=== PATIENT | female | born 1980 | race Caucasian/White ===

== ENCOUNTER 2017-03-29 22:03 | Inpatient (IN) | payer MEDICAID ==
[2017-03-29 22:03] VITALS: BMI 31.3
--- NOTE | 2017-03-29 22:44 | ED PDOC ---
HPI:Nausea, Vomiting, Diarrhea Chief Complaint (Provider): vomiting, diarrhea History Per: Patient History/Exam Limitations: no limitations Onset/Duration Of Symptoms: Hrs Current Symptoms Are (Timing): Better Have you had recent travel within the past 21 days to any of the following countries: [place], [place], [place] or [place]?: No Context: Food (Potato/cheese soup) Quality Of Discomfort: "Pain" Associated Symptoms: Fever, Nausea, Vomiting, Diarrhea, Other (epigastric pain) Last Bowel Movement: Today Additional Complaint(s): 37 y/o F with PMhx of LES, CVA, Splenectomy, presents c/o vomiting, nausea, diarrhea associated with one episode of fever Yesterday. Patient associates the onset of GI symptoms with a potato soup with cheese she ate last night. Has had about 10 episodes of NBNB vomits since last night and about 6 diarrheas. As per patient BM initially were watery but lately became dark. LMB around 2pm. Last vomit around 6pm. She took imodium and zofran at home. Finished Z-pack 2 days ago for resp infection. Patient feels weak and has generalized body aches, c/o epigastric pain. Abnormal Vaginal Bleeding: No Last Menstral Period: Current has period <Joshua Justin - Last Filed: 03/30/17 04:57> <Gabriel Hansen - Last Filed: 03/30/17 20:33> Time Seen by Provider: 03/29/17 22:26 Chief Complaint (Nursing): Flu-like Symptoms NIHSS Stroke Scale - How Severe is the Stroke Level of Consciousness: 2=Obtunded LOC to Questions: 2=Neither correct LOC to commands: 2=Neither correct Best Gaze: 0=Normal Visual: 0=No visual loss Facial: 0=Normal Motor Arm - Left: 4=No movement Motor Arm - Right: 0=No drift Motor Leg - Left: 0=No drift Motor Leg - Right: 0=No drift Limb Ataxia: 0=Absent Sensory: 0=Normal (This NIH assesment was done at 1:30AM at time of observed change in mental status) Best Language: 2=Severe aphasia Dysarthia: 2=Severe, near unintelligible or worse Extinction & Inattention (Neglect): 0=Normal, no object Score: 14 <Gabriel Hansen - Last Filed: 03/30/17 20:33> Past Medical History Vital Signs: Last Vital Signs Temp 98.7 F 03/29/17 22:10 Pulse 127 H 03/29/17 22:10 Resp 18 03/29/17 22:10 BP 92/45 L 03/29/17 22:10 Pulse Ox 99 03/29/17 22:10 - Medical History PMH: Anxiety, Depression, Fractures (METARSAL LEFT FOOT/STRESS FX. /RT WRIST), HTN, Migraine, Chronic Kidney Disease (LUPUS NEPHRITIS) - Surgical History Surgical History: Cholecystectomy - Family History Family History: States: No Known Family Hx <Joshua Justin - Last Filed: 03/30/17 04:57> Vital Signs: Last Vital Signs Temp 97.9 F 03/30/17 01:29 Pulse 119 H 03/30/17 01:29 Resp 18 03/30/17 01:29 BP 82/49 L 03/30/17 01:29 Pulse Ox 99 03/30/17 03:38 <Gabriel Hansen - Last Filed: 03/30/17 20:33> - Home Medications Home Medications: Ambulatory Orders Medication Instructions Recorded Methylphenidate HCl [Concerta] 18 mg PO DAILY 11/10/13 Mycophenolate Mofetil [Cellcept] 500 mg PO BID 11/10/13 Prednisone 5 mg PO DAILY 11/10/13 Sertraline [Zoloft] 100 mg PO DAILY 11/10/13 Simvastatin 20 mg PO HS 05/30/14 Valsartan/Hydrochlorothiazide 1 tab PO DAILY 05/30/14 [Valsartan-Hctz 160-12.5 mg Tab] - Allergies Allergies/Adverse Reactions: Allergies Allergy/AdvReac Type Severity Reaction Status Date / Time latex Allergy RASH Verified 03/29/17 22:10 Penicillins Allergy RASH Verified 03/29/17 22:10 Quinolones Allergy ANAPHYLAXIS Verified 03/29/17 22:10 Review of Systems ROS Statement: Except As Marked, All Systems Reviewed And Found Negative Constitutional: Positive for: Fever (once, yesterday) Gastrointestinal: Positive for: Nausea, Vomiting, Abdominal Pain, Diarrhea Neurological: Positive for: Weakness <Joshua Justin - Last Filed: 03/30/17 04:57> Physical Exam - Reviewed Vital Signs Reviewed: Yes - Physical Exam Appears: Positive for: Non-toxic, Uncomfortable Skin: Positive for: Normal Color, Dry Eye Exam: Positive for: Normal appearance, PERRL Cardiovascular/Chest: Positive for: Regular Rate, Rhythm. Negative for: Gallop Respiratory: Positive for: Normal Breath Sounds. Negative for: Crackles, Rales , Wheezing Gastrointestinal/Abdominal: Positive for: Tenderness (diffuse, worse epigastrium ). Negative for: Distended, Guarding, Rebound Extremity: Positive for: Pedal Edema (trace), Capillary Refill. Negative for: Tenderness, Calf Tenderness Neurologic/Psych: Positive for: Alert, Oriented, Motor/Sensory Deficits (L/arm, L/leg weakness/deformity) <Joshua Justin - Last Filed: 03/30/17 04:57> - Laboratory Results Result Diagrams: 03/29/17 23:59 03/30/17 00:55 - ECG O2 Sat by Pulse Oximetry: 99 - Progress ED Course And Treament: Patient responded well to treatment initially. Labs reviewed showing leukocytosis, low carbon dioxide and GAYE. Suddenly patient developed AMS, accucheck was 70s and she received D50 x1 with some improvement. another 1L of NS IV given to patient as well as Flagyl x1 IV CT head was then added to initial order of CT abd and pelvis. Patient with persistent AMS, Ativan once given to patient Patient to be admitted to ICU, discussed with medical team <Joshua Justin - Last Filed: 03/30/17 04:57> - Laboratory Results Result Diagrams: 03/30/17 15:00 03/30/17 15:00 - Critical Care Total Time (In Min): 60 <Gabriel Hansen - Last Filed: 03/30/17 20:33> Medical Decision Making Medical Decision Making: Gastroenteritis with dehydration IV fluids Zofran, pepcid IV, Benadryl CBC, CMP, Stool Cx, FOBT, Lipase, Phosp, Mg <Joshua Justin - Last Filed: 03/30/17 04:57> Medical Decision Making: Patient seen by this provider personally; multiple reevaluations made by provider and admission arrangements made with hospitalist and FP team. Patient' s mother is known to this provider and is next of kin. She is a physician and is intimately involved with the patient's chronic illnesses and health care decisions. Provider called and spoke at length with her and made her aware of the patient's critical status. She is unfortunately wheel chair bound and is unable to come at this time. She will communicate with her who will come to facility at 8AM. Provider also ecplained his concern for possible underlying hematalogic malignancy given patients deranged WBC and differential. 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 Provider has ordered consultation with Dr Devin Forbes and will attempt to communicate with her in am. <Gabriel Hansen - Last Filed: 03/30/17 20:33> Disposition - Patient ED Disposition Is Patient to be Admitted: Yes - Disposition Disposition Time: 04:55 - Pt Status Changed To: Hospital Disposition Of: Inpatient - Admit Certification Admit to Inpatient:: After my assessment, the patient will require hospitalization for at least two midnights. This is because of the severity of symptoms shown, intensity of services needed, and/or the medical risk in this patient being treated as an outpatient. <Joshua Justin - Last Filed: 03/30/17 04:57> <Gabriel Hansen - Last Filed: 03/30/17 20:33> - Clinical Impression Clinical Impression: GAYE (acute kidney injury), Dehydration, Leukocytosis, Altered mental status - Disposition Condition: FAIR
[2017-03-29] MEDS ORDERED: Sodium Chloride 0.9% 1,000 ML IV STA (22:50)
[2017-03-29] MEDS ORDERED: DiphenhydrAMINE 50 mg/ml Inj IVP STA (23:16)
[2017-03-30 01:04] LABS: BASO # 0.1 K/uL (0.0-0.2); BASO % 0.2 % (0.0-2.0); HEMATOCRIT 33.2 % (34.0-47.0); LYMPH # 0.3 K/uL (1.0-4.3); LYMPH % 0.7 % (20.0-40.0); MEAN CELL VOLUME 85.8 fl (81.0-99.0); MEAN CORPUSCULAR HEMOGLOBIN 26.7 pg (27.0-31.0); MEAN CORPUSCULAR HGB CONC 31.2 g/dL (33.0-37.0); MEAN PLATELET VOLUME 9.7 fl (7.2-11.7); MONO # 1.2 K/uL (0.0-0.8); NEUT # 38.8 K/uL (1.8-7.0); NEUT % 96.1 % (50.0-75.0); PLATELET COUNT 239 K/uL (130-400); RED CELL DISTRIBUTION WIDTH 16.5 % (11.5-14.5)
[2017-03-30 01:12] LABS: WHITE BLOOD COUNT 40.4 K/uL (4.8-10.8)
[2017-03-30 01:13] LABS: ALB/GLOB RATIO 0.8 (1.0-2.1); BILIRUBIN,TOTAL 0.1 mg/dl (0.2-1.3); CALCIUM 6.2 mg/dL (8.4-10.2); PHOSPHOROUS 6.2 mg/dl (2.5-4.5); POTASSIUM 5.1 MMOL/L (3.6-5.0); TOTAL PROTEIN 5.4 G/DL (6.3-8.2)
[2017-03-30 01:14] LABS: MAGNESIUM 0.9 MG/DL (1.6-2.3)
[2017-03-30] MEDS ORDERED: Iohexol 240 (50 ml) PO ONE (01:29)
[2017-03-30] MEDS ORDERED: Sodium Chloride 0.9% 1,000 ML IV STA (01:31)
[2017-03-30] MEDS ORDERED: Iohexol 240 (50 ml) PO STA (01:32)
[2017-03-30 01:49] LABS: METAMYELOCYTE 8 % (0-0); MYELOCYTE 4 % (0-0); NEUTROPHIL 78 % (42-75); TOTAL CELLS COUNTED 100
[2017-03-30 01:50] LABS: ACANTHOCYTES SLIGHT
[2017-03-30] MEDS ORDERED: metroNIDAZOLE 500mg/100ml NS 100 ML IVPB STA (02:12)
[2017-03-30] MEDS ORDERED: Dextrose 50% SYRINGE Inj (50 ml) IVP ONE ×2 (02:13→02:20)
[2017-03-30] MEDS ORDERED: DOPamine 400mg/250ml D5W 400 MG/250 ML BAG IV ONE (02:55)
--- NOTE | 2017-03-30 03:17 | CT ---
EXAM: CT Abdomen and Pelvis Without Intravenous Contrast CLINICAL HISTORY: 37 years old, female; Pain; Abdominal pain; Generalized; Additional info: Abd pain/diarrhea/leukocytosis TECHNIQUE: Axial computed tomography images of the abdomen and pelvis without intravenous contrast. All CT scans at this facility use one or more dose reduction techniques, viz.: automated exposure control; ma/kV adjustment per patient size (including targeted exams where dose is matched to indication; i.e. head); or iterative reconstruction technique. Coronal and sagittal reformatted images were created and reviewed. COMPARISON: No relevant prior studies available. FINDINGS: Limitations: Motion artifact - mild. Lack of intravenous contrast. Lower thorax: Mild atelectasis/scarring. Small hiatal hernia. ABDOMEN: Liver: Unremarkable. Gallbladder and bile ducts: Cholecystectomy. No ductal dilation. Pancreas: Unremarkable. No ductal dilation. Spleen: Not visualized. Adrenals: Mild stranding about LEFT adrenal gland, nonspecific. Kidneys and ureters: Minimal stranding about kidneys, nonspecific. Lobulated kidneys. No renal calculi. No hydronephrosis. Stomach and bowel: Segmental areas of mild mural thickening vs underdistention of LEFT colon. No associated inflammatory stranding. No obstruction. Appendix: Normal caliber. No inflammation. PELVIS: Bladder: Unremarkable. No stones. Reproductive: Small ovarian cysts/follicles. ABDOMEN and PELVIS: Intraperitoneal space: No significant fluid collection. No free air. Bones/joints: Few healing rib fractures. Healing RIGHT pubic rami fractures. Mild scoliosis. Soft tissues: Unremarkable. Vasculature: Minimal atherosclerotic disease. No aneurysm. Lymph nodes: Several subcentimeter short axis lymph nodes within retroperitoneum. IMPRESSION: 1. Mild colitis vs underdistention. Favor underdistention. Clinical correlation is needed. 2. Mild stranding about LEFT adrenal gland, nonspecific. Clinical correlation is needed. 3. Incidental/non-acute findings are described above.
[2017-03-30] MEDS ORDERED: metroNIDAZOLE 500mg/100ml NS 100 ML IVPB ONE (03:23)
--- NOTE | 2017-03-30 03:29 | CT ---
EXAM: CT Head Without Intravenous Contrast CLINICAL HISTORY: 37 years old, female; Signs and symptoms; Altered mental status/memory loss; Additional info: AMS TECHNIQUE: Axial computed tomography images of the head/brain without intravenous contrast. All CT scans at this facility use one or more dose reduction techniques, viz.: automated exposure control; ma/kV adjustment per patient size (including targeted exams where dose is matched to indication; i.e. head); or iterative reconstruction technique. Coronal and sagittal reformatted images were created and reviewed. COMPARISON: No relevant prior studies available. FINDINGS: Brain: Mild atrophy, RIGHT greater than LEFT. Mild encephalomalacia within RIGHT parietal region. Probable mild encephalomalacia within RIGHT temporal region. No intracranial hemorrhage. Irregular calcifications about LEFT basal ganglia. Few scattered tiny parenchymal calcifications. Few scattered foci of decreased attenuation within periventricular/subcortical white matter. Probable chronic lacunar infarcts about RIGHT basal ganglia/internal capsule. No definite edema. Ventricles: No hydrocephalus. Bones/joints: No acute fracture. Periosteal thickening of sinuses. Soft tissues: Unremarkable. Sinuses: Postsurgical changes. Complete opacification of frontal sinuses. [id number] mucosal thickening of ethmoid sinuses, RIGHT greater than LEFT. Complete opacification of RIGHT maxillary sinus. Mildly coastal thickening/minimal fluid of LEFT maxillary sinus. Complete opacification of RIGHT sphenoid sinus. Near complete opacification of LEFT sphenoid sinus. Mastoid air cells: Partial opacification of RIGHT mastoid. Orbits: Unremarkable as visualized. IMPRESSION: 1. Nonspecific white matter changes. Acute infarction may be CT occult within first 24 hours. If a focal deficit persists, consider followup CT or MRI for further evaluation. 2. Sinus disease. 3. Mastoid disease. 4. Incidental/non-acute findings are described above.
[2017-03-30] MEDS ORDERED: methylPREDNISolone 125 MG in Sodium Chloride 0.9% 50 ML IVPB ONE (04:11)
[2017-03-30] MEDS ORDERED: Magnesium Sulfate 2 GM in Sodium Chloride 0.9% 100 ML IVPB ONE (04:25)
[2017-03-30] MEDS: Sodium Chloride 0.9% 1,000 ML IV SCH ×2 (04:27→17:06)
--- NOTE | 2017-03-30 04:47 | CP.PCM.HP ---
History of Present Illness - History of Present Illness History of Present Illness: - History was obtained from patients chart and the ER attending, since patient was having change in mental status, and was given a sedative when the comic writer went down to see the patient. 34 YO F w/ PMH of SLE, SLE nephritis, CVA, HTN presented to the ER with nausea, vomiting associated with a fever of 101 yesterday. Today patient states she is feeling weakness, w/ generalized body aches and epigastric pain. - Patient associates her symptoms of nausea and vomiting with potato soup and cheese she had yesterday. Patient has had 10 episodes of non bloody/ non bilious vomit and 6 episodes of diarrhea. Patients last bm was around 2pm and had her last episode of vomiting at 6pm. She had recently been treated for a resp infection for which she finished taking the Z pack 2 days ago. 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 Father: HTN Maternal Grandfather: Lymphoma Maternal Grandmother: SLE Allergies: Quinolones-anaphylaxis, penicillin-rash, cephalosporins-rash ER Course: CBC: Showed leucocytosis : WBC: 40.4, CMP: Abn values: Low CO2: 10, and GAYE, Magnesium: .9 Accucheck: 70's. Patient was given D50 x 1 with some improvement - Flagyl x 1 IV - IVF - CT head: No acute findings noted - CT abdomen:Mild Colitis vs underdistention. Mild stranding about left adrenal gland. Present on Admission - Present on Admission Any Indicators Present on Admission: No History of DVT/PE: No History of Uncontrolled Diabetes: No Urinary Catheter: No Decubitus Ulcer Present: No Review of Systems - Review of Systems All systems: reviewed and no additional remarkable complaints except Past Patient History - Past Medical History & Family History Past Medical History?: Yes - Past Social History Smoking Status: Former Smoker - CARDIAC Hx Hypertension: Yes - PULMONARY Hx Respiratory Disorders: No - NEUROLOGICAL Hx Migraine: Yes - HEENT Hx HEENT Problems: No - RENAL Hx Chronic Kidney Disease: Yes (LUPUS NEPHRITIS) - ENDOCRINE/METABOLIC Hx Endocrine Disorders: (Lupus) - HEMATOLOGICAL/ONCOLOGICAL Hx Blood Transfusions: Yes Hx Blood Transfusion Reaction: No - INTEGUMENTARY Hx Dermatological Problems: Yes (LUPUS SUN RASH) - MUSCULOSKELETAL/RHEUMATOLOGICAL Hx Fractures: Yes (METARSAL LEFT FOOT/STRESS FX. /RT WRIST) - GASTROINTESTINAL Hx Gastrointestinal Disorders: No - GENITOURINARY/GYNECOLOGICAL Hx Genitourinary Disorders: Yes (LUPUS NEPHRITIS) - PSYCHIATRIC Hx Psychophysiologic Disorder: Yes - SURGICAL HISTORY Hx Cholecystectomy: Yes - ANESTHESIA Hx Anesthesia: Yes Hx Anesthesia Reactions: No Meds Allergies/Adverse Reactions: Allergies Allergy/AdvReac Type Severity Reaction Status Date / Time latex Allergy RASH Verified 03/29/17 22:10 Penicillins Allergy RASH Verified 03/29/17 22:10 Quinolones Allergy ANAPHYLAXIS Verified 03/29/17 22:10 Physical Exam - Constitutional Appears: Confused - Eye Exam Eye Exam: Normal appearance, PERRL Pupil Exam: NORMAL ACCOMODATION - Respiratory Exam Respiratory Exam: Clear to Auscultation Bilateral, NORMAL BREATHING PATTERN. absent: Rhonchi, Wheezes - Cardiovascular Exam Cardiovascular Exam: REGULAR RHYTHM, +S1, +S2 - GI/Abdominal Exam GI & Abdominal Exam: Normal Bowel Sounds, Soft, Tenderness Additional comments: epigastric tenderness - Extremities Exam Additional comments: Left arm and left leg weakness and deformity - Neurological Exam Additional comments: Unable to preform because of patients mental status - Skin Skin Exam: Normal Color, Warm Results - Vital Signs Recent Vital Signs: Last Vital Signs Temp 99.4 F 03/30/17 04:33 Pulse 126 H 03/30/17 04:33 Resp 18 03/30/17 04:33 BP 102/71 03/30/17 04:33 Pulse Ox 99 03/30/17 04:33 - Labs Result Diagrams: 03/29/17 23:59 03/30/17 00:55 Labs: Laboratory Results - last 24 hr 03/29/17 03/30/17 03/30/17 23:59 00:55 01:00 WBC 40.4 H* RBC 3.87 Hgb 10.3 L Hct 33.2 L MCV 85.8 MCH 26.7 L MCHC 31.2 L RDW 16.5 H Plt Count 239 MPV 9.7 Neut % (Auto) 96.1 H Lymph % (Auto) 0.7 L Pacific % (Auto) 3.0 Eos % (Auto) 0.0 Baso % (Auto) 0.2 Neut # 38.8 H Lymph # 0.3 L [place] # 1.2 H Eos # 0.0 Baso # 0.1 Neutrophils % (Manual) 78 H Band Neutrophils % 8 H Lymphocytes % (Manual) 1 L Monocytes % (Manual) 1 Metamyelocytes % 8 H Myelocytes % 4 H Platelet Estimate Normal Hypochromasia (manual) Slight Anisocytosis (manual) Slight Target Cells Slight Ovalocytes Slight Acanthocytes (Spur) Slight Sodium 136 Potassium 5.1 H Chloride 115 H Carbon Dioxide 10 L* D Anion Gap 16 BUN 52 H Creatinine 4.2 H Est GFR ( Amer) 14 Est GFR (Non-Af Amer) 12 POC Glucose (mg/dL) Random Glucose 95 Lactic Acid 1.3 Calcium 6.2 L Phosphorus 6.2 H Magnesium 0.9 L* Total Bilirubin 0.1 L AST 79 H ALT 48 Alkaline Phosphatase 53 Total Creatine Kinase Total Protein 5.4 L Albumin 2.4 L Globulin 3.0 Albumin/Globulin Ratio 0.8 L Lipase 141 Influenza Typ A,B (EIA) 03/30/17 03/30/17 03/30/17 02:13 02:31 03:41 WBC RBC Hgb Hct MCV MCH MCHC RDW Plt Count MPV Neut % (Auto) Lymph % (Auto) Pacific % (Auto) Eos % (Auto) Baso % (Auto) Neut # Lymph # Pacific # Eos # Baso # Neutrophils % (Manual) Band Neutrophils % Lymphocytes % (Manual) Monocytes % (Manual) Metamyelocytes % Myelocytes % Platelet Estimate Hypochromasia (manual) Anisocytosis (manual) Target Cells Ovalocytes Acanthocytes (Spur) Sodium Potassium Chloride Carbon Dioxide Anion Gap BUN Creatinine Est GFR ( Amer) Est GFR (Non-Af Amer) POC Glucose (mg/dL) 72 281 H Random Glucose Lactic Acid Calcium Phosphorus Magnesium Total Bilirubin AST ALT Alkaline Phosphatase Total Creatine Kinase Total Protein Albumin Globulin Albumin/Globulin Ratio Lipase Influenza Typ A,B (EIA) Negative for flu a/b 03/30/17 03:44 WBC RBC Hgb Hct MCV MCH MCHC RDW Plt Count MPV Neut % (Auto) Lymph % (Auto) Pacific % (Auto) Eos % (Auto) Baso % (Auto) Neut # Lymph # Pacific # Eos # Baso # Neutrophils % (Manual) Band Neutrophils % Lymphocytes % (Manual) Monocytes % (Manual) Metamyelocytes % Myelocytes % Platelet Estimate Hypochromasia (manual) Anisocytosis (manual) Target Cells Ovalocytes Acanthocytes (Spur) Sodium Potassium Chloride Carbon Dioxide Anion Gap BUN Creatinine Est GFR ( Amer) Est GFR (Non-Af Amer) POC Glucose (mg/dL) Random Glucose Lactic Acid Calcium Phosphorus Magnesium Total Bilirubin AST ALT Alkaline Phosphatase Total Creatine Kinase 64 Total Protein Albumin Globulin Albumin/Globulin Ratio Lipase Influenza Typ A,B (EIA) Assessment & Plan - Assessment and Plan (Free Text) Assessment: 1) Abdominal pain most likely secondary to Collitis - NPO except meds - IVF @ 125 - Flagyl 500mg Q8 - CT scan: CT abdomen:Mild Colitis vs underdistention - Morphine 2mg IVP PRN for pain - C Diff ordered, since patient has been having diarrhea secondary to taking antibiotics recently 2) Leukmoid reaction - Leucocytosis w/ increased neutrophil precursors - Metomyelocytes:8%, Myelocytes: 4% - Pt has history of ITP - Need to order LAP : Will call lab unable to find in EMR - F/U w/ LDH - Consulted Hem Onc: Dr. Forbes 3) Pre renal failure secondary to dehydration - BUN: 52, Creatinine: 4.2. BUN Creatine ratio >20:1 - 2L bolus in ER. Continue with IVF. - Nephrology consulted. 4) SLE nephritis - IV methylprednislone - c/w Mycophenolic acid - Nephro consulted 5) Diarrhea - F/U with C diff and stool cultures 6) Hypertension - Currently hold Diovan , since patient is hypotensive 7) Hyperlipidemia - Simvastatin 20 mg 8) Hypomagnesemia - Mg+: .9 - 2 grams of Magnesium has been ordered - F/U with repeat values 9) Prophylaxis - DVT : 5000 Heparin SC and SCD - GI: Protonix
[2017-03-30] MEDS: metroNIDAZOLE 500mg/100ml NS 100 ML IVPB SCH ×2 (10:00→17:08)
[2017-03-30] MEDS ORDERED: methylPREDNISolone 40 MG in Sodium Chloride 0.9% 50 ML IVPB SCH (10:00)
--- NOTE | 2017-03-30 11:29 | CP.PCM.PN ---
Subjective - Date & Time of Evaluation Date of Evaluation: 03/30/17 Time of Evaluation: 09:00 - Subjective Subjective: Patient seen an evaluated at the bedside this morning. Non verbal, responsive to pain. Eyes open, no signs of acute distress. Objective - Vital Signs/Intake and Output Vital Signs (last 24 hours): Temp Pulse Resp BP Pulse Ox 97.5 F L 135 H 28 H 99/68 L 99 03/30/17 08:00 03/30/17 08:00 03/30/17 08:29 03/30/17 08:00 03/30/17 08:00 - Medications Medications: Current Medications Heparin Sodium (Porcine) (Heparin) 5,000 units SC Q12 HECTOR PRN Reason: Protocol Sodium Chloride (Sodium Chloride 0.9%) 1,000 mls @ 125 mls/hr IV .Q8H [facility] Stop: 03/31/17 04:09 Last Admin: 03/30/17 04:27 Dose: 125 mls/hr Metronidazole (Flagyl 500mg/100ml Ns) 100 mls @ 100 mls/hr IVPB Q8 HECTOR PRN Reason: Protocol Methylprednisolone 40 mg/ (Sodium Chloride) 50 mls @ 100 mls/hr IVPB Q6 [facility] Last Admin: 03/30/17 06:50 Dose: 100 mls/hr Morphine Sulfate (Morphine) 2 mg IVP Q6 PRN PRN Reason: Pain, moderate (4-7) Mycophenolate Mofetil (Cellcept Cap) 500 mg PO BID [facility] Ondansetron HCl (Zofran Inj) 4 mg IVP Q6 PRN PRN Reason: Nausea/Vomiting Pantoprazole Sodium (Protonix Inj) 40 mg IVP DAILY [facility] - Labs Labs: 03/29/17 23:59 03/30/17 00:55 Assessment and Plan - Assessment and Plan (Free Text) Assessment: Assessment: 37 y/o female woth PMHx of Lupus, Lupus Nephritis (Stage V), Hx of CVA and Meningitis admitted for Sepsis, GAYE, and AMS. #Sepsis -Afebrile, Tachycardic, Tachypnic, Leukocytosis (WBC 40 on admission) -Likely secondary to Colitits as pt had GI symptoms noted on Abdominal CT -Lactic Acid 1.3 -Flagyl 500mg q8 -Received 2 blous in the ER. -IV fluid hydration, NS at 125cc/hr. Central Line placement planned as access was lost -Stool Cx, BCx, UA ordered -Cdiff ordered since pt had recent hx of taking ABX -NPO except meds -ID Consulted #AMS -Verbally unresponsive this morning. Mentation was in noted to be in tact on arrival to ED -Pt recieved Morphine, Ativan, and Benadryl for agitation which may have induced opiod psychosis -Other likely etiologies include Sepsis/Metabolic Encephalopathy vs Analgesic psychosis -F/U VBG, LDH, Utox, Alcohol serum, Ammonium -Neuro Consulted #Leukmoid reaction - Leucocytosis w/ increased neutrophil precursors - Metomyelocytes:8%, Myelocytes: 4% - Pt has history of ITP - Need to order LAP : Will call lab unable to find in EMR - F/U w/ LDH - Consulted Hem Onc: Dr. Forbes. Consult appreciated- likely a leukomoid reaction. #Acute Kidney Injury secondary to dehydration - BUN: 52, Creatinine: 4.2. BUN Creatine ratio >20:1 - 2L bolus in ER. C/w IV fluids -Hypomagnesia, Mg repleted, 2g Mg given. -Nephrology consulted. -F/U BMP, CPK # SLE nephritis - IV methylprednislone 125mg x1 in ER, now on 40mg q6 IVPB - c/w Mycophenolic acid 500mg PO BID - Nephro consulted (Dr. Florian) -F/U Complement C3, C4, and Creatine #Diarrhea - F/U with C diff and stool cultures # Hypertension - BP 90's/60's -Likely secondary to sepsis -Currently hold Diovan #Hyperlipidemia - Simvastatin 20 mg # Prophylaxis - DVT : 5000 Heparin SC and SCD - GI: Protonix
--- NOTE | 2017-03-30 11:32 | CP.PCM.PN ---
Subjective - Date & Time of Evaluation Date of Evaluation: 03/30/17 Time of Evaluation: 11:30 - Subjective Subjective: Pt seen, peripheral smear examined, She seems to have a leukomoid reaction, no promyeloblastts or blasts, No evidence of leukemia Further note to follow. Objective - Vital Signs/Intake and Output Vital Signs (last 24 hours): Temp Pulse Resp BP Pulse Ox 97.5 F L 135 H 28 H 99/68 L 99 03/30/17 08:00 03/30/17 08:00 03/30/17 08:29 03/30/17 08:00 03/30/17 08:00 - Medications Medications: Current Medications Heparin Sodium (Porcine) (Heparin) 5,000 units SC Q12 HECTOR PRN Reason: Protocol Sodium Chloride (Sodium Chloride 0.9%) 1,000 mls @ 125 mls/hr IV .Q8H [facility] Stop: 03/31/17 04:09 Last Admin: 03/30/17 04:27 Dose: 125 mls/hr Metronidazole (Flagyl 500mg/100ml Ns) 100 mls @ 100 mls/hr IVPB Q8 HECTOR PRN Reason: Protocol Methylprednisolone 40 mg/ (Sodium Chloride) 50 mls @ 100 mls/hr IVPB Q6 [facility] Last Admin: 03/30/17 06:50 Dose: 100 mls/hr Morphine Sulfate (Morphine) 2 mg IVP Q6 PRN PRN Reason: Pain, moderate (4-7) Mycophenolate Mofetil (Cellcept Cap) 500 mg PO BID [facility] Ondansetron HCl (Zofran Inj) 4 mg IVP Q6 PRN PRN Reason: Nausea/Vomiting Pantoprazole Sodium (Protonix Inj) 40 mg IVP DAILY [facility] - Labs Labs: 03/29/17 23:59 03/30/17 00:55
--- NOTE | 2017-03-30 11:41 | RAD ---
HISTORY: admit COMPARISON: Comparison chest dated 11/11/2013. . FINDINGS: LUNGS: Poor inspiration with low lung volumes, crowded bronchovascular markings and mild bibasilar atelectasis. PLEURA: No significant pleural effusion identified, no pneumothorax apparent. CARDIOVASCULAR: Heart size is upper limits of normal/ borderline enlarged likely in part due to poor inspiration and AP positioning. OSSEOUS STRUCTURES: Multiple old healed right posterolateral rib fractures again noted. VISUALIZED UPPER ABDOMEN: Normal. OTHER FINDINGS: None. IMPRESSION: Poor inspiration with low lung volumes, crowded bronchovascular markings and mild bibasilar atelectasis.
[2017-03-30] MEDS ORDERED: Sodium Chloride 3% for Inhalation 4 ML VIAL.NEB IH PRN (12:26)
[2017-03-30] MEDS ORDERED: Vancomycin 1 GM in Dextrose 5% In Water 250 ML IVPB ONE (13:00)
--- NOTE | 2017-03-30 13:44 | CP.PCM.CON ---
History of Present Illness - History of Present Illness History of Present Illness: Infectious Disease Consultation Note- asked to see this patient at the request of and family practice team for sepsis . HPI- History obtained entirely from and family practice team as pt. is lethargic and nonverbal in ICU. Pt. is a 34 year old female with pmh of SLE , SLE nephritis, CVA , HTN , s/p spelnectomy many years ago and apparently h/o encephalitis and CVA many years ago with residual heiplagia who presented to ED this am with c/o nausea and vomiting and diarrhea for past day. Apparenly pt. had recent sinus infection and started taking zithormax which she completed 2 days ago. also apparently pt. had potatoe soup yesterday prior to her symptoms. per Jono Castañeda who follows patient routinely in clinic pt. had denied any h/o recent travel and no h/o recent sick contacts. per patient was lucid when she first presented to ED but developed AMS and be came lethargic and she was found to have wbc of 40,000, normal lactate, creatinine of 4 (baseline is 2 ), and had brain CT which did not show any acute findings and abd ct which ? mild colitis. negative cxr as per report as well. pt. received fkagyl IV x 1 dose in ED. currently surgical team are trying to place central line in patient as apparently multiple attempts have been made by Lead Assistant Manager and pt. is difficult line access as per history . also pt. just got intubated by anesthesia for airway protection . pt. is tachycardic but not hypotensive. PMH: 1987 Was diagnosed with SLE, ITP -2000 Stroke, bacterial meningitis -HTN Surgical Hx: 1987- Spleenectomy -2012- Cholecystectomy FamHx: Mother: Stroke? Father: HTN Maternal Grandfather: Lymphoma Maternal Grandmother: SLE Allergies: Quinolones-anaphylaxis, penicillin-rash, cephalosporins-rash Review of Systems - Review of Systems Review of Systems: unable to obtain as pt. is lethargic and AMS and just got intubated as well. asper who spoke with patient';s mother pt. only had c/o nausea, vomiting and diarrhea Past Patient History - Past Medical History & Family History Past Medical History?: Yes - Past Social History Smoking Status: Never Smoked Home Situation {Lives}: With Family - CARDIAC Hx Hypertension: Yes - PULMONARY Hx Respiratory Disorders: No - NEUROLOGICAL Hx Meningitis: Yes Hx Migraine: Yes - HEENT Hx HEENT Problems: No - RENAL Hx Chronic Kidney Disease: Yes (LUPUS NEPHRITIS) - ENDOCRINE/METABOLIC Hx Endocrine Disorders: (Lupus) Hx Systemic Lupus Erythematosus: Yes - HEMATOLOGICAL/ONCOLOGICAL Hx Blood Transfusions: Yes Hx Blood Transfusion Reaction: No Other/Comment: pt has hx of lupus - INTEGUMENTARY Hx Dermatological Problems: Yes (LUPUS SUN RASH) - MUSCULOSKELETAL/RHEUMATOLOGICAL Hx Falls: No Hx Fractures: Yes (METARSAL LEFT FOOT/STRESS FX. /RT WRIST) - GASTROINTESTINAL Hx Gastrointestinal Disorders: No - GENITOURINARY/GYNECOLOGICAL Hx Genitourinary Disorders: Yes (LUPUS NEPHRITIS) - PSYCHIATRIC Hx Psychophysiologic Disorder: Yes Hx Depression: Yes Hx Substance Use: No - SURGICAL HISTORY Hx Cholecystectomy: Yes - ANESTHESIA Hx Anesthesia: Yes Hx Anesthesia Reactions: No Meds Allergies/Adverse Reactions: Allergies Allergy/AdvReac Type Severity Reaction Status Date / Time latex Allergy RASH Verified 03/29/17 22:10 Penicillins Allergy RASH Verified 03/29/17 22:10 Quinolones Allergy ANAPHYLAXIS Verified 03/29/17 22:10 - Medications Medications: Current Medications Heparin Sodium (Porcine) (Heparin) 5,000 units SC Q12 HECTOR PRN Reason: Protocol Sodium Chloride (Sodium Chloride 0.9%) 1,000 mls @ 125 mls/hr IV .Q8H COUNT INCLUDES THE [facility] Stop: 03/31/17 04:09 Last Admin: 03/30/17 04:27 Dose: 125 mls/hr Metronidazole (Flagyl 500mg/100ml Ns) 100 mls @ 100 mls/hr IVPB Q8 HECTOR PRN Reason: Protocol Vancomycin HCl 1 gm/ Dextrose 250 mls @ 250 mls/hr IVPB ONCE ONE PRN Reason: Protocol Stop: 03/30/17 13:59 Methylprednisolone (Solu-Medrol) 40 mg IVP Q6 COUNT INCLUDES THE [facility] Morphine Sulfate (Morphine) 2 mg IVP Q6 PRN PRN Reason: Pain, moderate (4-7) Mycophenolate Mofetil (Cellcept Cap) 500 mg PO BID COUNT INCLUDES THE [facility] Ondansetron HCl (Zofran Inj) 4 mg IVP Q6 PRN PRN Reason: Nausea/Vomiting Pantoprazole Sodium (Protonix Inj) 40 mg IVP DAILY COUNT INCLUDES THE [facility] Physical Exam - Constitutional Additional comments: lethargic and AMS - Head Exam Head Exam: ATRAUMATIC - Eye Exam Eye Exam: PERRL - ENT Exam Additional comments: ET tube in place - Neck Exam Additional comments: supple - Respiratory Exam Respiratory Exam: Clear to Auscultation Bilateral, NORMAL BREATHING PATTERN - Cardiovascular Exam Cardiovascular Exam: Tachycardia, +S1, +S2 - GI/Abdominal Exam GI & Abdominal Exam: Normal Bowel Sounds, Soft Additional comments: NT, ND - Extremities Exam Extremities exam: Positive for: normal inspection Additional comments: no edema b/l LE - Neurological Exam Neurological exam: Altered - Skin Additional comments: erythematous scaly fungal tinea like rash under both breast b/l no other rash seen Results - Vital Signs Recent Vital Signs: Last Vital Signs Temp 99.2 F 03/30/17 12:00 Pulse 125 H 03/30/17 12:00 Resp 25 H 03/30/17 12:00 BP 135/92 H 03/30/17 12:00 Pulse Ox 97 03/30/17 12:00 - Labs Result Diagrams: 03/29/17 23:59 03/30/17 00:55 Labs: Laboratory Results - last 24 hr 03/29/17 03/30/17 03/30/17 23:59 00:55 01:00 WBC 40.4 H* RBC 3.87 Hgb 10.3 L Hct 33.2 L MCV 85.8 MCH 26.7 L MCHC 31.2 L RDW 16.5 H Plt Count 239 MPV 9.7 Neut % (Auto) 96.1 H Lymph % (Auto) 0.7 L Jewell % (Auto) 3.0 Eos % (Auto) 0.0 Baso % (Auto) 0.2 Neut # 38.8 H Lymph # 0.3 L Jewell # 1.2 H Eos # 0.0 Baso # 0.1 Neutrophils % (Manual) 78 H Band Neutrophils % 8 H Lymphocytes % (Manual) 1 L Monocytes % (Manual) 1 Metamyelocytes % 8 H Myelocytes % 4 H Platelet Estimate Normal Hypochromasia (manual) Slight Anisocytosis (manual) Slight Target Cells Slight Ovalocytes Slight Acanthocytes (Spur) Slight Sodium 136 Potassium 5.1 H Chloride 115 H Carbon Dioxide 10 L* D Anion Gap 16 BUN 52 H Creatinine 4.2 H Est GFR ( Amer) 14 Est GFR (Non-Af Amer) 12 POC Glucose (mg/dL) Random Glucose 95 Lactic Acid 1.3 Calcium 6.2 L Phosphorus 6.2 H Magnesium 0.9 L* Total Bilirubin 0.1 L AST 79 H ALT 48 Alkaline Phosphatase 53 Total Creatine Kinase Total Protein 5.4 L Albumin 2.4 L Globulin 3.0 Albumin/Globulin Ratio 0.8 L Lipase 141 Influenza Typ A,B (EIA) 03/30/17 03/30/17 03/30/17 02:13 02:31 03:41 WBC RBC Hgb Hct MCV MCH MCHC RDW Plt Count MPV Neut % (Auto) Lymph % (Auto) Jewell % (Auto) Eos % (Auto) Baso % (Auto) Neut # Lymph # Jewell # Eos # Baso # Neutrophils % (Manual) Band Neutrophils % Lymphocytes % (Manual) Monocytes % (Manual) Metamyelocytes % Myelocytes % Platelet Estimate Hypochromasia (manual) Anisocytosis (manual) Target Cells Ovalocytes Acanthocytes (Spur) Sodium Potassium Chloride Carbon Dioxide Anion Gap BUN Creatinine Est GFR ( Amer) Est GFR (Non-Af Amer) POC Glucose (mg/dL) 72 281 H Random Glucose Lactic Acid Calcium Phosphorus Magnesium Total Bilirubin AST ALT Alkaline Phosphatase Total Creatine Kinase Total Protein Albumin Globulin Albumin/Globulin Ratio Lipase Influenza Typ A,B (EIA) Negative for flu a/b 03/30/17 03:44 WBC RBC Hgb Hct MCV MCH MCHC RDW Plt Count MPV Neut % (Auto) Lymph % (Auto) Jewell % (Auto) Eos % (Auto) Baso % (Auto) Neut # Lymph # Jewell # Eos # Baso # Neutrophils % (Manual) Band Neutrophils % Lymphocytes % (Manual) Monocytes % (Manual) Metamyelocytes % Myelocytes % Platelet Estimate Hypochromasia (manual) Anisocytosis (manual) Target Cells Ovalocytes Acanthocytes (Spur) Sodium Potassium Chloride Carbon Dioxide Anion Gap BUN Creatinine Est GFR ( Amer) Est GFR (Non-Af Amer) POC Glucose (mg/dL) Random Glucose Lactic Acid Calcium Phosphorus Magnesium Total Bilirubin AST ALT Alkaline Phosphatase Total Creatine Kinase 64 Total Protein Albumin Globulin Albumin/Globulin Ratio Lipase Influenza Typ A,B (EIA) Laboratory Results - last 72 hr 03/29/17 03/30/17 03/30/17 23:59 00:55 01:00 WBC 40.4 H* RBC 3.87 Hgb 10.3 L Hct 33.2 L MCV 85.8 MCH 26.7 L MCHC 31.2 L RDW 16.5 H Plt Count 239 MPV 9.7 Neut % (Auto) 96.1 H Lymph % (Auto) 0.7 L Jewell % (Auto) 3.0 Eos % (Auto) 0.0 Baso % (Auto) 0.2 Neut # 38.8 H Lymph # 0.3 L Jewell # 1.2 H Eos # 0.0 Baso # 0.1 Neutrophils % (Manual) 78 H Band Neutrophils % 8 H Lymphocytes % (Manual) 1 L Monocytes % (Manual) 1 Metamyelocytes % 8 H Myelocytes % 4 H Platelet Estimate Normal Hypochromasia (manual) Slight Anisocytosis (manual) Slight Target Cells Slight Ovalocytes Slight Acanthocytes (Spur) Slight Sodium 136 Potassium 5.1 H Chloride 115 H Carbon Dioxide 10 L* D Anion Gap 16 BUN 52 H Creatinine 4.2 H Est GFR ( Amer) 14 Est GFR (Non-Af Amer) 12 POC Glucose (mg/dL) Random Glucose 95 Lactic Acid 1.3 Calcium 6.2 L Phosphorus 6.2 H Magnesium 0.9 L* Total Bilirubin 0.1 L AST 79 H ALT 48 Alkaline Phosphatase 53 Total Creatine Kinase Total Protein 5.4 L Albumin 2.4 L Globulin 3.0 Albumin/Globulin Ratio 0.8 L Lipase 141 Influenza Typ A,B (EIA) 03/30/17 03/30/17 03/30/17 02:13 02:31 03:41 WBC RBC Hgb Hct MCV MCH MCHC RDW Plt Count MPV Neut % (Auto) Lymph % (Auto) Jewell % (Auto) Eos % (Auto) Baso % (Auto) Neut # Lymph # Jewell # Eos # Baso # Neutrophils % (Manual) Band Neutrophils % Lymphocytes % (Manual) Monocytes % (Manual) Metamyelocytes % Myelocytes % Platelet Estimate Hypochromasia (manual) Anisocytosis (manual) Target Cells Ovalocytes Acanthocytes (Spur) Sodium Potassium Chloride Carbon Dioxide Anion Gap BUN Creatinine Est GFR ( Amer) Est GFR (Non-Af Amer) POC Glucose (mg/dL) 72 281 H Random Glucose Lactic Acid Calcium Phosphorus Magnesium Total Bilirubin AST ALT Alkaline Phosphatase Total Creatine Kinase Total Protein Albumin Globulin Albumin/Globulin Ratio Lipase Influenza Typ A,B (EIA) Negative for flu a/b 03/30/17 03:44 WBC RBC Hgb Hct MCV MCH MCHC RDW Plt Count MPV Neut % (Auto) Lymph % (Auto) Jewell % (Auto) Eos % (Auto) Baso % (Auto) Neut # Lymph # Jewell # Eos # Baso # Neutrophils % (Manual) Band Neutrophils % Lymphocytes % (Manual) Monocytes % (Manual) Metamyelocytes % Myelocytes % Platelet Estimate Hypochromasia (manual) Anisocytosis (manual) Target Cells Ovalocytes Acanthocytes (Spur) Sodium Potassium Chloride Carbon Dioxide Anion Gap BUN Creatinine Est GFR ( Amer) Est GFR (Non-Af Amer) POC Glucose (mg/dL) Random Glucose Lactic Acid Calcium Phosphorus Magnesium Total Bilirubin AST ALT Alkaline Phosphatase Total Creatine Kinase 64 Total Protein Albumin Globulin Albumin/Globulin Ratio Lipase Influenza Typ A,B (EIA) Microbiology 05/30/14 Unknown Stool Stool Culture - Final 05/30/14 Unknown Stool Ova and Parasite Concentrate Exam - Final 05/30/14 20:51 Blood Blood Culture - Final 05/30/14 20:51 Blood Gram Stain - Final NO GROWTH AFTER 5 DAYS TEST NOT PERFORMED 05/30/14 20:51 Blood Blood Culture - Final 05/30/14 20:51 Blood Gram Stain - Final NO GROWTH AFTER 5 DAYS TEST NOT PERFORMED Accession No. : [id number] Patient Name / ID : MEZHOUDI NEZHA / [id number] Exam Date : 03/30/2017 01:40:52 ( Approved ) Study Comment : Sex / Age : F / 37Y Creator : Kenyon Cox MD Dictator : Roving Hauler : Engraver Seals : Kenyon Cox MD Approver2 : Report Date : 03/30/2017 11:39:23 My Comment : HISTORY: admit COMPARISON: Comparison chest dated 11/11/2013. . FINDINGS: LUNGS: Poor inspiration with low lung volumes, crowded bronchovascular markings and mild bibasilar atelectasis. PLEURA: No significant pleural effusion identified, no pneumothorax apparent. CARDIOVASCULAR: Heart size is upper limits of normal/ borderline enlarged likely in part due to poor inspiration and AP positioning. OSSEOUS STRUCTURES: Multiple old healed right posterolateral rib fractures again noted. VISUALIZED UPPER ABDOMEN: Normal. OTHER FINDINGS: None. IMPRESSION: Poor inspiration with low lung volumes, crowded bronchovascular markings and mild bibasilar atelectasis. Accession No. : [id number] Patient Name / ID : KAT GILMAN / [id number] Exam Date : 03/30/2017 02:47:18 ( Approved ) Study Comment : Sex / Age : F / 37Y Creator : Cash Velasco MD Dictator : Roving Hauler : Engraver Seals : Cash Velasco MD Approver2 : Report Date : 03/30/2017 03:28:00 My Comment : [facility] Division of Radiology [address] [place] [address] Tel. no. Patient Name: KALINA STEPHENS Pt. Address: [address] [place] [address] Rec #: [id number] [place] [address]: Tyrone BROWNE,Gabriel Wren Pt CELL Order Location: VAL : 1980 Female Age: 37 Order #: [id number] Reason for exam: AMS CT Scan HEAD W/O CONTRAST Exam Date: 03/30/17 This imaging exam was performed at [facility] EXAM: CT Head Without Intravenous Contrast CLINICAL HISTORY: 37 years old, female; Signs and symptoms; Altered mental status/memory loss; Additional info: AMS TECHNIQUE: Axial computed tomography images of the head/brain without intravenous contrast. All CT scans at this facility use one or more dose reduction techniques, viz.: automated exposure control; ma/kV adjustment per patient size (including targeted exams where dose is matched to indication; i.e. head); or iterative reconstruction technique. Coronal and sagittal reformatted images were created and reviewed. COMPARISON: No relevant prior studies available. FINDINGS: Brain: Mild atrophy, RIGHT greater than LEFT. Mild encephalomalacia within RIGHT parietal region. Probable mild encephalomalacia within RIGHT temporal region. No intracranial hemorrhage. Irregular calcifications about LEFT basal ganglia. Few scattered tiny parenchymal calcifications. Few scattered foci of decreased attenuation within periventricular/subcortical white matter. Probable chronic lacunar infarcts about RIGHT basal ganglia/internal capsule. No definite edema. Ventricles: No hydrocephalus. Bones/joints: No acute fracture. Periosteal thickening of sinuses. Soft tissues: Unremarkable. Sinuses: Postsurgical changes. Complete opacification of frontal sinuses. [id number] mucosal thickening of ethmoid sinuses, RIGHT greater than LEFT. Complete opacification of RIGHT maxillary sinus. Mildly coastal thickening/minimal fluid of LEFT maxillary sinus. Complete opacification of RIGHT sphenoid sinus. Near complete opacification of LEFT sphenoid sinus. Mastoid air cells: Partial opacification of RIGHT mastoid. Orbits: Unremarkable as visualized. IMPRESSION: 1. Nonspecific white matter changes. Acute infarction may be CT occult within first 24 hours. If a focal deficit persists, consider followup CT or MRI for further evaluation. 2. Sinus disease. 3. Mastoid disease. 4. Incidental/non-acute findings are described above. Dictated By: Cash Velasco MD Dictated Date/Time: 03/30/17327 Signed By: Cash Velasco MD Date Signed: [id number] Transcribed By: AZEEM Transcribe Date/Time : 03/30/17327 ACYP02/VRD Accession No. : [id number] Patient Name / ID : MEZHOUDI NEZHA / [id number] Exam Date : 03/30/2017 02:49:51 ( Approved ) Study Comment : Sex / Age : F / 37Y Creator : Cash Velasco MD Dictator : Roving Hauler : Engraver Seals : Cash Velasco MD Approver2 : Report Date : 03/30/2017 03:17:00 My Comment : [facility] Division of Radiology [address] [address] Tel. no. Patient Name: KALINA STEPHENS Pt. Address: [address] [place] [address]. Rec #: [id number] [place] [address]: Tyrone BROWNE,Gabriel Wren Pt CELL Order Location: VAL : 1980 Female Age: 37 Order #: [id number] Reason for exam: abd pain/diarrhea/leukocytosis CT Scan ABD PELVIS W/O PO OR IV CONT Exam Date: 03/30/17 This imaging exam was performed at [facility] ADDENDUM Addendum created by Cash Velasco MD on 03/30/2017 3:38:31 AM EST Reproductive: Small ovarian cysts/follicles. Tampon. Bladder: Borderline anterior superior bladder wall thickening, up to 5 mm. IMPRESSION: 1. Mild colitis vs underdistention. Favor underdistention. Clinical correlation is needed. 2. Mild stranding about LEFT adrenal gland, nonspecific. Clinical correlation is needed. 3. Borderline bladder wall thickening. Correlate with urinalysis. 4. Incidental/non-acute findings are described above. Initial report created on 03/30/2017 3:17:30 AM EST EXAM: CT Abdomen and Pelvis Without Intravenous Contrast CLINICAL HISTORY: 37 years old, female; Pain; Abdominal pain; Generalized; Additional info: Abd pain/diarrhea/leukocytosis TECHNIQUE: Axial computed tomography images of the abdomen and pelvis without intravenous contrast. All CT scans at this facility use one or more dose reduction techniques, viz.: automated exposure control; ma/kV adjustment per patient size (including targeted exams where dose is matched to indication; i.e. head); or iterative reconstruction technique. Coronal and sagittal reformatted images were created and reviewed. COMPARISON: No relevant prior studies available. FINDINGS: Limitations: Motion artifact - mild. Lack of intravenous contrast. Lower thorax: Mild atelectasis/scarring. Small hiatal hernia. ABDOMEN: Liver: Unremarkable. Gallbladder and bile ducts: Cholecystectomy. No ductal dilation. Pancreas: Unremarkable. No ductal dilation. Spleen: Not visualized. Adrenals: Mild stranding about LEFT adrenal gland, nonspecific. Kidneys and ureters: Minimal stranding about kidneys, nonspecific. Lobulated kidneys. No renal calculi. No hydronephrosis. Stomach and bowel: Segmental areas of mild mural thickening vs underdistention of LEFT colon. No associated inflammatory stranding. No obstruction. Appendix: Normal caliber. No inflammation. PELVIS: Bladder: Unremarkable. No stones. Reproductive: Small ovarian cysts/follicles. ABDOMEN and PELVIS: Intraperitoneal space: No significant fluid collection. No free air. Bones/joints: Few healing rib fractures. Healing RIGHT pubic rami fractures. Mild scoliosis. Soft tissues: Unremarkable. Vasculature: Minimal atherosclerotic disease. No aneurysm. Lymph nodes: Several subcentimeter short axis lymph nodes within retroperitoneum. IMPRESSION: 1. Mild colitis vs underdistention. Favor underdistention. Clinical correlation is needed. 2. Mild stranding about LEFT adrenal gland, nonspecific. Clinical correlation is needed. 3. Incidental/non-acute findings are described above. Addendum Dictated By: Cash Velasco MD Addendum Dictated Date Time:03/30/1707/12/337 Addendum Signed by:Cash Velasco MD Addendum signed Date Time: 03/30/17337 Addendum Transcribed By: AZEEM Addendum Transcribed Date Time: 03/30/1707/12/337 ACYP02/VRD EXAM: CT Abdomen and Pelvis Without Intravenous Contrast CLINICAL HISTORY: 37 years old, female; Pain; Abdominal pain; Generalized; Additional info: Abd pain/diarrhea/leukocytosis TECHNIQUE: Axial computed tomography images of the abdomen and pelvis without intravenous contrast. All CT scans at this facility use one or more dose reduction techniques, viz.: automated exposure control; ma/kV adjustment per patient size (including targeted exams where dose is matched to indication; i.e. head); or iterative reconstruction technique. Coronal and sagittal reformatted images were created and reviewed. COMPARISON: No relevant prior studies available. FINDINGS: Limitations: Motion artifact - mild. Lack of intravenous contrast. Lower thorax: Mild atelectasis/scarring. Small hiatal hernia. ABDOMEN: Liver: Unremarkable. Gallbladder and bile ducts: Cholecystectomy. No ductal dilation. Pancreas: Unremarkable. No ductal dilation. Spleen: Not visualized. Adrenals: Mild stranding about LEFT adrenal gland, nonspecific. Kidneys and ureters: Minimal stranding about kidneys, nonspecific. Lobulated kidneys. No renal calculi. No hydronephrosis. Stomach and bowel: Segmental areas of mild mural thickening vs underdistention of LEFT colon. No associated inflammatory stranding. No obstruction. Appendix: Normal caliber. No inflammation. PELVIS: Bladder: Unremarkable. No stones. Reproductive: Small ovarian cysts/follicles. ABDOMEN and PELVIS: Intraperitoneal space: No significant fluid collection. No free air. Bones/joints: Few healing rib fractures. Healing RIGHT pubic rami fractures. Mild scoliosis. Soft tissues: Unremarkable. Vasculature: Minimal atherosclerotic disease. No aneurysm. Lymph nodes: Several subcentimeter short axis lymph nodes within retroperitoneum. IMPRESSION: 1. Mild colitis vs underdistention. Favor underdistention. Clinical correlation is needed. 2. Mild stranding about LEFT adrenal gland, nonspecific. Clinical correlation is needed. 3. Incidental/non-acute findings are described above. Dictated By: Cash Velasco MD Dictated Date/Time: 03/30/17316 Signed By: Cash Velasco MD Date Signed: [id number] Transcribed By: AZEEM Transcribe Date/Time : 03/30/17316 ACYP02/SANDRA Assessment & Plan (1) Acute kidney injury Status: Acute Priority: High (2) Leukocytosis Status: Acute (3) Lupus nephritis Status: Acute (4) Vomiting and diarrhea Status: Acute (5) SIRS (systemic inflammatory response syndrome) Status: Acute - Assessment and Plan (Free Text) Assessment: A/P- 37 year old female with multiple medical conditions icnlduding HTN SLE, SLE nephritis, and h/o splenectomy and past sinus infectiosn admitted with c/o N/V and diarrhea. found to be in acute renal failure most likely secondary to dehydration from diarrhe and vomiting. also found to have leukocytosis with left shift. source of leukocytosis unclear at this time. However in light of recent h/o oral abx for sinusiits and diarrhe and high wbc count C.Diff colitis needs to be ruled out. In addition in light of AMS and high wbc meningitis/encephalitis needs to be ruled out if no contraindication to LP. cxr no mention of any infiltrates. advise to also check UA and urine cx. 1.leukocytosis 2.AMS 3.Acute renal insufficiency 4.SLE and SLE nephritis 5.dehydration 6.diarrhea 7.nausea/vomiting PLan- check blood cx x 2 check UA and urine cx. check stool culture and stool C.Diff and stool O and P. check procalcitonin level. in light of finsings of b/l sinusitis and mastoid opacification certainly would need to cover for gram neg and gram pos for this ( renal dose). also would need to cover for encapsulated organisms since pt. is s/p splenectomy. as per pt's mother pcna dn cephalosporins rash only reaction , unknown if any allergy to carbapenems but cross reactivity low ith carbapenems and sicne pt. is already intubated and needs broad spectrum gram neg coverage advise to start meropenem (renal dose). advise to also start pt. on flagyl via NGT since she is intubated to cover empirically for c.diff. advise if LP can be done to sent CSF for garm stain and culture and HSV PCR and AFB and fungal culture and TRAVIS virus PCR and for lyme as well. advise to start pt. on linezolid for gram pos coverage since linezolid is not renally cleared and hence better choice in light of renal insufficiency pending further results. advise Neuro evaluation . advise IV hydration by ICU and primary team. Renal evaluation. All labs, imaging reviewed. Thank you for allowing me to take part in the care of this patient. ICU time 120 minutes.
[2017-03-30] MEDS ORDERED: Propofol 10 mg/ml 1,000 MG/100 ML VIAL IV SCH (14:11)
[2017-03-30] MEDS ORDERED: Propofol 10 mg/ml 1,000 MG/100 ML VIAL ONE (14:11)
--- NOTE | 2017-03-30 15:15 | PCM.ANES ---
Anesthesia Emergent Intubation - Diagnosis Working Diagnosis:: respieatory distress - Consult Reason for Consult:: intubation - Pre-Intubation Vital Signs Blood Pressure: 104/67 Heart Rate: 158 Respiratory Rate: 20 O2 Sat: 94 FIO2: 35 Oxygen Delivery Method: Nasal Cannula Level Of Consciousness: Combative Intubation Meds Given: Propofol - Airway Management Oropharyngeal Area Suctioned: Yes PreOxygenation: 5 - Method of Intubation ETT Size: 7 mm Lipline@: 20 Easy: Yes Atramatic: Yes - Intubation Devices Francisco J Blade Size Used: 4 - Placement Confirmation Breath Sounds Present & Equal Bilaterally: Yes (b/l) Recommendations: Chest X Ray - Post-Intubation Vital Signs Blood Pressure: 105/71 Heart Rate: 150 Respiratory Rate: 14 O2 Sat: 94 FIO2: 100
[2017-03-30 15:22] LABS: BASO # 0.2 K/uL (0.0-0.2); BASO % 0.5 % (0.0-2.0); EOS # 0.3 K/uL (0.0-0.7); EOS % 0.6 % (0.0-4.0); HEMATOCRIT 34.8 % (34.0-47.0); LYMPH # 0.5 K/uL (1.0-4.3); LYMPH % 0.9 % (20.0-40.0); MEAN CELL VOLUME 87.4 fl (81.0-99.0); MEAN CORPUSCULAR HGB CONC 30.9 g/dL (33.0-37.0); MEAN PLATELET VOLUME 10.3 fl (7.2-11.7); MONO % 16.3 % (0.0-10.0); NEUT # 40.1 K/uL (1.8-7.0); NEUT % 81.7 % (50.0-75.0); NRBC % 0.1 % (0.0-0.0); RED CELL DISTRIBUTION WIDTH 17.5 % (11.5-14.5)
[2017-03-30 15:37] LABS: WHITE BLOOD COUNT 49.1 K/uL (4.8-10.8)
[2017-03-30 15:44] LABS: BLOOD UREA NITROGEN 57 mg/dl (7-17); CHLORIDE 113 mmol/L (98-107); GFR AFRICAN-AMERICAN 13; GLUCOSE,RANDOM 163 mg/dL (65-105); POTASSIUM 5.7 MMOL/L (3.6-5.0); SODIUM 139 mmol/l (132-148)
[2017-03-30 15:45] LABS: CALCIUM 6.2 mg/dL (8.4-10.2); CARBON DIOXIDE 10 mmol/L (22-30); PHOSPHOROUS 8.7 mg/dl (2.5-4.5)
[2017-03-30 15:46] LABS: ALB/GLOB RATIO 0.8 (1.0-2.1); ALCOHOL SERUM < 10 mg/dl (0-10); ALKALINE PHOSPHATASE 91 U/L (38-126); ALT/SGPT 60 U/L (9-52); AST/SGOT 114 U/L (14-36); BILIRUBIN,TOTAL 0.2 mg/dl (0.2-1.3); MAGNESIUM 1.9 MG/DL (1.6-2.3); TOTAL PROTEIN 6.1 G/DL (6.3-8.2)
[2017-03-30] MEDS ORDERED: MethylPREDNISolone 40 mg Vial IVP SCH (16:00)
[2017-03-30 16:14] LABS: ABG ALLEN TEST YES; ABG MECHANICAL RATE 14; ARTERIAL BLOOD GAS HCO3 8.3 mmol/L (21-28); ARTERIAL BLOOD GAS O2 CAPACITY 14.4 mL/dL (16-24); ARTERIAL BLOOD GAS O2 CONTENT 14.4 ML/dL (15-23); ARTERIAL BLOOD GAS PH 7.01 (7.35-7.45); ARTERIAL BLOOD GAS PO2 207 mm/Hg (80-100); ARTERIAL BLOOD HGB O2 SAT 95.8 % (95.0-98.0); ATERIAL BLOOD GAS PEEP 5; CARBOXYHEMOGLOBIN 1.4 % (0.5-1.5); HHB 0.2 % (0.0-5.0); METHEMOGLOBIN 2.5 % (0.0-3.0)
--- NOTE | 2017-03-30 16:23 | RAD ---
HISTORY: Post-Intubation COMPARISON: Comparison made with prior study 03/30/2017 at 1:41 a.m.. FINDINGS: LUNGS: In situ endotracheal tube, the tip of which appears to lie in the proximal right mainstem bronchus and as a result there is fairly significant atelectatic changes in the left mid to lower lung zone. Note that these findings were discussed with Dr. Durand of the Intensive Care Unit at approximately 4 18 p.m. with written down and read back verification. PLEURA: No significant pleural effusion identified, no pneumothorax apparent. CARDIOVASCULAR: Normal. OSSEOUS STRUCTURES: No significant abnormalities. VISUALIZED UPPER ABDOMEN: Re- demonstrated is a somewhat elliptical shaped radiopaque density in the left upper quadrant of the abdomen of uncertain etiology. OTHER FINDINGS: None. IMPRESSION: In situ ETT, tip of which lies in the right mainstem bronchus and as a result there has been apparent atelectasis in the left mid to lower lung field
[2017-03-30] MEDS ORDERED: Sodium Bicarbonate 7.5% (0.9 MEQ/ML) 50ML INJ IV ONE (16:31)
[2017-03-30] MEDS ORDERED: Sodium Bicarbonate 8.4% 50 MEQ in Dextrose 5% In Water 1,000 ML IV SCH (16:45)
--- NOTE | 2017-03-30 16:50 | CP.PCM.CON ---
History of Present Illness - History of Present Illness History of Present Illness: Ms. Bar is a 37-year-old woman with a past medical history of SLE, lupus nephritis (Cellcept), previous encephalitis, ischemic stroke, hypertension, who presented to the ED after a few days of nausea, vomiting, fever and lethargy. She had a sinus infection last week and was started on zithromax. According to the history, the patient first developed the episode of encephalitis after a sinusitis and was admitted to the hospital in [facility] after coming off of the airplane. The history of the CVA is unclear, but she does have residual left sided weakness and contractures. The patient was intubated about one hour ago for airway protection and due to agitation after she progressed with encephalopathy and altered mental status. She is currently intubated and sedated. Exam was limited. Review of Systems - Review of Systems Systems not reviewed;Unavailable: Altered Mental Status, Intubated Past Patient History - Past Medical History & Family History Past Medical History?: Yes - Past Social History Smoking Status: Never Smoked Home Situation {Lives}: With Family - CARDIAC Hx Hypertension: Yes - PULMONARY Hx Respiratory Disorders: No - NEUROLOGICAL Hx Meningitis: Yes Hx Migraine: Yes - HEENT Hx HEENT Problems: No - RENAL Hx Chronic Kidney Disease: Yes (LUPUS NEPHRITIS) - ENDOCRINE/METABOLIC Hx Endocrine Disorders: (Lupus) Hx Systemic Lupus Erythematosus: Yes - HEMATOLOGICAL/ONCOLOGICAL Hx Blood Transfusions: Yes Hx Blood Transfusion Reaction: No Other/Comment: pt has hx of lupus - INTEGUMENTARY Hx Dermatological Problems: Yes (LUPUS SUN RASH) - MUSCULOSKELETAL/RHEUMATOLOGICAL Hx Falls: No Hx Fractures: Yes (METARSAL LEFT FOOT/STRESS FX. /RT WRIST) - GASTROINTESTINAL Hx Gastrointestinal Disorders: No - GENITOURINARY/GYNECOLOGICAL Hx Genitourinary Disorders: Yes (LUPUS NEPHRITIS) - PSYCHIATRIC Hx Psychophysiologic Disorder: Yes Hx Depression: Yes Hx Substance Use: No - SURGICAL HISTORY Hx Cholecystectomy: Yes - ANESTHESIA Hx Anesthesia: Yes Hx Anesthesia Reactions: No Meds Allergies/Adverse Reactions: Allergies Allergy/AdvReac Type Severity Reaction Status Date / Time latex Allergy RASH Verified 03/29/17 22:10 Penicillins Allergy RASH Verified 03/29/17 22:10 Quinolones Allergy ANAPHYLAXIS Verified 03/29/17 22:10 - Medications Medications: Current Medications Heparin Sodium (Porcine) (Heparin) 5,000 units SC Q12 HECTOR PRN Reason: Protocol Sodium Chloride (Sodium Chloride 0.9%) 1,000 mls @ 125 mls/hr IV .Q8H [facility] Stop: 03/31/17 04:09 Last Admin: 03/30/17 04:27 Dose: 125 mls/hr Metronidazole (Flagyl 500mg/100ml Ns) 100 mls @ 100 mls/hr IVPB Q8 HECTOR PRN Reason: Protocol Meropenem 500 mg/ Sodium (Chloride) 50 mls @ 50 mls/hr IVPB Q8 HECTOR PRN Reason: Protocol Linezolid (Zyvox 600mg/300ml D5w) 600 mg in 300 mls @ 300 mls/hr IVPB Q12 HECTOR PRN Reason: Protocol Sodium Bicarbonate 50 meq/ (Dextrose) 1,050 mls @ 125 mls/hr IV .Q8H24M [facility] Stop: 03/31/17 17:56 Methylprednisolone (Solu-Medrol) 40 mg IVP Q6 [facility] Morphine Sulfate (Morphine) 2 mg IVP Q6 PRN PRN Reason: Pain, moderate (4-7) Mycophenolate Mofetil (Cellcept Cap) 500 mg PO BID [facility] Ondansetron HCl (Zofran Inj) 4 mg IVP Q6 PRN PRN Reason: Nausea/Vomiting Pantoprazole Sodium (Protonix Inj) 40 mg IVP DAILY [facility] Sodium Bicarbonate (Sodium Bicarbonate 8.4% (1meq/Ml) 10ml Peds) 50 meq IV ONCE ONE Stop: 03/30/17 16:32 Physical Exam - Constitutional Appears: Toxic - Head Exam Head Exam: ATRAUMATIC, NORMAL INSPECTION, NORMOCEPHALIC - Eye Exam Eye Exam: Periorbital swelling Pupil Exam: Miosis - ENT Exam Additional comments: Intubated, diaphoretic. - Neck Exam Neck exam: Positive for: Normal Inspection - Respiratory Exam Respiratory Exam: Respiratory Distress - Cardiovascular Exam Cardiovascular Exam: Tachycardia - GI/Abdominal Exam GI & Abdominal Exam: Normal Bowel Sounds, Soft. absent: Tenderness - Rectal Exam Rectal Exam: Deferred - Neurological Exam Additional comments: Intubated, sedated. Pupils are sluggishly reactive and about 2-3 mm. VOR present. Cough/Gag present. NO response to painful stimulus on propofol at 35 mcg/kg/min. Results - Vital Signs Recent Vital Signs: Last Vital Signs Temp 99.3 F 03/30/17 16:00 Pulse 148 H 03/30/17 16:00 Resp 20 03/30/17 15:15 BP 134/89 03/30/17 16:00 Pulse Ox 100 03/30/17 16:00 - Labs Result Diagrams: 03/30/17 15:00 03/30/17 15:00 Labs: Laboratory Results - last 24 hr 03/29/17 03/30/17 03/30/17 23:59 00:55 01:00 WBC 40.4 H* RBC 3.87 Hgb 10.3 L Hct 33.2 L MCV 85.8 MCH 26.7 L MCHC 31.2 L RDW 16.5 H Plt Count 239 MPV 9.7 Neut % (Auto) 96.1 H Lymph % (Auto) 0.7 L [place] % (Auto) 3.0 Eos % (Auto) 0.0 Baso % (Auto) 0.2 Neut # 38.8 H Lymph # 0.3 L [place] # 1.2 H Eos # 0.0 Baso # 0.1 Neutrophils % (Manual) 78 H Band Neutrophils % 8 H Lymphocytes % (Manual) 1 L Monocytes % (Manual) 1 Metamyelocytes % 8 H Myelocytes % 4 H Platelet Estimate Normal Hypochromasia (manual) Slight Anisocytosis (manual) Slight Target Cells Slight Ovalocytes Slight Acanthocytes (Spur) Slight ESR pCO2 pO2 HCO3 ABG pH ABG Total CO2 ABG O2 Saturation ABG O2 Content ABG Base Excess ABG Hemoglobin ABG Carboxyhemoglobin POC ABG HHb (Measured) ABG Methemoglobin ABG O2 Capacity Chauncey Test A-a O2 Difference Hgb O2 Saturation Mechanical Rate FiO2 Tidal Volume PEEP Crit Value Called To Crit Value Called By Crit Value Read Back Blood Gas Notified Time Sodium 136 Potassium 5.1 H Chloride 115 H Carbon Dioxide 10 L* D Anion Gap 16 BUN 52 H Creatinine 4.2 H Est GFR ( Amer) 14 Est GFR (Non-Af Amer) 12 POC Glucose (mg/dL) Random Glucose 95 Lactic Acid 1.3 Calcium 6.2 L Phosphorus 6.2 H Magnesium 0.9 L* Total Bilirubin 0.1 L AST 79 H ALT 48 Alkaline Phosphatase 53 Ammonia Lactate Dehydrogenase Total Creatine Kinase Total Protein 5.4 L Albumin 2.4 L Globulin 3.0 Albumin/Globulin Ratio 0.8 L Lipase 141 Urine Opiates Screen Urine Methadone Screen Acetaminophen Ur Barbiturates Screen Ur Phencyclidine Scrn Ur Amphetamines Screen U Benzodiazepines Scrn U Oth Cocaine Metabols U Cannabinoids Screen Alcohol, Quantitative Influenza Typ A,B (EIA) 03/30/17 03/30/17 03/30/17 02:13 02:31 03:41 WBC RBC Hgb Hct MCV MCH MCHC RDW Plt Count MPV Neut % (Auto) Lymph % (Auto) [place] % (Auto) Eos % (Auto) Baso % (Auto) Neut # Lymph # [place] # Eos # Baso # Neutrophils % (Manual) Band Neutrophils % Lymphocytes % (Manual) Monocytes % (Manual) Metamyelocytes % Myelocytes % Platelet Estimate Hypochromasia (manual) Anisocytosis (manual) Target Cells Ovalocytes Acanthocytes (Spur) ESR pCO2 pO2 HCO3 ABG pH ABG Total CO2 ABG O2 Saturation ABG O2 Content ABG Base Excess ABG Hemoglobin ABG Carboxyhemoglobin POC ABG HHb (Measured) ABG Methemoglobin ABG O2 Capacity Chauncey Test A-a O2 Difference Hgb O2 Saturation Mechanical Rate FiO2 Tidal Volume PEEP Crit Value Called To Crit Value Called By Crit Value Read Back Blood Gas Notified Time Sodium Potassium Chloride Carbon Dioxide Anion Gap BUN Creatinine Est GFR ( Amer) Est GFR (Non-Af Amer) POC Glucose (mg/dL) 72 281 H Random Glucose Lactic Acid Calcium Phosphorus Magnesium Total Bilirubin AST ALT Alkaline Phosphatase Ammonia Lactate Dehydrogenase Total Creatine Kinase Total Protein Albumin Globulin Albumin/Globulin Ratio Lipase Urine Opiates Screen Urine Methadone Screen Acetaminophen Ur Barbiturates Screen Ur Phencyclidine Scrn Ur Amphetamines Screen U Benzodiazepines Scrn U Oth Cocaine Metabols U Cannabinoids Screen Alcohol, Quantitative Influenza Typ A,B (EIA) Negative for flu a/b 03/30/17 03/30/17 03/30/17 03:44 15:00 15:00 WBC 49.1 H* RBC 3.98 Hgb 10.8 L Hct 34.8 MCV 87.4 MCH 27.0 MCHC 30.9 L RDW 17.5 H Plt Count 200 MPV 10.3 Neut % (Auto) 81.7 H Lymph % (Auto) 0.9 L [place] % (Auto) 16.3 H Eos % (Auto) 0.6 Baso % (Auto) 0.5 Neut # 40.1 H Lymph # 0.5 L [place] # 8.0 H Eos # 0.3 Baso # 0.2 Neutrophils % (Manual) Band Neutrophils % Lymphocytes % (Manual) Monocytes % (Manual) Metamyelocytes % Myelocytes % Platelet Estimate Hypochromasia (manual) Anisocytosis (manual) Target Cells Ovalocytes Acanthocytes (Spur) ESR 41 H pCO2 pO2 HCO3 ABG pH ABG Total CO2 ABG O2 Saturation ABG O2 Content ABG Base Excess ABG Hemoglobin ABG Carboxyhemoglobin POC ABG HHb (Measured) ABG Methemoglobin ABG O2 Capacity Chauncey Test A-a O2 Difference Hgb O2 Saturation Mechanical Rate FiO2 Tidal Volume PEEP Crit Value Called To Crit Value Called By Crit Value Read Back Blood Gas Notified Time Sodium 139 Potassium 5.7 H Chloride 113 H Carbon Dioxide 10 L* Anion Gap 22 H BUN 57 H Creatinine 4.6 H Est GFR ( Amer) 13 Est GFR (Non-Af Amer) 11 POC Glucose (mg/dL) Random Glucose 163 H Lactic Acid Calcium 6.2 L Phosphorus 8.7 H Magnesium 1.9 Total Bilirubin 0.2 AST 114 H D ALT 60 H D Alkaline Phosphatase 91 Ammonia Lactate Dehydrogenase 1567 H Total Creatine Kinase 64 156 H Total Protein 6.1 L Albumin 2.7 L Globulin 3.4 Albumin/Globulin Ratio 0.8 L Lipase Urine Opiates Screen Urine Methadone Screen Acetaminophen Ur Barbiturates Screen Ur Phencyclidine Scrn Ur Amphetamines Screen U Benzodiazepines Scrn U Oth Cocaine Metabols U Cannabinoids Screen Alcohol, Quantitative < 10 Influenza Typ A,B (EIA) 03/30/17 03/30/17 03/30/17 15:00 15:00 15:00 WBC RBC Hgb Hct MCV MCH MCHC RDW Plt Count MPV Neut % (Auto) Lymph % (Auto) [place] % (Auto) Eos % (Auto) Baso % (Auto) Neut # Lymph # [place] # Eos # Baso # Neutrophils % (Manual) Band Neutrophils % Lymphocytes % (Manual) Monocytes % (Manual) Metamyelocytes % Myelocytes % Platelet Estimate Hypochromasia (manual) Anisocytosis (manual) Target Cells Ovalocytes Acanthocytes (Spur) ESR pCO2 pO2 HCO3 ABG pH ABG Total CO2 ABG O2 Saturation ABG O2 Content ABG Base Excess ABG Hemoglobin ABG Carboxyhemoglobin POC ABG HHb (Measured) ABG Methemoglobin ABG O2 Capacity Chauncey Test A-a O2 Difference Hgb O2 Saturation Mechanical Rate FiO2 Tidal Volume PEEP Crit Value Called To Crit Value Called By Crit Value Read Back Blood Gas Notified Time Sodium Potassium Chloride Carbon Dioxide Anion Gap BUN Creatinine Est GFR ( Amer) Est GFR (Non-Af Amer) POC Glucose (mg/dL) Random Glucose Lactic Acid 3.9 H Calcium Phosphorus Magnesium Total Bilirubin AST ALT Alkaline Phosphatase Ammonia 33 Lactate Dehydrogenase Total Creatine Kinase Total Protein Albumin Globulin Albumin/Globulin Ratio Lipase Urine Opiates Screen Urine Methadone Screen Acetaminophen < 10.0 L Ur Barbiturates Screen Ur Phencyclidine Scrn Ur Amphetamines Screen U Benzodiazepines Scrn U Oth Cocaine Metabols U Cannabinoids Screen Alcohol, Quantitative Influenza Typ A,B (EIA) 03/30/17 03/30/17 15:06 16:00 WBC RBC Hgb Hct MCV MCH MCHC RDW Plt Count MPV Neut % (Auto) Lymph % (Auto) [place] % (Auto) Eos % (Auto) Baso % (Auto) Neut # Lymph # [place] # Eos # Baso # Neutrophils % (Manual) Band Neutrophils % Lymphocytes % (Manual) Monocytes % (Manual) Metamyelocytes % Myelocytes % Platelet Estimate Hypochromasia (manual) Anisocytosis (manual) Target Cells Ovalocytes Acanthocytes (Spur) ESR pCO2 34 L pO2 207 H HCO3 8.3 L* ABG pH 7.01 L* ABG Total CO2 9.6 L ABG O2 Saturation 99.8 H ABG O2 Content 14.4 L ABG Base Excess -21.3 L ABG Hemoglobin 10.3 L ABG Carboxyhemoglobin 1.4 POC ABG HHb (Measured) 0.2 ABG Methemoglobin 2.5 ABG O2 Capacity 14.4 L Chauncey Test Yes A-a O2 Difference 464.0 Hgb O2 Saturation 95.8 Mechanical Rate 14 FiO2 100.0 Tidal Volume 450 PEEP 5 Crit Value Called To Dr cynthia chaves Crit Value Called By Marty Crit Value Read Back Y Blood Gas Notified Time 1614 Sodium Potassium Chloride Carbon Dioxide Anion Gap BUN Creatinine Est GFR ( Amer) Est GFR (Non-Af Amer) POC Glucose (mg/dL) Random Glucose Lactic Acid Calcium Phosphorus Magnesium Total Bilirubin AST ALT Alkaline Phosphatase Ammonia Lactate Dehydrogenase Total Creatine Kinase Total Protein Albumin Globulin Albumin/Globulin Ratio Lipase Urine Opiates Screen Positive H Urine Methadone Screen Negative Acetaminophen Ur Barbiturates Screen Negative Ur Phencyclidine Scrn Negative Ur Amphetamines Screen Negative U Benzodiazepines Scrn Negative U Oth Cocaine Metabols Negative U Cannabinoids Screen Negative Alcohol, Quantitative Influenza Typ A,B (EIA) Assessment & Plan (1) Acute encephalopathy Assessment and Plan: The differential in this case is broad, but can be limited to encephalitis, lupus cerebritis, non-convulsive status epilepticus, or PRES. I recommend empirical treatment for encephalitis and obtain an LP for CSF analysis per ID. An MRI of the brain and MRA of the head/neck without contrast is needed. Continue steroids for now at current dose and will decide on further management after MRI is done. An EEG is also needed and will be done tomorrow. Continue management of underlying GAYE with fluids per nephrology. Thank you. Status: Acute Priority: High
--- NOTE | 2017-03-30 16:57 | CP.PCM.CON ---
<Linus Olguin - Last Filed: 03/30/17 16:58> History of Present Illness - History of Present Illness History of Present Illness: General Surgery Consult Note for Kal Castañeda This is a 37F with a PMH of SLE who presented to the ED due to weakness. She becamed altered, subsequently she had a CTH which was questionable for an infarct. She was then transferred to the ICU. In the ICU they were unable to attain venous access and consulted mauricio for a central line placement. PMH: SLE, ITP, Stroke, HTN, Meningitis PSH: Splenectomy, Cholecystectomy Review of Systems - Review of Systems Systems not reviewed;Unavailable: Acuity of Condition Past Patient History - Past Medical History & Family History Past Medical History?: Yes - Past Social History Smoking Status: Never Smoked Home Situation {Lives}: With Family - CARDIAC Hx Hypertension: Yes - PULMONARY Hx Respiratory Disorders: No - NEUROLOGICAL Hx Meningitis: Yes Hx Migraine: Yes - HEENT Hx HEENT Problems: No - RENAL Hx Chronic Kidney Disease: Yes (LUPUS NEPHRITIS) - ENDOCRINE/METABOLIC Hx Endocrine Disorders: (Lupus) Hx Systemic Lupus Erythematosus: Yes - HEMATOLOGICAL/ONCOLOGICAL Hx Blood Transfusions: Yes Hx Blood Transfusion Reaction: No Other/Comment: pt has hx of lupus - INTEGUMENTARY Hx Dermatological Problems: Yes (LUPUS SUN RASH) - MUSCULOSKELETAL/RHEUMATOLOGICAL Hx Falls: No Hx Fractures: Yes (METARSAL LEFT FOOT/STRESS FX. /RT WRIST) - GASTROINTESTINAL Hx Gastrointestinal Disorders: No - GENITOURINARY/GYNECOLOGICAL Hx Genitourinary Disorders: Yes (LUPUS NEPHRITIS) - PSYCHIATRIC Hx Psychophysiologic Disorder: Yes Hx Depression: Yes Hx Substance Use: No - SURGICAL HISTORY Hx Cholecystectomy: Yes - ANESTHESIA Hx Anesthesia: Yes Hx Anesthesia Reactions: No Meds Allergies/Adverse Reactions: Allergies Allergy/AdvReac Type Severity Reaction Status Date / Time latex Allergy RASH Verified 03/29/17 22:10 Penicillins Allergy RASH Verified 03/29/17 22:10 Quinolones Allergy ANAPHYLAXIS Verified 03/29/17 22:10 - Medications Medications: Current Medications Heparin Sodium (Porcine) (Heparin) 5,000 units SC Q12 [facility] PRN Reason: Protocol Sodium Chloride (Sodium Chloride 0.9%) 1,000 mls @ 125 mls/hr IV .Q8H [facility] Stop: 03/31/17 04:09 Last Admin: 03/30/17 04:27 Dose: 125 mls/hr Metronidazole (Flagyl 500mg/100ml Ns) 100 mls @ 100 mls/hr IVPB Q8 [facility]OR PRN Reason: Protocol Meropenem 500 mg/ Sodium (Chloride) 50 mls @ 50 mls/hr IVPB Q8 [facility]OR PRN Reason: Protocol Linezolid (Zyvox 600mg/300ml D5w) 600 mg in 300 mls @ 300 mls/hr IVPB Q12 [facility] PRN Reason: Protocol Sodium Bicarbonate 50 meq/ (Dextrose) 1,050 mls @ 125 mls/hr IV .Q8H24M [facility] Stop: 03/31/17 17:56 Methylprednisolone (Solu-Medrol) 40 mg IVP Q6 [facility] Morphine Sulfate (Morphine) 2 mg IVP Q6 PRN PRN Reason: Pain, moderate (4-7) Mycophenolate Mofetil (Cellcept Cap) 500 mg PO BID [facility] Ondansetron HCl (Zofran Inj) 4 mg IVP Q6 PRN PRN Reason: Nausea/Vomiting Pantoprazole Sodium (Protonix Inj) 40 mg IVP DAILY [facility] Physical Exam - Constitutional Appears: In Acute Distress - Head Exam Head Exam: NORMOCEPHALIC - Eye Exam Eye Exam: Normal appearance - Respiratory Exam Respiratory Exam: Stridor - Cardiovascular Exam Cardiovascular Exam: Tachycardia, REGULAR RHYTHM - GI/Abdominal Exam GI & Abdominal Exam: Soft. absent: Rebound, Rigid Results - Vital Signs Recent Vital Signs: Last Vital Signs Temp 99.3 F 03/30/17 16:00 Pulse 148 H 03/30/17 16:00 Resp 20 03/30/17 15:15 BP 134/89 03/30/17 16:00 Pulse Ox 100 03/30/17 16:00 - Labs Result Diagrams: 03/30/17 15:00 03/30/17 15:00 Labs: Laboratory Results - last 24 hr 03/29/17 03/30/17 03/30/17 23:59 00:55 01:00 WBC 40.4 H* RBC 3.87 Hgb 10.3 L Hct 33.2 L MCV 85.8 MCH 26.7 L MCHC 31.2 L RDW 16.5 H Plt Count 239 MPV 9.7 Neut % (Auto) 96.1 H Lymph % (Auto) 0.7 L [place] % (Auto) 3.0 Eos % (Auto) 0.0 Baso % (Auto) 0.2 Neut # 38.8 H Lymph # 0.3 L [place] # 1.2 H Eos # 0.0 Baso # 0.1 Neutrophils % (Manual) 78 H Band Neutrophils % 8 H Lymphocytes % (Manual) 1 L Monocytes % (Manual) 1 Metamyelocytes % 8 H Myelocytes % 4 H Platelet Estimate Normal Hypochromasia (manual) Slight Anisocytosis (manual) Slight Target Cells Slight Ovalocytes Slight Acanthocytes (Spur) Slight ESR pCO2 pO2 HCO3 ABG pH ABG Total CO2 ABG O2 Saturation ABG O2 Content ABG Base Excess ABG Hemoglobin ABG Carboxyhemoglobin POC ABG HHb (Measured) ABG Methemoglobin ABG O2 Capacity [place] Test A-a O2 Difference Hgb O2 Saturation Mechanical Rate FiO2 Tidal Volume PEEP Crit Value Called To Crit Value Called By Crit Value Read Back Blood Gas Notified Time Sodium 136 Potassium 5.1 H Chloride 115 H Carbon Dioxide 10 L* D Anion Gap 16 BUN 52 H Creatinine 4.2 H Est GFR ( Amer) 14 Est GFR (Non-Af Amer) 12 POC Glucose (mg/dL) Random Glucose 95 Lactic Acid 1.3 Calcium 6.2 L Phosphorus 6.2 H Magnesium 0.9 L* Total Bilirubin 0.1 L AST 79 H ALT 48 Alkaline Phosphatase 53 Ammonia Lactate Dehydrogenase Total Creatine Kinase Total Protein 5.4 L Albumin 2.4 L Globulin 3.0 Albumin/Globulin Ratio 0.8 L Lipase 141 Urine Opiates Screen Urine Methadone Screen Acetaminophen Ur Barbiturates Screen Ur Phencyclidine Scrn Ur Amphetamines Screen U Benzodiazepines Scrn U Oth Cocaine Metabols U Cannabinoids Screen Alcohol, Quantitative Influenza Typ A,B (EIA) 03/30/17 03/30/17 03/30/17 02:13 02:31 03:41 WBC RBC Hgb Hct MCV MCH MCHC RDW Plt Count MPV Neut % (Auto) Lymph % (Auto) [place] % (Auto) Eos % (Auto) Baso % (Auto) Neut # Lymph # [place] # Eos # Baso # Neutrophils % (Manual) Band Neutrophils % Lymphocytes % (Manual) Monocytes % (Manual) Metamyelocytes % Myelocytes % Platelet Estimate Hypochromasia (manual) Anisocytosis (manual) Target Cells Ovalocytes Acanthocytes (Spur) ESR pCO2 pO2 HCO3 ABG pH ABG Total CO2 ABG O2 Saturation ABG O2 Content ABG Base Excess ABG Hemoglobin ABG Carboxyhemoglobin POC ABG HHb (Measured) ABG Methemoglobin ABG O2 Capacity [place] Test A-a O2 Difference Hgb O2 Saturation Mechanical Rate FiO2 Tidal Volume PEEP Crit Value Called To Crit Value Called By Crit Value Read Back Blood Gas Notified Time Sodium Potassium Chloride Carbon Dioxide Anion Gap BUN Creatinine Est GFR ( Amer) Est GFR (Non-Af Amer) POC Glucose (mg/dL) 72 281 H Random Glucose Lactic Acid Calcium Phosphorus Magnesium Total Bilirubin AST ALT Alkaline Phosphatase Ammonia Lactate Dehydrogenase Total Creatine Kinase Total Protein Albumin Globulin Albumin/Globulin Ratio Lipase Urine Opiates Screen Urine Methadone Screen Acetaminophen Ur Barbiturates Screen Ur Phencyclidine Scrn Ur Amphetamines Screen U Benzodiazepines Scrn U Oth Cocaine Metabols U Cannabinoids Screen Alcohol, Quantitative Influenza Typ A,B (EIA) Negative for flu a/b 03/30/17 03/30/17 03/30/17 03:44 15:00 15:00 WBC 49.1 H* RBC 3.98 Hgb 10.8 L Hct 34.8 MCV 87.4 MCH 27.0 MCHC 30.9 L RDW 17.5 H Plt Count 200 MPV 10.3 Neut % (Auto) 81.7 H Lymph % (Auto) 0.9 L [place] % (Auto) 16.3 H Eos % (Auto) 0.6 Baso % (Auto) 0.5 Neut # 40.1 H Lymph # 0.5 L [place] # 8.0 H Eos # 0.3 Baso # 0.2 Neutrophils % (Manual) Band Neutrophils % Lymphocytes % (Manual) Monocytes % (Manual) Metamyelocytes % Myelocytes % Platelet Estimate Hypochromasia (manual) Anisocytosis (manual) Target Cells Ovalocytes Acanthocytes (Spur) ESR 41 H pCO2 pO2 HCO3 ABG pH ABG Total CO2 ABG O2 Saturation ABG O2 Content ABG Base Excess ABG Hemoglobin ABG Carboxyhemoglobin POC ABG HHb (Measured) ABG Methemoglobin ABG O2 Capacity [place] Test A-a O2 Difference Hgb O2 Saturation Mechanical Rate FiO2 Tidal Volume PEEP Crit Value Called To Crit Value Called By Crit Value Read Back Blood Gas Notified Time Sodium 139 Potassium 5.7 H Chloride 113 H Carbon Dioxide 10 L* Anion Gap 22 H BUN 57 H Creatinine 4.6 H Est GFR ( Amer) 13 Est GFR (Non-Af Amer) 11 POC Glucose (mg/dL) Random Glucose 163 H Lactic Acid Calcium 6.2 L Phosphorus 8.7 H Magnesium 1.9 Total Bilirubin 0.2 AST 114 H D ALT 60 H D Alkaline Phosphatase 91 Ammonia Lactate Dehydrogenase 1567 H Total Creatine Kinase 64 156 H Total Protein 6.1 L Albumin 2.7 L Globulin 3.4 Albumin/Globulin Ratio 0.8 L Lipase Urine Opiates Screen Urine Methadone Screen Acetaminophen Ur Barbiturates Screen Ur Phencyclidine Scrn Ur Amphetamines Screen U Benzodiazepines Scrn U Oth Cocaine Metabols U Cannabinoids Screen Alcohol, Quantitative < 10 Influenza Typ A,B (EIA) 03/30/17 03/30/17 03/30/17 15:00 15:00 15:00 WBC RBC Hgb Hct MCV MCH MCHC RDW Plt Count MPV Neut % (Auto) Lymph % (Auto) [place] % (Auto) Eos % (Auto) Baso % (Auto) Neut # Lymph # [place] # Eos # Baso # Neutrophils % (Manual) Band Neutrophils % Lymphocytes % (Manual) Monocytes % (Manual) Metamyelocytes % Myelocytes % Platelet Estimate Hypochromasia (manual) Anisocytosis (manual) Target Cells Ovalocytes Acanthocytes (Spur) ESR pCO2 pO2 HCO3 ABG pH ABG Total CO2 ABG O2 Saturation ABG O2 Content ABG Base Excess ABG Hemoglobin ABG Carboxyhemoglobin POC ABG HHb (Measured) ABG Methemoglobin ABG O2 Capacity [place] Test A-a O2 Difference Hgb O2 Saturation Mechanical Rate FiO2 Tidal Volume PEEP Crit Value Called To Crit Value Called By Crit Value Read Back Blood Gas Notified Time Sodium Potassium Chloride Carbon Dioxide Anion Gap BUN Creatinine Est GFR ( Amer) Est GFR (Non-Af Amer) POC Glucose (mg/dL) Random Glucose Lactic Acid 3.9 H Calcium Phosphorus Magnesium Total Bilirubin AST ALT Alkaline Phosphatase Ammonia 33 Lactate Dehydrogenase Total Creatine Kinase Total Protein Albumin Globulin Albumin/Globulin Ratio Lipase Urine Opiates Screen Urine Methadone Screen Acetaminophen < 10.0 L Ur Barbiturates Screen Ur Phencyclidine Scrn Ur Amphetamines Screen U Benzodiazepines Scrn U Oth Cocaine Metabols U Cannabinoids Screen Alcohol, Quantitative Influenza Typ A,B (EIA) 03/30/17 03/30/17 15:06 16:00 WBC RBC Hgb Hct MCV MCH MCHC RDW Plt Count MPV Neut % (Auto) Lymph % (Auto) [place] % (Auto) Eos % (Auto) Baso % (Auto) Neut # Lymph # [place] # Eos # Baso # Neutrophils % (Manual) Band Neutrophils % Lymphocytes % (Manual) Monocytes % (Manual) Metamyelocytes % Myelocytes % Platelet Estimate Hypochromasia (manual) Anisocytosis (manual) Target Cells Ovalocytes Acanthocytes (Spur) ESR pCO2 34 L pO2 207 H HCO3 8.3 L* ABG pH 7.01 L* ABG Total CO2 9.6 L ABG O2 Saturation 99.8 H ABG O2 Content 14.4 L ABG Base Excess -21.3 L ABG Hemoglobin 10.3 L ABG Carboxyhemoglobin 1.4 POC ABG HHb (Measured) 0.2 ABG Methemoglobin 2.5 ABG O2 Capacity 14.4 L [place] Test Yes A-a O2 Difference 464.0 Hgb O2 Saturation 95.8 Mechanical Rate 14 FiO2 100.0 Tidal Volume 450 PEEP 5 Crit Value Called To Dr cynthia chaves Crit Value Called By Marty Crit Value Read Back Y Blood Gas Notified Time 1614 Sodium Potassium Chloride Carbon Dioxide Anion Gap BUN Creatinine Est GFR ( Amer) Est GFR (Non-Af Amer) POC Glucose (mg/dL) Random Glucose Lactic Acid Calcium Phosphorus Magnesium Total Bilirubin AST ALT Alkaline Phosphatase Ammonia Lactate Dehydrogenase Total Creatine Kinase Total Protein Albumin Globulin Albumin/Globulin Ratio Lipase Urine Opiates Screen Positive H Urine Methadone Screen Negative Acetaminophen Ur Barbiturates Screen Negative Ur Phencyclidine Scrn Negative Ur Amphetamines Screen Negative U Benzodiazepines Scrn Negative U Oth Cocaine Metabols Negative U Cannabinoids Screen Negative Alcohol, Quantitative Influenza Typ A,B (EIA) Assessment & Plan - Assessment and Plan (Free Text) Assessment: 37F with AMS in need of vascular access Plan: Ultrasound guided placement of central venous triple lumen catheter. <Cr Bowden - Last Filed: 03/30/17 22:21> Meds - Medications Medications: Current Medications Aspirin (Aspirin) 325 mg NG DAILY [facility] Clopidogrel Bisulfate (Plavix) 75 mg PO DAILY [facility] Dexamethasone (Decadron Inj) 10 mg IV Q12H [facility] Last Admin: 03/30/17 22:15 Dose: 10 mg Heparin Sodium (Porcine) (Heparin) 5,000 units SC Q12 [facility] PRN Reason: Protocol Last Admin: 03/30/17 20:54 Dose: 5,000 units Sodium Chloride (Sodium Chloride 0.9%) 1,000 mls @ 125 mls/hr IV .Q8H [facility] Stop: 03/31/17 04:09 Last Admin: 03/30/17 17:06 Dose: 125 mls/hr Metronidazole (Flagyl 500mg/100ml Ns) 100 mls @ 100 mls/hr IVPB Q8 [facility] PRN Reason: Protocol Last Admin: 03/30/17 17:08 Dose: 100 mls/hr Meropenem 500 mg/ Sodium (Chloride) 50 mls @ 50 mls/hr IVPB Q8 [facility] PRN Reason: Protocol Last Admin: 03/30/17 17:05 Dose: 50 mls/hr Linezolid (Zyvox 600mg/300ml D5w) 600 mg in 300 mls @ 300 mls/hr IVPB Q12 [facility] PRN Reason: Protocol Last Admin: 03/30/17 20:55 Dose: 300 mls/hr Sodium Bicarbonate 50 meq/ (Dextrose) 1,050 mls @ 125 mls/hr IV .Q8H24M [facility] Stop: 03/31/17 17:56 Propofol (Diprivan) 1,000 mg in 100 mls @ 1.905 mls/hr IV .Q24H [facility]; 5 MCG/KG/ MIN PRN Reason: Protocol Stop: 03/31/17 17:21 Last Admin: 03/30/17 14:10 Dose: 5 mcg/kg/min, 1.905 mls/hr Morphine Sulfate (Morphine) 2 mg IVP Q6 PRN PRN Reason: Pain, moderate (4-7) Mycophenolate Mofetil (Cellcept Cap) 500 mg PO BID [facility] Ondansetron HCl (Zofran Inj) 4 mg IVP Q6 PRN PRN Reason: Nausea/Vomiting Pantoprazole Sodium (Protonix Inj) 40 mg IVP DAILY [facility] Last Admin: 03/30/17 16:00 Dose: 40 mg Results - Vital Signs Recent Vital Signs: Last Vital Signs Temp 99.3 F 03/30/17 16:00 Pulse 148 H 03/30/17 16:00 Resp 20 03/30/17 15:15 BP 134/89 03/30/17 16:00 Pulse Ox 100 03/30/17 16:00 - Labs Result Diagrams: 03/30/17 15:00 03/30/17 15:00 Labs: Laboratory Results - last 24 hr 03/29/17 03/30/17 03/30/17 23:59 00:55 01:00 WBC 40.4 H* RBC 3.87 Hgb 10.3 L Hct 33.2 L MCV 85.8 MCH 26.7 L MCHC 31.2 L RDW 16.5 H Plt Count 239 MPV 9.7 Neut % (Auto) 96.1 H Lymph % (Auto) 0.7 L [place] % (Auto) 3.0 Eos % (Auto) 0.0 Baso % (Auto) 0.2 Neut # 38.8 H Lymph # 0.3 L [place] # 1.2 H Eos # 0.0 Baso # 0.1 Neutrophils % (Manual) 78 H Band Neutrophils % 8 H Lymphocytes % (Manual) 1 L Monocytes % (Manual) 1 Metamyelocytes % 8 H Myelocytes % 4 H Platelet Estimate Normal Hypochromasia (manual) Slight Anisocytosis (manual) Slight Target Cells Slight Ovalocytes Slight Acanthocytes (Spur) Slight ESR pCO2 pO2 HCO3 ABG pH ABG Total CO2 ABG O2 Saturation ABG O2 Content ABG Base Excess ABG Hemoglobin ABG Carboxyhemoglobin POC ABG HHb (Measured) ABG Methemoglobin ABG O2 Capacity [place] Test A-a O2 Difference Hgb O2 Saturation Mechanical Rate FiO2 Tidal Volume PEEP Crit Value Called To Crit Value Called By Crit Value Read Back Blood Gas Notified Time Sodium 136 Potassium 5.1 H Chloride 115 H Carbon Dioxide 10 L* D Anion Gap 16 BUN 52 H Creatinine 4.2 H Est GFR ( Amer) 14 Est GFR (Non-Af Amer) 12 POC Glucose (mg/dL) Random Glucose 95 Lactic Acid 1.3 Calcium 6.2 L Phosphorus 6.2 H Magnesium 0.9 L* Total Bilirubin 0.1 L AST 79 H ALT 48 Alkaline Phosphatase 53 Ammonia Lactate Dehydrogenase Total Creatine Kinase Total Protein 5.4 L Albumin 2.4 L Globulin 3.0 Albumin/Globulin Ratio 0.8 L Lipase 141 25-OH Vitamin D Total Procalcitonin Urine Opiates Screen Urine Methadone Screen Acetaminophen Ur Barbiturates Screen Ur Phencyclidine Scrn Ur Amphetamines Screen U Benzodiazepines Scrn U Oth Cocaine Metabols U Cannabinoids Screen Alcohol, Quantitative Complement C3 Complement C4 Influenza Typ A,B (EIA) 03/30/17 03/30/17 03/30/17 02:13 02:31 03:41 WBC RBC Hgb Hct MCV MCH MCHC RDW Plt Count MPV Neut % (Auto) Lymph % (Auto) [place] % (Auto) Eos % (Auto) Baso % (Auto) Neut # Lymph # [place] # Eos # Baso # Neutrophils % (Manual) Band Neutrophils % Lymphocytes % (Manual) Monocytes % (Manual) Metamyelocytes % Myelocytes % Platelet Estimate Hypochromasia (manual) Anisocytosis (manual) Target Cells Ovalocytes Acanthocytes (Spur) ESR pCO2 pO2 HCO3 ABG pH ABG Total CO2 ABG O2 Saturation ABG O2 Content ABG Base Excess ABG Hemoglobin ABG Carboxyhemoglobin POC ABG HHb (Measured) ABG Methemoglobin ABG O2 Capacity [place] Test A-a O2 Difference Hgb O2 Saturation Mechanical Rate FiO2 Tidal Volume PEEP Crit Value Called To Crit Value Called By Crit Value Read Back Blood Gas Notified Time Sodium Potassium Chloride Carbon Dioxide Anion Gap BUN Creatinine Est GFR ( Amer) Est GFR (Non-Af Amer) POC Glucose (mg/dL) 72 281 H Random Glucose Lactic Acid Calcium Phosphorus Magnesium Total Bilirubin AST ALT Alkaline Phosphatase Ammonia Lactate Dehydrogenase Total Creatine Kinase Total Protein Albumin Globulin Albumin/Globulin Ratio Lipase 25-OH Vitamin D Total Procalcitonin Urine Opiates Screen Urine Methadone Screen Acetaminophen Ur Barbiturates Screen Ur Phencyclidine Scrn Ur Amphetamines Screen U Benzodiazepines Scrn U Oth Cocaine Metabols U Cannabinoids Screen Alcohol, Quantitative Complement C3 Complement C4 Influenza Typ A,B (EIA) Negative for flu a/b 03/30/17 03/30/17 03/30/17 03:44 15:00 15:00 WBC 49.1 H* RBC 3.98 Hgb 10.8 L Hct 34.8 MCV 87.4 MCH 27.0 MCHC 30.9 L RDW 17.5 H Plt Count 200 MPV 10.3 Neut % (Auto) 81.7 H Lymph % (Auto) 0.9 L [place] % (Auto) 16.3 H Eos % (Auto) 0.6 Baso % (Auto) 0.5 Neut # 40.1 H Lymph # 0.5 L [place] # 8.0 H Eos # 0.3 Baso # 0.2 Neutrophils % (Manual) Band Neutrophils % Lymphocytes % (Manual) Monocytes % (Manual) Metamyelocytes % Myelocytes % Platelet Estimate Hypochromasia (manual) Anisocytosis (manual) Target Cells Ovalocytes Acanthocytes (Spur) ESR 41 H pCO2 pO2 HCO3 ABG pH ABG Total CO2 ABG O2 Saturation ABG O2 Content ABG Base Excess ABG Hemoglobin ABG Carboxyhemoglobin POC ABG HHb (Measured) ABG Methemoglobin ABG O2 Capacity [place] Test A-a O2 Difference Hgb O2 Saturation Mechanical Rate FiO2 Tidal Volume PEEP Crit Value Called To Crit Value Called By Crit Value Read Back Blood Gas Notified Time Sodium 139 Potassium 5.7 H Chloride 113 H Carbon Dioxide 10 L* Anion Gap 22 H BUN 57 H Creatinine 4.6 H Est GFR ( Amer) 13 Est GFR (Non-Af Amer) 11 POC Glucose (mg/dL) Random Glucose 163 H Lactic Acid Calcium 6.2 L Phosphorus 8.7 H Magnesium 1.9 Total Bilirubin 0.2 AST 114 H D ALT 60 H D Alkaline Phosphatase 91 Ammonia Lactate Dehydrogenase 1567 H Total Creatine Kinase 64 156 H Total Protein 6.1 L Albumin 2.7 L Globulin 3.4 Albumin/Globulin Ratio 0.8 L Lipase 25-OH Vitamin D Total Procalcitonin Urine Opiates Screen Urine Methadone Screen Acetaminophen Ur Barbiturates Screen Ur Phencyclidine Scrn Ur Amphetamines Screen U Benzodiazepines Scrn U Oth Cocaine Metabols U Cannabinoids Screen Alcohol, Quantitative < 10 Complement C3 Complement C4 Influenza Typ A,B (EIA) 03/30/17 03/30/17 03/30/17 15:00 15:00 15:00 WBC RBC Hgb Hct MCV MCH MCHC RDW Plt Count MPV Neut % (Auto) Lymph % (Auto) [place] % (Auto) Eos % (Auto) Baso % (Auto) Neut # Lymph # [place] # Eos # Baso # Neutrophils % (Manual) Band Neutrophils % Lymphocytes % (Manual) Monocytes % (Manual) Metamyelocytes % Myelocytes % Platelet Estimate Hypochromasia (manual) Anisocytosis (manual) Target Cells Ovalocytes Acanthocytes (Spur) ESR pCO2 pO2 HCO3 ABG pH ABG Total CO2 ABG O2 Saturation ABG O2 Content ABG Base Excess ABG Hemoglobin ABG Carboxyhemoglobin POC ABG HHb (Measured) ABG Methemoglobin ABG O2 Capacity [place] Test A-a O2 Difference Hgb O2 Saturation Mechanical Rate FiO2 Tidal Volume PEEP Crit Value Called To Crit Value Called By Crit Value Read Back Blood Gas Notified Time Sodium Potassium Chloride Carbon Dioxide Anion Gap BUN Creatinine Est GFR ( Amer) Est GFR (Non-Af Amer) POC Glucose (mg/dL) Random Glucose Lactic Acid 3.9 H Calcium Phosphorus Magnesium Total Bilirubin AST ALT Alkaline Phosphatase Ammonia Lactate Dehydrogenase Total Creatine Kinase Total Protein Albumin Globulin Albumin/Globulin Ratio Lipase 25-OH Vitamin D Total 14.7 L Procalcitonin 127.48 H Urine Opiates Screen Urine Methadone Screen Acetaminophen Ur Barbiturates Screen Ur Phencyclidine Scrn Ur Amphetamines Screen U Benzodiazepines Scrn U Oth Cocaine Metabols U Cannabinoids Screen Alcohol, Quantitative Complement C3 Complement C4 Influenza Typ A,B (EIA) 03/30/17 03/30/17 03/30/17 15:00 15:00 15:00 WBC RBC Hgb Hct MCV MCH MCHC RDW Plt Count MPV Neut % (Auto) Lymph % (Auto) [place] % (Auto) Eos % (Auto) Baso % (Auto) Neut # Lymph # [place] # Eos # Baso # Neutrophils % (Manual) Band Neutrophils % Lymphocytes % (Manual) Monocytes % (Manual) Metamyelocytes % Myelocytes % Platelet Estimate Hypochromasia (manual) Anisocytosis (manual) Target Cells Ovalocytes Acanthocytes (Spur) ESR pCO2 pO2 HCO3 ABG pH ABG Total CO2 ABG O2 Saturation ABG O2 Content ABG Base Excess ABG Hemoglobin ABG Carboxyhemoglobin POC ABG HHb (Measured) ABG Methemoglobin ABG O2 Capacity [place] Test A-a O2 Difference Hgb O2 Saturation Mechanical Rate FiO2 Tidal Volume PEEP Crit Value Called To Crit Value Called By Crit Value Read Back Blood Gas Notified Time Sodium Potassium Chloride Carbon Dioxide Anion Gap BUN Creatinine Est GFR ( Amer) Est GFR (Non-Af Amer) POC Glucose (mg/dL) Random Glucose Lactic Acid Calcium Phosphorus Magnesium Total Bilirubin AST ALT Alkaline Phosphatase Ammonia 33 Lactate Dehydrogenase Total Creatine Kinase Total Protein Albumin Globulin Albumin/Globulin Ratio Lipase 25-OH Vitamin D Total Procalcitonin Urine Opiates Screen Urine Methadone Screen Acetaminophen < 10.0 L Ur Barbiturates Screen Ur Phencyclidine Scrn Ur Amphetamines Screen U Benzodiazepines Scrn U Oth Cocaine Metabols U Cannabinoids Screen Alcohol, Quantitative Complement C3 71.0 L Complement C4 33.3 Influenza Typ A,B (EIA) 03/30/17 03/30/17 15:06 16:00 WBC RBC Hgb Hct MCV MCH MCHC RDW Plt Count MPV Neut % (Auto) Lymph % (Auto) [place] % (Auto) Eos % (Auto) Baso % (Auto) Neut # Lymph # [place] # Eos # Baso # Neutrophils % (Manual) Band Neutrophils % Lymphocytes % (Manual) Monocytes % (Manual) Metamyelocytes % Myelocytes % Platelet Estimate Hypochromasia (manual) Anisocytosis (manual) Target Cells Ovalocytes Acanthocytes (Spur) ESR pCO2 34 L pO2 207 H HCO3 8.3 L* ABG pH 7.01 L* ABG Total CO2 9.6 L ABG O2 Saturation 99.8 H ABG O2 Content 14.4 L ABG Base Excess -21.3 L ABG Hemoglobin 10.3 L ABG Carboxyhemoglobin 1.4 POC ABG HHb (Measured) 0.2 ABG Methemoglobin 2.5 ABG O2 Capacity 14.4 L [place] Test Yes A-a O2 Difference 464.0 Hgb O2 Saturation 95.8 Mechanical Rate 14 FiO2 100.0 Tidal Volume 450 PEEP 5 Crit Value Called To Dr cynthia chaves Crit Value Called By Crit Value Read Back Y Blood Gas Notified Time 1614 Sodium Potassium Chloride Carbon Dioxide Anion Gap BUN Creatinine Est GFR ( Amer) Est GFR (Non-Af Amer) POC Glucose (mg/dL) Random Glucose Lactic Acid Calcium Phosphorus Magnesium Total Bilirubin AST ALT Alkaline Phosphatase Ammonia Lactate Dehydrogenase Total Creatine Kinase Total Protein Albumin Globulin Albumin/Globulin Ratio Lipase 25-OH Vitamin D Total Procalcitonin Urine Opiates Screen Positive H Urine Methadone Screen Negative Acetaminophen Ur Barbiturates Screen Negative Ur Phencyclidine Scrn Negative Ur Amphetamines Screen Negative U Benzodiazepines Scrn Negative U Oth Cocaine Metabols Negative U Cannabinoids Screen Negative Alcohol, Quantitative Complement C3 Complement C4 Influenza Typ A,B (EIA) Attending/Attestation - Attestation I have personally seen and examined this patient.: Yes I have fully participated in the care of the patient.: Yes I have reviewed all pertinent clinical information: Yes Notes (Text): Pt was seen and examined at bedside Agree with above note and assessment Pt with altered mental status, Dehydration Labs and radiology removed. Consent from family TLC placement at bedside irwin current mx Plan tadeow primary team in detail. Risk and benefit explained in detail.
[2017-03-30] MEDS: Meropenem 500 MG in Sodium Chloride 0.9% 50 ML IVPB SCH (17:05)
--- NOTE | 2017-03-30 18:21 | RAD ---
HISTORY: check placement ETT COMPARISON: Comparison made with prior study dated 03/30/2017 at 1522 hours. FINDINGS: LUNGS: ETT has been withdrawn with tip now lying approximately 1.8 cm above octavio. Interval mild improvement previously noted atelectatic changes left lung base. PLEURA: No significant pleural effusion identified, no pneumothorax apparent. CARDIOVASCULAR: Normal. OSSEOUS STRUCTURES: No significant abnormalities. VISUALIZED UPPER ABDOMEN: Normal. OTHER FINDINGS: None. IMPRESSION: ETT has been withdrawn with tip now lying approximately 1.8 cm above octavio. Interval mild improvement previously noted atelectatic changes left lung base.
--- NOTE | 2017-03-30 20:50 | MRI ---
EXAM: MR Angiography Head Without Intravenous Contrast CLINICAL HISTORY: 37 years old, female; Signs and symptoms; Other: Altered mental status TECHNIQUE: Magnetic resonance angiography images of the head without intravenous contrast. COMPARISON: None for the FINDINGS: Right internal carotid artery: No acute findings. Intracranial segment is patent with no hemodynamically significant stenosis. No aneurysmal dilatation. Right anterior cerebral artery: No occlusion or significant stenosis. No aneurysm. Right middle cerebral artery: No occlusion or significant stenosis. No aneurysm. Right posterior cerebral artery: . No occlusion or significant stenosis. No aneurysm. Right vertebral artery: Unremarkable as visualized. Left internal carotid artery: No acute findings. Intracranial segment is patent with no hemodynamically significant stenosis. No dilatation. Left anterior cerebral artery: No occlusion or significant stenosis. No aneurysm. Left middle cerebral artery: No occlusion or significant stenosis. No aneurysm. Left posterior cerebral artery: No occlusion or significant stenosis. No aneurysm. Left vertebral artery: Unremarkable as visualized. Basilar artery: No occlusion or significant stenosis. No aneurysm. IMPRESSION: Unremarkable MRA examination of the brain, as detailed above.
--- NOTE | 2017-03-30 20:52 | MRI ---
EXAM: MR Angiography Neck Without Intravenous Contrast CLINICAL HISTORY: 37 years old, female; Signs and symptoms; Other: Altered mental status TECHNIQUE: Magnetic resonance angiography images of the neck without intravenous contrast. COMPARISON: None. FINDINGS: Right common carotid artery: No significant stenosis. No dissection or occlusion. Right internal carotid artery: Extracranial segment is patent with no significant stenosis. No dissection or occlusion. Right external carotid artery: No occlusion. Right vertebral artery: No significant stenosis. No dissection or occlusion. Left common carotid artery: No significant stenosis. No dissection or occlusion. Left internal carotid artery: Extracranial segment is patent with no significant stenosis. No dissection or occlusion. Left external carotid artery: No occlusion. Left vertebral artery: No significant stenosis. No dissection or occlusion. Soft tissues: Significant inflammatory sinus disease CAROTID STENOSIS REFERENCE USING NASCET CRITERIA: % ICA stenosis = (1 - narrowest ICA diameter/diameter of distal cervical ICA) x 100. Mild - <50% stenosis. Moderate - 50-69% stenosis. Severe - 70-94% stenosis. Near occlusion - 95-99% stenosis. Occluded - 100% stenosis. IMPRESSION: No hemodynamically significant stenosis within the bilateral internal carotid arteries, as detailed above.
[2017-03-30] MEDS: Linezolid 600 mg in D5W 300 ml 600 MG/300 ML BAG IVPB SCH (20:55)
[2017-03-30] MEDS ORDERED: Dexamethasone 10 MG in Sodium Chloride 0.9% 50 ML IVPB SCH (21:15)
[2017-03-31] MEDS: Meropenem 500 MG in Sodium Chloride 0.9% 50 ML IVPB SCH ×3 (01:00→17:34)
[2017-03-31] MEDS: metroNIDAZOLE 500mg/100ml NS 100 ML IVPB SCH ×2 (01:00→09:45)
--- NOTE | 2017-03-31 04:36 | PN ---
DATE: 03/30/2017 CRITICAL CARE PROGRESS NOTE LOCATION: Patient in ICU, bed 427. time 45 mts. SUBJECTIVE: Patient is seen and evaluated at the bedside. Events since admission reviewed. Events in the ER are noted. Case discussed with overnight hospitalist. Discussed with primary attending, consultants and family members. Past medical, surgical and social history reviewed. A 37-year-old female, past medical history significant for systemic lupus erythematosus, lupus nephritis, ITP, status post splenectomy, history of previous encephalitis, ischemic stroke, hypertension, admitted through ED after she developed nausea, vomiting, fever and lethargy. Reportedly, she was treated with Zithromax for about 5 days prior to the admission for suspected sinusitis. In the ER, patient was reportedly more alert and awake, but because of the pain she received morphine and Ativan x2, subsequently noted to be much more lethargic and agitated. In ICU, patient was noted to be very agitated and without IV line. She was sedated, she required Ativan and Haldol for IV insertion. However, patient became more and more agitated requiring more sedation. Patient was intubated for airway protection by Anesthesia. Repeat postop chest x-ray showed placement of the endotracheal tube abutting the octavio. The endotracheal tube was pulled back and secured at 19 to 20 cm on lips. Currently sedated on IV Diprivan drip. Remains comfortable on the ventilator. Current vent setting, AC 14, tidal volume 450, FiO2 100%, PEEP of 5, exhaled observed rate of 14, exhaled tidal volume 430, minute ventilation 5.9 L, oxygen saturation 98%, FiO2 reduced to 60%. PHYSICAL EXAMINATION: HEAD, EYES, EARS, NOSE, AND THROAT:: Pupils reactive. Conjunctivae pink. Sclerae white. NECK: Supple. Trachea central. CHEST: Bilateral breath sounds, clear to auscultation anteriorly and laterally. HEART: Rhythm regular. S1, S2 normal. No audible murmur. ABDOMEN: Bowel sounds are present and soft. EXTREMITIES: The right femoral TLC in place with minimal hematoma. Dorsalis pedis palpable, equal in intensity. NEUROLOGIC: With altered mental status. Poor response to verbal commands. left hemiparesis, contracted right and left arms. IMPRESSION: 1. Neurologic: Acute change in mental status. Septic encephalopathy. However, source not clear. Leukemoid reaction with leukocytosis as per Hematology consult, possible encephalitis given sinusitis and/or lupus involvement with lupus cerebritis, metabolic encephalopathy given acute renal failure, seen by Neurology, recommended MRI of the brain and MRA of the head and neck pending, to be done.possible new stroke 2. Pulmonary: No clear evidence of pneumonia. Endotracheal tube in the octavio repositioned, l follow chest x-ray. 3. Cardiac: Tachycardia related to systemic inflammatory response syndrome/dehydration, given history of nausea, vomiting, abdominal pain and diarrhea. 4. Gastrointestinal: History of nausea, vomiting and diarrhea, unclear etiology. History of erythromycin week prior to the admission. Elevated abnormal liver function test with AST and ALT and elevated LDH, but ammonia level is 33. 5. Renal: Acute history of renal insufficiency, improved on CellCept and prednisone, currently on prednisone. Suspected dehydration, lupus nephritis considered, currently on increased dose of steroid. 6. Infectious disease: Leukocytosis, peripheral smear consistent with leukemoid reaction, given history of lupus and lupus cerebritis is considered. Neurology raised the issue for coverage for herpes, we will discuss with ID for consideration to add acyclovir for herpes encephalitis. 7. Hematology: Leukocytosis, leukemoid reaction, anemia from chronic disease. 8. Endocrine. No electrolyte abnormalities. Maintain blood sugar less than 180. We will discuss with Interventional Radiology for lumbar puncture after neuro imaging is completed. Appreciate ID followup and recommendation to begin on meropenem, Zyvox and Flagyl. Cornell Durand MD [facility]
[2017-03-31 05:11] LABS: ABG ALLEN TEST YES; ABG MECHANICAL RATE 14; ARTERIAL BLOOD GAS HCO3 12.4 mmol/L (21-28); ARTERIAL BLOOD GAS MODE A/C; ARTERIAL BLOOD GAS O2 CAPACITY 12.6 mL/dL (16-24); ARTERIAL BLOOD GAS O2 CONTENT 12.5 ML/dL (15-23); ARTERIAL BLOOD GAS PH 7.26 (7.35-7.45); ARTERIAL BLOOD GAS PO2 108 mm/Hg (80-100); ARTERIAL BLOOD HGB O2 SAT 95.1 % (95.0-98.0); ATERIAL BLOOD GAS PEEP 5; CARBOXYHEMOGLOBIN 1.4 % (0.5-1.5); HHB 0.8 % (0.0-5.0); METHEMOGLOBIN 2.7 % (0.0-3.0)
[2017-03-31 05:37] LABS: HEMATOCRIT 28.4 % (34.0-47.0); MEAN CELL VOLUME 85.5 fl (81.0-99.0); MEAN CORPUSCULAR HEMOGLOBIN 26.1 pg (27.0-31.0); MEAN CORPUSCULAR HGB CONC 30.5 g/dL (33.0-37.0); RED CELL DISTRIBUTION WIDTH 17.3 % (11.5-14.5)
[2017-03-31 05:57] LABS: WHITE BLOOD COUNT 49.4 K/uL (4.8-10.8)
[2017-03-31 06:01] LABS: ALB/GLOB RATIO 0.7 (1.0-2.1); BILIRUBIN,TOTAL 0.4 mg/dl (0.2-1.3); CALCIUM 5.3 mg/dL (8.4-10.2); POTASSIUM 4.9 MMOL/L (3.6-5.0); TOTAL PROTEIN 4.9 G/DL (6.3-8.2)
[2017-03-31 06:10] VITALS: O2SAT 100
[2017-03-31] MEDS ORDERED: Sodium Bicarbonate 7.5% (0.9 MEQ/ML) 50ML INJ IV ONE (06:22)
--- NOTE | 2017-03-31 07:14 | OP ---
PROCEDURE DATE: 03/30/2017 PREOPERATIVE DIAGNOSES: 1. Altered mental status. 2. Severe dehydration. 3. Unable to obtain venous access. POSTOPERATIVE DIAGNOSES: 1. Altered mental status. 2. Severe dehydration. 3. Unable to obtain venous access PROCEDURE DONE: Right femoral central line placement. SURGEON: Cr Bowden MD [employer] DOOR TECHNICIAN: Dr. Montaño, the ICU attending. ANESTHESIA: Local anesthesia. The patient was intubated before the procedure due to the altered mental status. ESTIMATED BLOOD LOSS: Around 50 mL. DRAIN: None. PATHOLOGY: None. COMPLICATIONS: None. INTRAOPERATIVE FINDINGS: The patient had good venous return from the central line. DESCRIPTION OF PROCEDURE: On intraoperative steps, this is a 37-year-old female who was admitted in ICU with altered mental status and severe dehydration with severe tachycardia, and the patient had no IV access. After intubation and sedation of the patient, first, left groin was prepped and draped under sterile precaution and the intravenous access was tried. After 3 or 4 attempts, the position was changed from the left to the right side. The right groin was previously accessed by ICU attending, and he was unable to obtain venous access due to the patient's movement. Now, again, right groin was prepped and draped, and under sterile condition, the right femoral access was gained. Guidewire was placed and catheter was passed through the guidewire, and the guidewire was taken out. The catheter was flushed and the port was flushed, and it was functioning properly. The central line was secured to the skin and dry sterile dressing was applied. Patient tolerated the procedure well. Count of the instrument and gauze were correct. There was no apparent complication. Cr Bowden MD
[2017-03-31 08:18] VITALS: RESP 18
[2017-03-31] MEDS ORDERED: Calcium Gluconate 4.65 mEq/10 ml Inj IV STA (09:11)
--- NOTE | 2017-03-31 09:13 | CP.PCM.PN ---
Subjective - Date & Time of Evaluation Date of Evaluation: 03/31/17 Time of Evaluation: 09:11 - Subjective Subjective: Ms. Bar was seen and examined at the bedside. She is on mechanical ventilation with GCS-4T. Sedation is off and responsive to pain stimuli. She has gag reflex and very sluggish pupils to react. There was no untoward events overnight. Objective - Vital Signs/Intake and Output Vital Signs (last 24 hours): Temp Pulse Resp BP Pulse Ox 98.7 F 119 H 18 95/66 L 100 03/31/17 08:00 03/31/17 08:00 03/31/17 08:00 03/31/17 08:00 03/31/17 08:00 Intake and Output: 03/31/17 03/31/17 06:59 18:59 Intake Total 1373 Output Total 400 Balance 973 - Medications Medications: Current Medications Aspirin (Aspirin) 325 mg NG DAILY [facility] Clopidogrel Bisulfate (Plavix) 75 mg PO DAILY [facility] Dexamethasone (Decadron Inj) 10 mg IV Q12H [facility] Last Admin: 03/30/17 22:15 Dose: 10 mg Heparin Sodium (Porcine) (Heparin) 5,000 units SC Q12 [facility] PRN Reason: Protocol Last Admin: 03/30/17 20:54 Dose: 5,000 units Metronidazole (Flagyl 500mg/100ml Ns) 100 mls @ 100 mls/hr IVPB Q8 [facility] PRN Reason: Protocol Last Admin: 03/31/17 01:00 Dose: 100 mls/hr Meropenem 500 mg/ Sodium (Chloride) 50 mls @ 50 mls/hr IVPB Q8 [facility] PRN Reason: Protocol Last Admin: 03/31/17 01:00 Dose: 50 mls/hr Linezolid (Zyvox 600mg/300ml D5w) 600 mg in 300 mls @ 300 mls/hr IVPB Q12 [facility] PRN Reason: Protocol Last Admin: 03/30/17 20:55 Dose: 300 mls/hr Sodium Bicarbonate 50 meq/ (Dextrose) 1,050 mls @ 125 mls/hr IV .Q8H24M [facility] Stop: 03/31/17 17:56 Last Admin: 03/30/17 23:00 Dose: 125 mls/hr Propofol (Diprivan) 1,000 mg in 100 mls @ 1.905 mls/hr IV .Q24H [facility]; 5 MCG/KG/ MIN PRN Reason: Protocol Stop: 03/31/17 17:21 Last Admin: 03/30/17 14:10 Dose: 5 mcg/kg/min, 1.905 mls/hr Sodium Bicarbonate 50 meq/ (Dextrose) 1,050 mls @ 125 mls/hr IV .Q8H24M [facility] Stop: 04/01/17 09:06 Morphine Sulfate (Morphine) 2 mg IVP Q6 PRN PRN Reason: Pain, moderate (4-7) Mycophenolate Mofetil (Cellcept Cap) 500 mg PO BID [facility] Ondansetron HCl (Zofran Inj) 4 mg IVP Q6 PRN PRN Reason: Nausea/Vomiting Pantoprazole Sodium (Protonix Inj) 40 mg IVP DAILY [facility] Last Admin: 03/30/17 16:00 Dose: 40 mg - Labs Labs: 03/31/17 04:30 03/31/17 04:30 - Constitutional Appears: No Acute Distress - Head Exam Head Exam: ATRAUMATIC - Neurological Exam Neuro motor strength exam: Left Upper Extremity: 2/1, Right Upper Extremity: 2/1 , Left Lower Extremity: 2/1, Right Lower Extremity: 2/1 Additional comments: GCS-4T Assessment and Plan (1) Acute encephalopathy Assessment & Plan: Case discussed with Dr. Brock, continue all current medical regimen. Follow up MRI of the brain , MRA of the head and neck, and EEG Status: Acute
[2017-03-31] MEDS ORDERED: Sodium Bicarbonate 8.4% 50 MEQ in Dextrose 5% In Water 1,000 ML IV SCH (09:15)
[2017-03-31] MEDS ORDERED: DEXTROSE 5% IV ONE (09:30)
[2017-03-31] MEDS ORDERED: WATER IV ONE (09:30)
[2017-03-31] MEDS ORDERED: CALCIUM GLUCONATE IV ONE (09:30)
[2017-03-31] MEDS: Linezolid 600 mg in D5W 300 ml 600 MG/300 ML BAG IVPB SCH (09:55)
--- NOTE | 2017-03-31 09:56 | CP.PCM.PN ---
Subjective - Date & Time of Evaluation Date of Evaluation: 03/31/17 Time of Evaluation: 07:00 - Subjective Subjective: Pt seen and evaluated at the bedside this morning. ET tube, Femoral triple lumen cath, and Ly in place. Patient seen lying in bed, eyes, closed, non verbal, responsive to painful stimuli. GCS 4. Objective - Vital Signs/Intake and Output Vital Signs (last 24 hours): Temp Pulse Resp BP Pulse Ox 98.7 F 119 H 18 95/66 L 100 03/31/17 08:00 03/31/17 08:00 03/31/17 08:00 03/31/17 08:00 03/31/17 08:00 Intake and Output: 03/31/17 03/31/17 06:59 18:59 Intake Total 1373 Output Total 400 Balance 973 - Medications Medications: Current Medications Aspirin (Aspirin) 325 mg NG DAILY [facility] Clopidogrel Bisulfate (Plavix) 75 mg PO DAILY [facility] Dexamethasone (Decadron Inj) 10 mg IV Q12H [facility] Last Admin: 03/30/17 22:15 Dose: 10 mg Heparin Sodium (Porcine) (Heparin) 5,000 units SC Q12 [facility] PRN Reason: Protocol Last Admin: 03/30/17 20:54 Dose: 5,000 units Metronidazole (Flagyl 500mg/100ml Ns) 100 mls @ 100 mls/hr IVPB Q8 [facility] PRN Reason: Protocol Last Admin: 03/31/17 01:00 Dose: 100 mls/hr Meropenem 500 mg/ Sodium (Chloride) 50 mls @ 50 mls/hr IVPB Q8 [facility] PRN Reason: Protocol Last Admin: 03/31/17 01:00 Dose: 50 mls/hr Linezolid (Zyvox 600mg/300ml D5w) 600 mg in 300 mls @ 300 mls/hr IVPB Q12 [facility] PRN Reason: Protocol Last Admin: 03/30/17 20:55 Dose: 300 mls/hr Propofol (Diprivan) 1,000 mg in 100 mls @ 1.905 mls/hr IV .Q24H [facility]; 5 MCG/KG/ MIN PRN Reason: Protocol Stop: 03/31/17 17:21 Last Admin: 03/30/17 14:10 Dose: 5 mcg/kg/min, 1.905 mls/hr Sodium Bicarbonate 50 meq/ (Dextrose) 1,050 mls @ 125 mls/hr IV .Q8H24M [facility] Stop: 04/01/17 09:06 Calcium Gluconate 4.6 meq/ (Dextrose) 59.8924 mls @ 59.892 mls/hr IV ONCE ONE Stop: 03/31/17 10:29 Morphine Sulfate (Morphine) 2 mg IVP Q6 PRN PRN Reason: Pain, moderate (4-7) Mycophenolate Mofetil (Cellcept Cap) 500 mg PO BID [facility] Ondansetron HCl (Zofran Inj) 4 mg IVP Q6 PRN PRN Reason: Nausea/Vomiting Pantoprazole Sodium (Protonix Inj) 40 mg IVP DAILY [facility] Last Admin: 03/30/17 16:00 Dose: 40 mg - Labs Labs: 03/31/17 04:30 03/31/17 04:30 - Constitutional Appears: No Acute Distress (On mechanical ventilation, sedated) - Head Exam Head Exam: ATRAUMATIC - Eye Exam Pupil Exam: Fixed, Miosis Additional comments: Exphopthalmos BL - Neck Exam Neck Exam: Normal Inspection - Respiratory Exam Respiratory Exam: Clear to Ausculation Bilateral. absent: Wheezes - Cardiovascular Exam Cardiovascular Exam: +S1, +S2. absent: JVD, Murmur - GI/Abdominal Exam GI & Abdominal Exam: Soft, Normal Bowel Sounds. absent: Distended, Tenderness - Extremities Exam Extremities Exam: absent: Pedal Edema - Neurological Exam Neurological Exam: Alert Additional comments: GCS 4. Eyes closed. Non verbal. Responsive to painful stimuli. Assessment and Plan - Assessment and Plan (Free Text) Assessment: Assessment: 37 y/o female with PMHx of Lupus, Lupus Nephritis (Stage V), Hx of CVA and Meningitis admitted for Sepsis, GAYE, and AMS found to have left sided CVA. Pt was intubated to protect airways and is currently sedated on mechanical ventilation. #AMS -Likely 2/2 to acute CVA as per Brain MRI findings. At baseline, pt is alert and oriented with residual L sided weakness and contracted upper ex from prior CVA. -Brain MRI: Cerebral Infarct of Right MCA and Left LYUDMILA. -Head CT on admission: No acute infarct -ASA, Decadron 10mg -Intubated and sedated overnight. Off sedation this morning. -GCS 4: No eye opening, no verbal response, extension to pain -Neurology on board- Dr. Brock's impression of Brain MRI was Vasculitis. EEG ordered. -ESR 41 suggesting vasculitits Plan: Repeat Head CT, EEG #Sepsis -Afebrile, Tachycardic (120's) w/ Leukocytosis -WBC 46, Procalcitonin 127, Anion Gap 21 -Lactic Acid 3.9, ESR 41, LDH 1567, CK 156 -ABG: pH 7.26, pC02 21, pHCO3 12.4 (Metabolic acidosis) -Likely secondary to Colitis as pt had GI symptoms and mild Colitis noted on Abdominal CT. Pt also had flare of her chronic sinusitis recently as per family so this can also be an underlying source of infection as well. -Flagyl 500mg q8, Meropenem 500mg q8, Linozelid 600mg q12 -Received 1gm of Vancomycin -IV Hydration: NaHCO3 D5W at 125cc/hr overnight via femoral central line -BCx: Gram positive cocci (coagulase neg) likely contaminated; will repeat -ID Consult appreciated- Empiric Abx Meropenem, Clindamycin, Daptomycin. Linozelid D/C'ed given low platelets. Consider SURJIT if repeat BCx are positive -Cardio consult appreciated, Echo:unremarkable -ENT consult appreciated: F/U Sinus CT Plan: F/u Repeat BCx, Fungal Cx, UCx, Stool Cx, Sputum Cx, Cdiff, CBC, CMP #Acute Tubular Necrosis -Likely Acute Tubular Necrosis 2/2 to prolonged prerenal vs lupus nephritis flare. -BUN: 63, Creatinine: 4.8. -U/A moderate blood, WBC 6, Nitrate neg, U sodium 51, U creat 64.9, FENA 9.9 % -Hypomagnesia, Mg repleted, F/U repeat Mg. -Hypocalcemia 6.8 with albumin correction. Repleted -Nephrology on board- Spoke on phone with Dr. Florian. C/w NaHCO3 D5W at 125c/hr for fluid hydration Plan: F/u Ulytes, F/u repeat BMP, Mg #Anemia, Normocytic -Hg 10.8 on admission, 8.7 today -Likely 2/2 to repeat phlebotomies vs multiple central line attempts vs dilution -Will continue to monitor -F/U CBC #Thrombocytopenia -Platelets 121 today, 239 on admission -Heparin held -Heparin-Induced AB ordered -Plavix DC'ed -F/U CBC #Transaminitits, resolving -AST 100 to 60 -ALT 60 to 58 -Likely hepatitis due to reduced blood flow secondary to volume depletion/ dehydration -Improving # SLE nephritis - IV methylprednislone 125mg x1 in ER - Mycophenolic acid, held for now - Nephro on board -F/U Complement C3, C4, and Urine Creatine and Lytes #Diarrhea - F/U with C diff and stool cultures - Not currently having loose stools # Hypertension -BP 90's/60's -Likely secondary to sepsis -Currently hold Diovan #Hyperlipidemia - Simvastatin 20 mg # Prophylaxis - DVT : 5000 Heparin SC and SCD - GI: Protonix #Diet -NPO
[2017-03-31 10:13] LABS: RBC URINE 3 /hpf (0-3); URINE BACTERIA RARE (<OCC); URINE BILIRUBIN NEGATIVE (NEGATIVE); URINE BLOOD MODERATE (NEGATIVE); URINE COLOR YELLOW (YELLOW); URINE GLUCOSE (UA) NEG (Normal); URINE KETONE NEGATIVE (NEGATIVE); URINE LEUKOCYTE ESTERASE TRACE Leu/uL (Negative); URINE PROTEIN 100 mg/dL (NEGATIVE); URINE UROBILINOGEN 0.2-1.0 mg/dL (0.2-1.0); WBC URINE 6 /hpf (0-5)
--- NOTE | 2017-03-31 10:34 | CP.PCM.CON ---
History of Present Illness - History of Present Illness History of Present Illness: This is a 37 yrs old female whom I have known since 1997 when she was diagnosed to have a immune thrombocytopenia. She was later found to have SLE and has been on treatment or the same. She is now developing nephritis with a creatinine of 4.6. In 2000 she had a CVA following a severe sinus infection. She also has hypertension. She came to the ER with c/o vomiting several times and diarrhea 4-5 times . She was very dehydrated and received hydration in the ER, Pt who was weak but responsive became lethargic and then unresponsive. She is in ICU intubated to maintain the airway. Pt recently had a upper respiratory infection, and was on antibiotics until 2 days ago. On admission her wbc was 40 and is now 49, Hgb was 10.2 and is now 8.7, and platelets 239 down to 121. Sed rate is 41. Pt is still very lethargic . I had looked at the peripheral smear when she was in the ER ans there was a marked leukamoid reaction , with leukocytosis, with a shift to the left , but no blasts. Does not smoke or drink Mother had a autoimmune disorder as well with a stroke maternal grandfather had a lymphoma, maternal grandmother had SLE Past Patient History - Past Medical History & Family History Past Medical History?: Yes - Past Social History Smoking Status: Never Smoked Home Situation {Lives}: With Family - CARDIAC Hx Hypertension: Yes - PULMONARY Hx Respiratory Disorders: No - NEUROLOGICAL Hx Meningitis: Yes Hx Migraine: Yes - HEENT Hx HEENT Problems: No - RENAL Hx Chronic Kidney Disease: Yes (LUPUS NEPHRITIS) - ENDOCRINE/METABOLIC Hx Endocrine Disorders: (Lupus) Hx Systemic Lupus Erythematosus: Yes - HEMATOLOGICAL/ONCOLOGICAL Hx Blood Transfusions: Yes Hx Blood Transfusion Reaction: No Other/Comment: pt has hx of lupus - INTEGUMENTARY Hx Dermatological Problems: Yes (LUPUS SUN RASH) - MUSCULOSKELETAL/RHEUMATOLOGICAL Hx Falls: No Hx Fractures: Yes (METARSAL LEFT FOOT/STRESS FX. /RT WRIST) - GASTROINTESTINAL Hx Gastrointestinal Disorders: No - GENITOURINARY/GYNECOLOGICAL Hx Genitourinary Disorders: Yes (LUPUS NEPHRITIS) - PSYCHIATRIC Hx Psychophysiologic Disorder: Yes Hx Depression: Yes Hx Substance Use: No - SURGICAL HISTORY Hx Cholecystectomy: Yes - ANESTHESIA Hx Anesthesia: Yes Hx Anesthesia Reactions: No Meds Allergies/Adverse Reactions: Allergies Allergy/AdvReac Type Severity Reaction Status Date / Time latex Allergy RASH Verified 03/29/17 22:10 Penicillins Allergy RASH Verified 03/29/17 22:10 Quinolones Allergy ANAPHYLAXIS Verified 03/29/17 22:10 - Medications Medications: Current Medications Aspirin (Aspirin) 325 mg NG DAILY [facility] Clopidogrel Bisulfate (Plavix) 75 mg PO DAILY [facility] Dexamethasone (Decadron Inj) 10 mg IV Q12H [facility] Last Admin: 03/31/17 09:44 Dose: 10 mg Heparin Sodium (Porcine) (Heparin) 5,000 units SC Q12 HECTOR PRN Reason: Protocol Last Admin: 03/30/17 20:54 Dose: 5,000 units Metronidazole (Flagyl 500mg/100ml Ns) 100 mls @ 100 mls/hr IVPB Q8 HECTOR PRN Reason: Protocol Last Admin: 03/31/17 09:45 Dose: 100 mls/hr Meropenem 500 mg/ Sodium (Chloride) 50 mls @ 50 mls/hr IVPB Q8 HECTOR PRN Reason: Protocol Last Admin: 03/31/17 09:52 Dose: 50 mls/hr Linezolid (Zyvox 600mg/300ml D5w) 600 mg in 300 mls @ 300 mls/hr IVPB Q12 HECTOR PRN Reason: Protocol Last Admin: 03/31/17 09:55 Dose: 300 mls/hr Propofol (Diprivan) 1,000 mg in 100 mls @ 1.905 mls/hr IV .Q24H HECTOR; 5 MCG/KG/ MIN PRN Reason: Protocol Stop: 03/31/17 17:21 Last Admin: 03/30/17 14:10 Dose: 5 mcg/kg/min, 1.905 mls/hr Sodium Bicarbonate 50 meq/ (Dextrose) 1,050 mls @ 125 mls/hr IV .Q8H24M [facility]ECTOR Stop: 04/01/17 09:06 Last Admin: 03/31/17 09:54 Dose: 125 mls/hr Morphine Sulfate (Morphine) 2 mg IVP Q6 PRN PRN Reason: Pain, moderate (4-7) Mycophenolate Mofetil (Cellcept Cap) 500 mg PO BID [facility] Ondansetron HCl (Zofran Inj) 4 mg IVP Q6 PRN PRN Reason: Nausea/Vomiting Pantoprazole Sodium (Protonix Inj) 40 mg IVP DAILY [facility] Last Admin: 03/31/17 09:54 Dose: 40 mg Physical Exam - Additional Findings Additional findings: physical exam;Very lethargic, responds to pressure and painful stimuli. Neck;Supple, no adenopathy Chest; Clear. no rales or rhonchi Heart: RSR, no murmur Abdl soft no mass ( splenectomy done several yrs ago) Results - Vital Signs Recent Vital Signs: Last Vital Signs Temp 98.7 F 03/31/17 08:00 Pulse 119 H 03/31/17 08:00 Resp 18 03/31/17 08:00 BP 95/66 L 03/31/17 08:00 Pulse Ox 100 03/31/17 08:00 - Labs Result Diagrams: 03/31/17 04:30 03/31/17 04:30 Labs: Laboratory Results - last 24 hr 03/30/17 03/30/17 03/30/17 04:05 09:55 15:00 WBC 49.1 H* RBC 3.98 Hgb 10.8 L Hct 34.8 MCV 87.4 MCH 27.0 MCHC 30.9 L RDW 17.5 H Plt Count 200 MPV 10.3 Neut % (Auto) 81.7 H Lymph % (Auto) 0.9 L Pitt % (Auto) 16.3 H Eos % (Auto) 0.6 Baso % (Auto) 0.5 Neut # 40.1 H Lymph # 0.5 L Pitt # 8.0 H Eos # 0.3 Baso # 0.2 ESR 41 H pCO2 pO2 HCO3 ABG pH ABG Total CO2 ABG O2 Saturation ABG O2 Content ABG Base Excess ABG Hemoglobin ABG Carboxyhemoglobin POC ABG HHb (Measured) ABG Methemoglobin ABG O2 Capacity Chauncey Test A-a O2 Difference Hgb O2 Saturation Vent Mode Mechanical Rate FiO2 Tidal Volume PEEP Crit Value Called To Crit Value Called By Crit Value Read Back Blood Gas Notified Time Sodium Potassium Chloride Carbon Dioxide Anion Gap BUN Creatinine Est GFR ( Amer) Est GFR (Non-Af Amer) POC Glucose (mg/dL) 240 H Random Glucose Lactic Acid Calcium Phosphorus Magnesium Total Bilirubin AST ALT Alkaline Phosphatase Ammonia Lactate Dehydrogenase Total Creatine Kinase Total Protein Albumin Globulin Albumin/Globulin Ratio 25-OH Vitamin D Total Procalcitonin Urine Color Yellow Urine Clarity Cloudy Urine pH 5.0 Ur Specific Garvin 1.012 Urine Protein 100 Urine Glucose (UA) Neg Urine Ketones Negative Urine Blood Moderate Urine Nitrate Negative Urine Bilirubin Negative Urine Urobilinogen 0.2-1.0 Ur Leukocyte Esterase Trace Urine RBC (Auto) 3 Urine Microscopic WBC 6 H Ur Squamous Epith Cells 1 Amorphous Sediment Rare H Urine Bacteria Rare Urine Opiates Screen Urine Methadone Screen Acetaminophen Ur Barbiturates Screen Ur Phencyclidine Scrn Ur Amphetamines Screen U Benzodiazepines Scrn U Oth Cocaine Metabols U Cannabinoids Screen Alcohol, Quantitative Complement C3 Complement C4 BK Virus Spec Source BK Virus DNA Qual PCR TRAVIS Virus DNA (PCR) 03/30/17 03/30/17 03/30/17 15:00 15:00 15:00 WBC RBC Hgb Hct MCV MCH MCHC RDW Plt Count MPV Neut % (Auto) Lymph % (Auto) Pitt % (Auto) Eos % (Auto) Baso % (Auto) Neut # Lymph # Pitt # Eos # Baso # ESR pCO2 pO2 HCO3 ABG pH ABG Total CO2 ABG O2 Saturation ABG O2 Content ABG Base Excess ABG Hemoglobin ABG Carboxyhemoglobin POC ABG HHb (Measured) ABG Methemoglobin ABG O2 Capacity Chauncey Test A-a O2 Difference Hgb O2 Saturation Vent Mode Mechanical Rate FiO2 Tidal Volume PEEP Crit Value Called To Crit Value Called By Crit Value Read Back Blood Gas Notified Time Sodium 139 Potassium 5.7 H Chloride 113 H Carbon Dioxide 10 L* Anion Gap 22 H BUN 57 H Creatinine 4.6 H Est GFR ( Amer) 13 Est GFR (Non-Af Amer) 11 POC Glucose (mg/dL) Random Glucose 163 H Lactic Acid 3.9 H Calcium 6.2 L Phosphorus 8.7 H Magnesium 1.9 Total Bilirubin 0.2 AST 114 H D ALT 60 H D Alkaline Phosphatase 91 Ammonia Lactate Dehydrogenase 1567 H Total Creatine Kinase 156 H Total Protein 6.1 L Albumin 2.7 L Globulin 3.4 Albumin/Globulin Ratio 0.8 L 25-OH Vitamin D Total Procalcitonin 127.48 H Urine Color Urine Clarity Urine pH Ur Specific Garvin Urine Protein Urine Glucose (UA) Urine Ketones Urine Blood Urine Nitrate Urine Bilirubin Urine Urobilinogen Ur Leukocyte Esterase Urine RBC (Auto) Urine Microscopic WBC Ur Squamous Epith Cells Amorphous Sediment Urine Bacteria Urine Opiates Screen Urine Methadone Screen Acetaminophen Ur Barbiturates Screen Ur Phencyclidine Scrn Ur Amphetamines Screen U Benzodiazepines Scrn U Oth Cocaine Metabols U Cannabinoids Screen Alcohol, Quantitative < 10 Complement C3 Complement C4 BK Virus Spec Source BK Virus DNA Qual PCR TRAVIS Virus DNA (PCR) 03/30/17 03/30/17 03/30/17 15:00 15:00 15:00 WBC RBC Hgb Hct MCV MCH MCHC RDW Plt Count MPV Neut % (Auto) Lymph % (Auto) Pitt % (Auto) Eos % (Auto) Baso % (Auto) Neut # Lymph # Pitt # Eos # Baso # ESR pCO2 pO2 HCO3 ABG pH ABG Total CO2 ABG O2 Saturation ABG O2 Content ABG Base Excess ABG Hemoglobin ABG Carboxyhemoglobin POC ABG HHb (Measured) ABG Methemoglobin ABG O2 Capacity Chauncey Test A-a O2 Difference Hgb O2 Saturation Vent Mode Mechanical Rate FiO2 Tidal Volume PEEP Crit Value Called To Crit Value Called By Crit Value Read Back Blood Gas Notified Time Sodium Potassium Chloride Carbon Dioxide Anion Gap BUN Creatinine Est GFR ( Amer) Est GFR (Non-Af Amer) POC Glucose (mg/dL) Random Glucose Lactic Acid Calcium Phosphorus Magnesium Total Bilirubin AST ALT Alkaline Phosphatase Ammonia Lactate Dehydrogenase Total Creatine Kinase Total Protein Albumin Globulin Albumin/Globulin Ratio 25-OH Vitamin D Total 14.7 L Procalcitonin Urine Color Urine Clarity Urine pH Ur Specific Garvin Urine Protein Urine Glucose (UA) Urine Ketones Urine Blood Urine Nitrate Urine Bilirubin Urine Urobilinogen Ur Leukocyte Esterase Urine RBC (Auto) Urine Microscopic WBC Ur Squamous Epith Cells Amorphous Sediment Urine Bacteria Urine Opiates Screen Urine Methadone Screen Acetaminophen Ur Barbiturates Screen Ur Phencyclidine Scrn Ur Amphetamines Screen U Benzodiazepines Scrn U Oth Cocaine Metabols U Cannabinoids Screen Alcohol, Quantitative Complement C3 71.0 L Complement C4 33.3 BK Virus Spec Source Blood BK Virus DNA Qual PCR TNP TRAVIS Virus DNA (PCR) TNP 03/30/17 03/30/17 03/30/17 15:00 15:00 15:06 WBC RBC Hgb Hct MCV MCH MCHC RDW Plt Count MPV Neut % (Auto) Lymph % (Auto) Pitt % (Auto) Eos % (Auto) Baso % (Auto) Neut # Lymph # Pitt # Eos # Baso # ESR pCO2 34 L pO2 207 H HCO3 8.3 L* ABG pH 7.01 L* ABG Total CO2 9.6 L ABG O2 Saturation 99.8 H ABG O2 Content 14.4 L ABG Base Excess -21.3 L ABG Hemoglobin 10.3 L ABG Carboxyhemoglobin 1.4 POC ABG HHb (Measured) 0.2 ABG Methemoglobin 2.5 ABG O2 Capacity 14.4 L Chauncey Test Yes A-a O2 Difference 464.0 Hgb O2 Saturation 95.8 Vent Mode Mechanical Rate 14 FiO2 100.0 Tidal Volume 450 PEEP 5 Crit Value Called To Dr cynthia chaves Crit Value Called By Marty Crit Value Read Back Y Blood Gas Notified Time 1614 Sodium Potassium Chloride Carbon Dioxide Anion Gap BUN Creatinine Est GFR ( Amer) Est GFR (Non-Af Amer) POC Glucose (mg/dL) Random Glucose Lactic Acid Calcium Phosphorus Magnesium Total Bilirubin AST ALT Alkaline Phosphatase Ammonia 33 Lactate Dehydrogenase Total Creatine Kinase Total Protein Albumin Globulin Albumin/Globulin Ratio 25-OH Vitamin D Total Procalcitonin Urine Color Urine Clarity Urine pH Ur Specific Garvin Urine Protein Urine Glucose (UA) Urine Ketones Urine Blood Urine Nitrate Urine Bilirubin Urine Urobilinogen Ur Leukocyte Esterase Urine RBC (Auto) Urine Microscopic WBC Ur Squamous Epith Cells Amorphous Sediment Urine Bacteria Urine Opiates Screen Urine Methadone Screen Acetaminophen < 10.0 L Ur Barbiturates Screen Ur Phencyclidine Scrn Ur Amphetamines Screen U Benzodiazepines Scrn U Oth Cocaine Metabols U Cannabinoids Screen Alcohol, Quantitative Complement C3 Complement C4 BK Virus Spec Source BK Virus DNA Qual PCR TRAVIS Virus DNA (PCR) 03/30/17 03/31/17 03/31/17 16:00 04:30 04:30 WBC 49.4 H* RBC 3.32 L Hgb 8.7 L D Hct 28.4 L MCV 85.5 MCH 26.1 L MCHC 30.5 L RDW 17.3 H Plt Count 121 L D MPV Neut % (Auto) Lymph % (Auto) Pitt % (Auto) Eos % (Auto) Baso % (Auto) Neut # Lymph # Pitt # Eos # Baso # ESR pCO2 pO2 HCO3 ABG pH ABG Total CO2 ABG O2 Saturation ABG O2 Content ABG Base Excess ABG Hemoglobin ABG Carboxyhemoglobin POC ABG HHb (Measured) ABG Methemoglobin ABG O2 Capacity Chauncey Test A-a O2 Difference Hgb O2 Saturation Vent Mode Mechanical Rate FiO2 Tidal Volume PEEP Crit Value Called To Crit Value Called By Crit Value Read Back Blood Gas Notified Time Sodium 138 Potassium 4.9 Chloride 111 H Carbon Dioxide 11 L* Anion Gap 21 H BUN 63 H Creatinine 4.8 H Est GFR ( Amer) 12 Est GFR (Non-Af Amer) 10 POC Glucose (mg/dL) Random Glucose 204 H Lactic Acid Calcium 5.3 L* Phosphorus Magnesium Total Bilirubin 0.4 AST 78 H D ALT 58 H Alkaline Phosphatase 100 Ammonia Lactate Dehydrogenase Total Creatine Kinase Total Protein 4.9 L Albumin 2.1 L D Globulin 2.9 Albumin/Globulin Ratio 0.7 L 25-OH Vitamin D Total Procalcitonin Urine Color Urine Clarity Urine pH Ur Specific Garvin Urine Protein Urine Glucose (UA) Urine Ketones Urine Blood Urine Nitrate Urine Bilirubin Urine Urobilinogen Ur Leukocyte Esterase Urine RBC (Auto) Urine Microscopic WBC Ur Squamous Epith Cells Amorphous Sediment Urine Bacteria Urine Opiates Screen Positive H Urine Methadone Screen Negative Acetaminophen Ur Barbiturates Screen Negative Ur Phencyclidine Scrn Negative Ur Amphetamines Screen Negative U Benzodiazepines Scrn Negative U Oth Cocaine Metabols Negative U Cannabinoids Screen Negative Alcohol, Quantitative Complement C3 Complement C4 BK Virus Spec Source BK Virus DNA Qual PCR TRAVIS Virus DNA (PCR) 03/31/17 05:07 WBC RBC Hgb Hct MCV MCH MCHC RDW Plt Count MPV Neut % (Auto) Lymph % (Auto) Pitt % (Auto) Eos % (Auto) Baso % (Auto) Neut # Lymph # Pitt # Eos # Baso # ESR pCO2 21 L pO2 108 H HCO3 12.4 L ABG pH 7.26 L ABG Total CO2 10.0 L ABG O2 Saturation 99.2 H ABG O2 Content 12.5 L ABG Base Excess -16.0 L ABG Hemoglobin 9.2 L ABG Carboxyhemoglobin 1.4 POC ABG HHb (Measured) 0.8 ABG Methemoglobin 2.7 ABG O2 Capacity 12.6 L Chauncey Test Yes A-a O2 Difference 294.0 Hgb O2 Saturation 95.1 Vent Mode A/c Mechanical Rate 14 FiO2 60.0 Tidal Volume 450 PEEP 5 Crit Value Called To Crit Value Called By Crit Value Read Back Blood Gas Notified Time Sodium Potassium Chloride Carbon Dioxide Anion Gap BUN Creatinine Est GFR ( Amer) Est GFR (Non-Af Amer) POC Glucose (mg/dL) Random Glucose Lactic Acid Calcium Phosphorus Magnesium Total Bilirubin AST ALT Alkaline Phosphatase Ammonia Lactate Dehydrogenase Total Creatine Kinase Total Protein Albumin Globulin Albumin/Globulin Ratio 25-OH Vitamin D Total Procalcitonin Urine Color Urine Clarity Urine pH Ur Specific Garvin Urine Protein Urine Glucose (UA) Urine Ketones Urine Blood Urine Nitrate Urine Bilirubin Urine Urobilinogen Ur Leukocyte Esterase Urine RBC (Auto) Urine Microscopic WBC Ur Squamous Epith Cells Amorphous Sediment Urine Bacteria Urine Opiates Screen Urine Methadone Screen Acetaminophen Ur Barbiturates Screen Ur Phencyclidine Scrn Ur Amphetamines Screen U Benzodiazepines Scrn U Oth Cocaine Metabols U Cannabinoids Screen Alcohol, Quantitative Complement C3 Complement C4 BK Virus Spec Source BK Virus DNA Qual PCR TRAVIS Virus DNA (PCR) Assessment & Plan - Assessment and Plan (Free Text) Assessment: Impression; Acublasts.te leukocytosis with a shift to the left but no blasts. ? Chronic myeloid leukemia/ Have ordered a LAP. Plan: Plan; If the pt does have a CML then I would recommend a leukopheresis . Otherwise will follow the cbc.
--- NOTE | 2017-03-31 10:38 | MRI ---
PROCEDURE: MRI BRAIN WITHOUT CONTRAST HISTORY: Altered Mental Status COMPARISON: Noncontrast head CT from 03/30/2017 TECHNIQUE: Multiplanar, multisequence MR images of the brain were obtained without intravenous contrast enhancement. FINDINGS: HEMORRHAGE: None DWI: There are few small foci of restricted diffusion in the high right parietal and left frontal cortex. BRAIN PARENCHYMA: There is focal cystic encephalomalacia and gliosis in the right parietal lobe and anterior temporal lobes, basal ganglia, caudate head and anterior limb of internal capsule with volume loss and ex vacuo dilatation of the right lateral ventricle. There is wallerian degeneration of the pyramidal tract. There is also apparent diffuse increased FLAIR signal in the cerebral and cerebellar sulci. VENTRICLES: There is mild age-related global parenchymal volume loss and proportionate enlargement of the ventricles and cortical sulci. CRANIUM: The skull base and calvarium are normal. The midline sagittal structures are normal. ORBITS: Grossly unremarkable. PARANASAL SINUSES/MASTOIDS: There is moderate mucosal thickening in the paranasal sinuses, fluid level in the left maxillary sinus and fluid in the mastoid air cells. VASCULAR SYSTEM: Skull base flow voids intact. OTHER FINDINGS: None. IMPRESSION: 1. Suspect few tiny embolic infarctions in the right anterior parietal and left frontal cortex. 2. Remote right MCA territory infarctions with resultant cystic encephalomalacia and gliosis in the right parietal, anterior temporal lobes, basal ganglia, anterior limb of internal capsule and caudate head with volume loss and ex vacuo dilatation of the right lateral ventricle. 3. Diffuse increased FLAIR signal in the cortical and cerebella sulci is nonspecific and could be artifactual, the other differential consideration includes proteinaceous CSF and nonspecific meningitis, clinical correlation and follow-up is advised. A preliminary report was provided by [facility].
[2017-03-31 11:07] LABS: CREATININE, RANDOM URINE 64.9 mg/dL
--- NOTE | 2017-03-31 12:03 | RAD ---
HISTORY: Intubated. Portable study 04:43. COMPARISON: March 30, 2017. Time of the most recent examination: 16:40. FINDINGS: LUNGS: No active pulmonary disease. PLEURA: No significant pleural effusion identified, no pneumothorax apparent. CARDIOVASCULAR: No radiographic findings to suggest acute or significant cardiovascular disease. OSSEOUS STRUCTURES: No significant abnormalities. VISUALIZED UPPER ABDOMEN: Normal. OTHER FINDINGS: Satisfactory and stable position of endotracheal tube. Recently introduced nasogastric tube in satisfactory position decompressed in the stomach. The tip is in the vicinity of the antrum/pylorus. IMPRESSION: No active disease. Satisfactory position of recently placed support apparatus. No significant interval change compared to the prior examination(s).
[2017-03-31 12:12] LABS: PARTIAL THROMBOPLASTIN TIME 35.2 Seconds (25.6-37.1)
[2017-03-31 12:19] VITALS: BP 88/44; PULSE 113; TEMP 97.7
--- NOTE | 2017-03-31 12:20 | CP.PCM.PN ---
Subjective - Date & Time of Evaluation Date of Evaluation: 03/31/17 Time of Evaluation: 13:00 - Subjective Subjective: ID note- Pt. seen and examined today in ICU. pt. remains intubated and lethargic. Objective - Vital Signs/Intake and Output Vital Signs (last 24 hours): Temp Pulse Resp BP Pulse Ox 97.7 F 113 H 18 88/44 L 100 03/31/17 12:00 03/31/17 12:00 03/31/17 12:00 03/31/17 12:00 03/31/17 12:00 Intake and Output: 03/31/17 03/31/17 06:59 18:59 Intake Total 1373 Output Total 400 Balance 973 - Medications Medications: Current Medications Aspirin (Aspirin) 325 mg NG DAILY [facility] Clopidogrel Bisulfate (Plavix) 75 mg PO DAILY [facility] Dexamethasone (Decadron Inj) 10 mg IV Q12H [facility] Last Admin: 03/31/17 09:44 Dose: 10 mg Heparin Sodium (Porcine) (Heparin) 5,000 units SC Q12 [facility]ECTOR PRN Reason: Protocol Last Admin: 03/30/17 20:54 Dose: 5,000 units Metronidazole (Flagyl 500mg/100ml Ns) 100 mls @ 100 mls/hr IVPB Q8 [facility]ECTOR PRN Reason: Protocol Last Admin: 03/31/17 09:45 Dose: 100 mls/hr Meropenem 500 mg/ Sodium (Chloride) 50 mls @ 50 mls/hr IVPB Q8 HECTOR PRN Reason: Protocol Last Admin: 03/31/17 09:52 Dose: 50 mls/hr Linezolid (Zyvox 600mg/300ml D5w) 600 mg in 300 mls @ 300 mls/hr IVPB Q12 [facility]ECTOR PRN Reason: Protocol Last Admin: 03/31/17 09:55 Dose: 300 mls/hr Propofol (Diprivan) 1,000 mg in 100 mls @ 1.905 mls/hr IV .Q24H HECTOR; 5 MCG/KG/ MIN PRN Reason: Protocol Stop: 03/31/17 17:21 Last Admin: 03/30/17 14:10 Dose: 5 mcg/kg/min, 1.905 mls/hr Sodium Bicarbonate 50 meq/ (Dextrose) 1,050 mls @ 125 mls/hr IV .Q8H24M [facility]ECTOR Stop: 04/01/17 09:06 Last Admin: 03/31/17 09:54 Dose: 125 mls/hr Morphine Sulfate (Morphine) 2 mg IVP Q6 PRN PRN Reason: Pain, moderate (4-7) Mycophenolate Mofetil (Cellcept Cap) 500 mg PO BID [facility] Ondansetron HCl (Zofran Inj) 4 mg IVP Q6 PRN PRN Reason: Nausea/Vomiting Oxymetazoline HCl (Nasal Decongestant 15 Ml) 1 spr NS Q12 PRN PRN Reason: Nasal congestion Pantoprazole Sodium (Protonix Inj) 40 mg IVP DAILY [facility] Last Admin: 03/31/17 09:54 Dose: 40 mg - Labs Labs: - Additional Findings Additional findings: - Constitutional Additional comments: lethargic and AMS - Head Exam Head Exam: ATRAUMATIC - Eye Exam Eye Exam: PERRL - ENT Exam Additional comments: ET tube in place - Neck Exam Additional comments: supple - Respiratory Exam Respiratory Exam: , breathsounds heard b/l - Cardiovascular Exam Cardiovascular Exam: Tachycardia, +S1, +S2 - GI/Abdominal Exam GI & Abdominal Exam: Normal Bowel Sounds, Soft Additional comments: NT, ND - Extremities Exam Extremities exam: Positive for: normal inspection Additional comments: no edema b/l LE - Neurological Exam Neurological exam: Altered - Skin Additional comments: erythematous scaly fungal tinea like rash under both breast b/l no other rash seen Laboratory Results - last 72 hr 03/29/17 03/30/17 03/30/17 23:59 00:55 01:00 WBC 40.4 H* RBC 3.87 Hgb 10.3 L Hct 33.2 L MCV 85.8 MCH 26.7 L MCHC 31.2 L RDW 16.5 H Plt Count 239 MPV 9.7 Neut % (Auto) 96.1 H Lymph % (Auto) 0.7 L [place] % (Auto) 3.0 Eos % (Auto) 0.0 Baso % (Auto) 0.2 Neut # 38.8 H Lymph # 0.3 L [place] # 1.2 H Eos # 0.0 Baso # 0.1 Neutrophils % (Manual) 78 H Band Neutrophils % 8 H Lymphocytes % (Manual) 1 L Monocytes % (Manual) 1 Metamyelocytes % 8 H Myelocytes % 4 H Platelet Estimate Normal Hypochromasia (manual) Slight Anisocytosis (manual) Slight Target Cells Slight Ovalocytes Slight Acanthocytes (Spur) Slight ESR PT INR APTT pCO2 pO2 HCO3 ABG pH ABG Total CO2 ABG O2 Saturation ABG O2 Content ABG Base Excess ABG Hemoglobin ABG Carboxyhemoglobin POC ABG HHb (Measured) ABG Methemoglobin ABG O2 Capacity [place] Test A-a O2 Difference Hgb O2 Saturation Vent Mode Mechanical Rate FiO2 Tidal Volume PEEP Crit Value Called To Crit Value Called By Crit Value Read Back Blood Gas Notified Time Sodium 136 Potassium 5.1 H Chloride 115 H Carbon Dioxide 10 L* D Anion Gap 16 BUN 52 H Creatinine 4.2 H Est GFR ( Amer) 14 Est GFR (Non-Af Amer) 12 POC Glucose (mg/dL) Random Glucose 95 Lactic Acid 1.3 Calcium 6.2 L Phosphorus 6.2 H Magnesium 0.9 L* Total Bilirubin 0.1 L AST 79 H ALT 48 Alkaline Phosphatase 53 Ammonia Lactate Dehydrogenase Total Creatine Kinase Total Protein 5.4 L Albumin 2.4 L Globulin 3.0 Albumin/Globulin Ratio 0.8 L Lipase 141 25-OH Vitamin D Total Procalcitonin Urine Color Urine Clarity Urine pH Ur Specific [place] Urine Protein Urine Glucose (UA) Urine Ketones Urine Blood Urine Nitrate Urine Bilirubin Urine Urobilinogen Ur Leukocyte Esterase Urine RBC (Auto) Urine Microscopic WBC Ur Squamous Epith Cells Amorphous Sediment Urine Bacteria Urine Osmolality Ur Random Creatinine U Random Total Protein Ur Random Sodium Ur Random Potassium Urine Opiates Screen Urine Methadone Screen Acetaminophen Ur Barbiturates Screen Ur Phencyclidine Scrn Ur Amphetamines Screen U Benzodiazepines Scrn U Oth Cocaine Metabols U Cannabinoids Screen Alcohol, Quantitative Complement C3 Complement C4 Influenza Typ A,B (EIA) BK Virus Spec Source BK Virus DNA Qual PCR [place] Virus DNA (PCR) 03/30/17 03/30/17 03/30/17 02:13 02:31 03:41 WBC RBC Hgb Hct MCV MCH MCHC RDW Plt Count MPV Neut % (Auto) Lymph % (Auto) [place] % (Auto) Eos % (Auto) Baso % (Auto) Neut # Lymph # [place] # Eos # Baso # Neutrophils % (Manual) Band Neutrophils % Lymphocytes % (Manual) Monocytes % (Manual) Metamyelocytes % Myelocytes % Platelet Estimate Hypochromasia (manual) Anisocytosis (manual) Target Cells Ovalocytes Acanthocytes (Spur) ESR PT INR APTT pCO2 pO2 HCO3 ABG pH ABG Total CO2 ABG O2 Saturation ABG O2 Content ABG Base Excess ABG Hemoglobin ABG Carboxyhemoglobin POC ABG HHb (Measured) ABG Methemoglobin ABG O2 Capacity [place] Test A-a O2 Difference Hgb O2 Saturation Vent Mode Mechanical Rate FiO2 Tidal Volume PEEP Crit Value Called To Crit Value Called By Crit Value Read Back Blood Gas Notified Time Sodium Potassium Chloride Carbon Dioxide Anion Gap BUN Creatinine Est GFR ( Amer) Est GFR (Non-Af Amer) POC Glucose (mg/dL) 72 281 H Random Glucose Lactic Acid Calcium Phosphorus Magnesium Total Bilirubin AST ALT Alkaline Phosphatase Ammonia Lactate Dehydrogenase Total Creatine Kinase Total Protein Albumin Globulin Albumin/Globulin Ratio Lipase 25-OH Vitamin D Total Procalcitonin Urine Color Urine Clarity Urine pH Ur Specific [place] Urine Protein Urine Glucose (UA) Urine Ketones Urine Blood Urine Nitrate Urine Bilirubin Urine Urobilinogen Ur Leukocyte Esterase Urine RBC (Auto) Urine Microscopic WBC Ur Squamous Epith Cells Amorphous Sediment Urine Bacteria Urine Osmolality Ur Random Creatinine U Random Total Protein Ur Random Sodium Ur Random Potassium Urine Opiates Screen Urine Methadone Screen Acetaminophen Ur Barbiturates Screen Ur Phencyclidine Scrn Ur Amphetamines Screen U Benzodiazepines Scrn U Oth Cocaine Metabols U Cannabinoids Screen Alcohol, Quantitative Complement C3 Complement C4 Influenza Typ A,B (EIA) Negative for flu a/b BK Virus Spec Source BK Virus DNA Qual PCR [place] Virus DNA (PCR) 03/30/17 03/30/17 03/30/17 03:44 04:05 09:55 WBC RBC Hgb Hct MCV MCH MCHC RDW Plt Count MPV Neut % (Auto) Lymph % (Auto) [place] % (Auto) Eos % (Auto) Baso % (Auto) Neut # Lymph # [place] # Eos # Baso # Neutrophils % (Manual) Band Neutrophils % Lymphocytes % (Manual) Monocytes % (Manual) Metamyelocytes % Myelocytes % Platelet Estimate Hypochromasia (manual) Anisocytosis (manual) Target Cells Ovalocytes Acanthocytes (Spur) ESR PT INR APTT pCO2 pO2 HCO3 ABG pH ABG Total CO2 ABG O2 Saturation ABG O2 Content ABG Base Excess ABG Hemoglobin ABG Carboxyhemoglobin POC ABG HHb (Measured) ABG Methemoglobin ABG O2 Capacity [place] Test A-a O2 Difference Hgb O2 Saturation Vent Mode Mechanical Rate FiO2 Tidal Volume PEEP Crit Value Called To Crit Value Called By Crit Value Read Back Blood Gas Notified Time Sodium Potassium Chloride Carbon Dioxide Anion Gap BUN Creatinine Est GFR ( Amer) Est GFR (Non-Af Amer) POC Glucose (mg/dL) 240 H Random Glucose Lactic Acid Calcium Phosphorus Magnesium Total Bilirubin AST ALT Alkaline Phosphatase Ammonia Lactate Dehydrogenase Total Creatine Kinase 64 Total Protein Albumin Globulin Albumin/Globulin Ratio Lipase 25-OH Vitamin D Total Procalcitonin Urine Color Yellow Urine Clarity Cloudy Urine pH 5.0 Ur Specific [place] 1.012 Urine Protein 100 Urine Glucose (UA) Neg Urine Ketones Negative Urine Blood Moderate Urine Nitrate Negative Urine Bilirubin Negative Urine Urobilinogen 0.2-1.0 Ur Leukocyte Esterase Trace Urine RBC (Auto) 3 Urine Microscopic WBC 6 H Ur Squamous Epith Cells 1 Amorphous Sediment Rare H Urine Bacteria Rare Urine Osmolality Ur Random Creatinine U Random Total Protein Ur Random Sodium Ur Random Potassium Urine Opiates Screen Urine Methadone Screen Acetaminophen Ur Barbiturates Screen Ur Phencyclidine Scrn Ur Amphetamines Screen U Benzodiazepines Scrn U Oth Cocaine Metabols U Cannabinoids Screen Alcohol, Quantitative Complement C3 Complement C4 Influenza Typ A,B (EIA) BK Virus Spec Source BK Virus DNA Qual PCR [place] Virus DNA (PCR) 03/30/17 03/30/17 03/30/17 15:00 15:00 15:00 WBC 49.1 H* RBC 3.98 Hgb 10.8 L Hct 34.8 MCV 87.4 MCH 27.0 MCHC 30.9 L RDW 17.5 H Plt Count 200 MPV 10.3 Neut % (Auto) 81.7 H Lymph % (Auto) 0.9 L [place] % (Auto) 16.3 H Eos % (Auto) 0.6 Baso % (Auto) 0.5 Neut # 40.1 H Lymph # 0.5 L [place] # 8.0 H Eos # 0.3 Baso # 0.2 Neutrophils % (Manual) Band Neutrophils % Lymphocytes % (Manual) Monocytes % (Manual) Metamyelocytes % Myelocytes % Platelet Estimate Hypochromasia (manual) Anisocytosis (manual) Target Cells Ovalocytes Acanthocytes (Spur) ESR 41 H PT INR APTT pCO2 pO2 HCO3 ABG pH ABG Total CO2 ABG O2 Saturation ABG O2 Content ABG Base Excess ABG Hemoglobin ABG Carboxyhemoglobin POC ABG HHb (Measured) ABG Methemoglobin ABG O2 Capacity [place] Test A-a O2 Difference Hgb O2 Saturation Vent Mode Mechanical Rate FiO2 Tidal Volume PEEP Crit Value Called To Crit Value Called By Crit Value Read Back Blood Gas Notified Time Sodium 139 Potassium 5.7 H Chloride 113 H Carbon Dioxide 10 L* Anion Gap 22 H BUN 57 H Creatinine 4.6 H Est GFR ( Amer) 13 Est GFR (Non-Af Amer) 11 POC Glucose (mg/dL) Random Glucose 163 H Lactic Acid 3.9 H Calcium 6.2 L Phosphorus 8.7 H Magnesium 1.9 Total Bilirubin 0.2 AST 114 H D ALT 60 H D Alkaline Phosphatase 91 Ammonia Lactate Dehydrogenase 1567 H Total Creatine Kinase 156 H Total Protein 6.1 L Albumin 2.7 L Globulin 3.4 Albumin/Globulin Ratio 0.8 L Lipase 25-OH Vitamin D Total Procalcitonin Urine Color Urine Clarity Urine pH Ur Specific [place] Urine Protein Urine Glucose (UA) Urine Ketones Urine Blood Urine Nitrate Urine Bilirubin Urine Urobilinogen Ur Leukocyte Esterase Urine RBC (Auto) Urine Microscopic WBC Ur Squamous Epith Cells Amorphous Sediment Urine Bacteria Urine Osmolality Ur Random Creatinine U Random Total Protein Ur Random Sodium Ur Random Potassium Urine Opiates Screen Urine Methadone Screen Acetaminophen Ur Barbiturates Screen Ur Phencyclidine Scrn Ur Amphetamines Screen U Benzodiazepines Scrn U Oth Cocaine Metabols U Cannabinoids Screen Alcohol, Quantitative < 10 Complement C3 Complement C4 Influenza Typ A,B (EIA) BK Virus Spec Source BK Virus DNA Qual PCR [place] Virus DNA (PCR) 03/30/17 03/30/17 03/30/17 15:00 15:00 15:00 WBC RBC Hgb Hct MCV MCH MCHC RDW Plt Count MPV Neut % (Auto) Lymph % (Auto) [place] % (Auto) Eos % (Auto) Baso % (Auto) Neut # Lymph # [place] # Eos # Baso # Neutrophils % (Manual) Band Neutrophils % Lymphocytes % (Manual) Monocytes % (Manual) Metamyelocytes % Myelocytes % Platelet Estimate Hypochromasia (manual) Anisocytosis (manual) Target Cells Ovalocytes Acanthocytes (Spur) ESR PT INR APTT pCO2 pO2 HCO3 ABG pH ABG Total CO2 ABG O2 Saturation ABG O2 Content ABG Base Excess ABG Hemoglobin ABG Carboxyhemoglobin POC ABG HHb (Measured) ABG Methemoglobin ABG O2 Capacity [place] Test A-a O2 Difference Hgb O2 Saturation Vent Mode Mechanical Rate FiO2 Tidal Volume PEEP Crit Value Called To Crit Value Called By Crit Value Read Back Blood Gas Notified Time Sodium Potassium Chloride Carbon Dioxide Anion Gap BUN Creatinine Est GFR ( Amer) Est GFR (Non-Af Amer) POC Glucose (mg/dL) Random Glucose Lactic Acid Calcium Phosphorus Magnesium Total Bilirubin AST ALT Alkaline Phosphatase Ammonia Lactate Dehydrogenase Total Creatine Kinase Total Protein Albumin Globulin Albumin/Globulin Ratio Lipase 25-OH Vitamin D Total 14.7 L Procalcitonin 127.48 H Urine Color Urine Clarity Urine pH Ur Specific [place] Urine Protein Urine Glucose (UA) Urine Ketones Urine Blood Urine Nitrate Urine Bilirubin Urine Urobilinogen Ur Leukocyte Esterase Urine RBC (Auto) Urine Microscopic WBC Ur Squamous Epith Cells Amorphous Sediment Urine Bacteria Urine Osmolality Ur Random Creatinine U Random Total Protein Ur Random Sodium Ur Random Potassium Urine Opiates Screen Urine Methadone Screen Acetaminophen Ur Barbiturates Screen Ur Phencyclidine Scrn Ur Amphetamines Screen U Benzodiazepines Scrn U Oth Cocaine Metabols U Cannabinoids Screen Alcohol, Quantitative Complement C3 Complement C4 Influenza Typ A,B (EIA) BK Virus Spec Source Blood BK Virus DNA Qual PCR TNP [place] Virus DNA (PCR) TNP 03/30/17 03/30/17 03/30/17 15:00 15:00 15:00 WBC RBC Hgb Hct MCV MCH MCHC RDW Plt Count MPV Neut % (Auto) Lymph % (Auto) [place] % (Auto) Eos % (Auto) Baso % (Auto) Neut # Lymph # [place] # Eos # Baso # Neutrophils % (Manual) Band Neutrophils % Lymphocytes % (Manual) Monocytes % (Manual) Metamyelocytes % Myelocytes % Platelet Estimate Hypochromasia (manual) Anisocytosis (manual) Target Cells Ovalocytes Acanthocytes (Spur) ESR PT INR APTT pCO2 pO2 HCO3 ABG pH ABG Total CO2 ABG O2 Saturation ABG O2 Content ABG Base Excess ABG Hemoglobin ABG Carboxyhemoglobin POC ABG HHb (Measured) ABG Methemoglobin ABG O2 Capacity [place] Test A-a O2 Difference Hgb O2 Saturation Vent Mode Mechanical Rate FiO2 Tidal Volume PEEP Crit Value Called To Crit Value Called By Crit Value Read Back Blood Gas Notified Time Sodium Potassium Chloride Carbon Dioxide Anion Gap BUN Creatinine Est GFR ( Amer) Est GFR (Non-Af Amer) POC Glucose (mg/dL) Random Glucose Lactic Acid Calcium Phosphorus Magnesium Total Bilirubin AST ALT Alkaline Phosphatase Ammonia 33 Lactate Dehydrogenase Total Creatine Kinase Total Protein Albumin Globulin Albumin/Globulin Ratio Lipase 25-OH Vitamin D Total Procalcitonin Urine Color Urine Clarity Urine pH Ur Specific [place] Urine Protein Urine Glucose (UA) Urine Ketones Urine Blood Urine Nitrate Urine Bilirubin Urine Urobilinogen Ur Leukocyte Esterase Urine RBC (Auto) Urine Microscopic WBC Ur Squamous Epith Cells Amorphous Sediment Urine Bacteria Urine Osmolality Ur Random Creatinine U Random Total Protein Ur Random Sodium Ur Random Potassium Urine Opiates Screen Urine Methadone Screen Acetaminophen < 10.0 L Ur Barbiturates Screen Ur Phencyclidine Scrn Ur Amphetamines Screen U Benzodiazepines Scrn U Oth Cocaine Metabols U Cannabinoids Screen Alcohol, Quantitative Complement C3 71.0 L Complement C4 33.3 Influenza Typ A,B (EIA) BK Virus Spec Source BK Virus DNA Qual PCR [place] Virus DNA (PCR) 03/30/17 03/30/17 03/31/17 15:06 16:00 04:30 WBC 49.4 H* RBC 3.32 L Hgb 8.7 L D Hct 28.4 L MCV 85.5 MCH 26.1 L MCHC 30.5 L RDW 17.3 H Plt Count 121 L D MPV Neut % (Auto) Lymph % (Auto) [place] % (Auto) Eos % (Auto) Baso % (Auto) Neut # Lymph # [place] # Eos # Baso # Neutrophils % (Manual) Band Neutrophils % Lymphocytes % (Manual) Monocytes % (Manual) Metamyelocytes % Myelocytes % Platelet Estimate Hypochromasia (manual) Anisocytosis (manual) Target Cells Ovalocytes Acanthocytes (Spur) ESR PT INR APTT pCO2 34 L pO2 207 H HCO3 8.3 L* ABG pH 7.01 L* ABG Total CO2 9.6 L ABG O2 Saturation 99.8 H ABG O2 Content 14.4 L ABG Base Excess -21.3 L ABG Hemoglobin 10.3 L ABG Carboxyhemoglobin 1.4 POC ABG HHb (Measured) 0.2 ABG Methemoglobin 2.5 ABG O2 Capacity 14.4 L [place] Test Yes A-a O2 Difference 464.0 Hgb O2 Saturation 95.8 Vent Mode Mechanical Rate 14 FiO2 100.0 Tidal Volume 450 PEEP 5 Crit Value Called To Dr cynthia chaves Crit Value Called By Marty Crit Value Read Back Y Blood Gas Notified Time 1614 Sodium Potassium Chloride Carbon Dioxide Anion Gap BUN Creatinine Est GFR ( Amer) Est GFR (Non-Af Amer) POC Glucose (mg/dL) Random Glucose Lactic Acid Calcium Phosphorus Magnesium Total Bilirubin AST ALT Alkaline Phosphatase Ammonia Lactate Dehydrogenase Total Creatine Kinase Total Protein Albumin Globulin Albumin/Globulin Ratio Lipase 25-OH Vitamin D Total Procalcitonin Urine Color Urine Clarity Urine pH Ur Specific [place] Urine Protein Urine Glucose (UA) Urine Ketones Urine Blood Urine Nitrate Urine Bilirubin Urine Urobilinogen Ur Leukocyte Esterase Urine RBC (Auto) Urine Microscopic WBC Ur Squamous Epith Cells Amorphous Sediment Urine Bacteria Urine Osmolality Ur Random Creatinine U Random Total Protein Ur Random Sodium Ur Random Potassium Urine Opiates Screen Positive H Urine Methadone Screen Negative Acetaminophen Ur Barbiturates Screen Negative Ur Phencyclidine Scrn Negative Ur Amphetamines Screen Negative U Benzodiazepines Scrn Negative U Oth Cocaine Metabols Negative U Cannabinoids Screen Negative Alcohol, Quantitative Complement C3 Complement C4 Influenza Typ A,B (EIA) BK Virus Spec Source BK Virus DNA Qual PCR [place] Virus DNA (PCR) 03/31/17 03/31/17 03/31/17 04:30 05:07 10:00 WBC RBC Hgb Hct MCV MCH MCHC RDW Plt Count MPV Neut % (Auto) Lymph % (Auto) [place] % (Auto) Eos % (Auto) Baso % (Auto) Neut # Lymph # [place] # Eos # Baso # Neutrophils % (Manual) Band Neutrophils % Lymphocytes % (Manual) Monocytes % (Manual) Metamyelocytes % Myelocytes % Platelet Estimate Hypochromasia (manual) Anisocytosis (manual) Target Cells Ovalocytes Acanthocytes (Spur) ESR PT INR APTT pCO2 21 L pO2 108 H HCO3 12.4 L ABG pH 7.26 L ABG Total CO2 10.0 L ABG O2 Saturation 99.2 H ABG O2 Content 12.5 L ABG Base Excess -16.0 L ABG Hemoglobin 9.2 L ABG Carboxyhemoglobin 1.4 POC ABG HHb (Measured) 0.8 ABG Methemoglobin 2.7 ABG O2 Capacity 12.6 L [place] Test Yes A-a O2 Difference 294.0 Hgb O2 Saturation 95.1 Vent Mode A/c Mechanical Rate 14 FiO2 60.0 Tidal Volume 450 PEEP 5 Crit Value Called To Crit Value Called By Crit Value Read Back Blood Gas Notified Time Sodium 138 Potassium 4.9 Chloride 111 H Carbon Dioxide 11 L* Anion Gap 21 H BUN 63 H Creatinine 4.8 H Est GFR ( Amer) 12 Est GFR (Non-Af Amer) 10 POC Glucose (mg/dL) Random Glucose 204 H Lactic Acid Calcium 5.3 L* Phosphorus Magnesium Total Bilirubin 0.4 AST 78 H D ALT 58 H Alkaline Phosphatase 100 Ammonia Lactate Dehydrogenase Total Creatine Kinase Total Protein 4.9 L Albumin 2.1 L D Globulin 2.9 Albumin/Globulin Ratio 0.7 L Lipase 25-OH Vitamin D Total Procalcitonin Urine Color Urine Clarity Urine pH Ur Specific [place] Urine Protein Urine Glucose (UA) Urine Ketones Urine Blood Urine Nitrate Urine Bilirubin Urine Urobilinogen Ur Leukocyte Esterase Urine RBC (Auto) Urine Microscopic WBC Ur Squamous Epith Cells Amorphous Sediment Urine Bacteria Urine Osmolality 280 L Ur Random Creatinine 64.9 U Random Total Protein 264.0 H Ur Random Sodium 51 Ur Random Potassium 39.7 Urine Opiates Screen Urine Methadone Screen Acetaminophen Ur Barbiturates Screen Ur Phencyclidine Scrn Ur Amphetamines Screen U Benzodiazepines Scrn U Oth Cocaine Metabols U Cannabinoids Screen Alcohol, Quantitative Complement C3 Complement C4 Influenza Typ A,B (EIA) BK Virus Spec Source BK Virus DNA Qual PCR [place] Virus DNA (PCR) 03/31/17 03/31/17 03/31/17 11:20 11:20 12:26 WBC 46.0 H* RBC 2.90 L Hgb 7.5 L Hct 24.4 L MCV 84.2 MCH 25.8 L MCHC 30.7 L RDW 16.7 H Plt Count 79 L D MPV Neut % (Auto) Lymph % (Auto) [place] % (Auto) Eos % (Auto) Baso % (Auto) Neut # Lymph # [place] # Eos # Baso # Neutrophils % (Manual) Band Neutrophils % Lymphocytes % (Manual) Monocytes % (Manual) Metamyelocytes % Myelocytes % Platelet Estimate Hypochromasia (manual) Anisocytosis (manual) Target Cells Ovalocytes Acanthocytes (Spur) ESR PT 12.9 INR 1.2 APTT 35.2 pCO2 pO2 HCO3 ABG pH ABG Total CO2 ABG O2 Saturation ABG O2 Content ABG Base Excess ABG Hemoglobin ABG Carboxyhemoglobin POC ABG HHb (Measured) ABG Methemoglobin ABG O2 Capacity [place] Test A-a O2 Difference Hgb O2 Saturation Vent Mode Mechanical Rate FiO2 Tidal Volume PEEP Crit Value Called To Crit Value Called By Crit Value Read Back Blood Gas Notified Time Sodium Potassium Chloride Carbon Dioxide Anion Gap BUN Creatinine Est GFR ( Amer) Est GFR (Non-Af Amer) POC Glucose (mg/dL) Random Glucose Lactic Acid Calcium Phosphorus Magnesium 1.7 Total Bilirubin AST ALT Alkaline Phosphatase Ammonia Lactate Dehydrogenase Total Creatine Kinase Total Protein Albumin Globulin Albumin/Globulin Ratio Lipase 25-OH Vitamin D Total Procalcitonin Urine Color Urine Clarity Urine pH Ur Specific [place] Urine Protein Urine Glucose (UA) Urine Ketones Urine Blood Urine Nitrate Urine Bilirubin Urine Urobilinogen Ur Leukocyte Esterase Urine RBC (Auto) Urine Microscopic WBC Ur Squamous Epith Cells Amorphous Sediment Urine Bacteria Urine Osmolality Ur Random Creatinine U Random Total Protein Ur Random Sodium Ur Random Potassium Urine Opiates Screen Urine Methadone Screen Acetaminophen Ur Barbiturates Screen Ur Phencyclidine Scrn Ur Amphetamines Screen U Benzodiazepines Scrn U Oth Cocaine Metabols U Cannabinoids Screen Alcohol, Quantitative Complement C3 Complement C4 Influenza Typ A,B (EIA) BK Virus Spec Source BK Virus DNA Qual PCR [place] Virus DNA (PCR) Microbiology 03/30/17 15:00 Blood-Venous S.aureus & Coag-Neg Staph PNA FISH - Preliminary 03/30/17 15:00 Blood-Venous Blood Culture - Preliminary Gram Positive Cocci 03/30/17 15:00 Blood-Venous Gram Stain - Final 03/30/17 15:00 Blood-Venous Blood Culture - Preliminary Gram Positive Cocci 03/30/17 15:00 Blood-Venous Gram Stain - Final Accession No. : [id number] Patient Name / ID : MEZHOUDI NEZHA / [id number] Exam Date : 03/31/2017 04:40:29 ( Approved ) Study Comment : Sex / Age : F / 37Y Creator : Willy Campuzano MD Dictator : Willy Campuzano MD Radiologic Technology Program Director : Stopper Setter : Willy Campuzano MD Approver2 : Report Date : 03/31/2017 11:57:33 My Comment : HISTORY: Intubated. Portable study 04:43. COMPARISON: March 30, 2017. Time of the most recent examination: 16:40. FINDINGS: LUNGS: No active pulmonary disease. PLEURA: No significant pleural effusion identified, no pneumothorax apparent. CARDIOVASCULAR: No radiographic findings to suggest acute or significant cardiovascular disease. OSSEOUS STRUCTURES: No significant abnormalities. VISUALIZED UPPER ABDOMEN: Normal. OTHER FINDINGS: Satisfactory and stable position of endotracheal tube. Recently introduced nasogastric tube in satisfactory position decompressed in the stomach. The tip is in the vicinity of the antrum/pylorus. IMPRESSION: No active disease. Satisfactory position of recently placed support apparatus. No significant interval change compared to the prior examination(s). Accession No. : [id number] Patient Name / ID : KAT GILMAN / [id number] Exam Date : 03/30/2017 18:16:12 ( Approved ) Study Comment : Sex / Age : F / 37Y Creator : Sinai Farrell MD Dictator : Sinai Farrell MD Radiologic Technology Program Director : Stopper Setter : Sinai Farrell MD Approver2 : Report Date : 03/31/2017 10:36:35 My Comment : PROCEDURE: MRI BRAIN WITHOUT CONTRAST HISTORY: Altered Mental Status COMPARISON: Noncontrast head CT from 03/30/2017 TECHNIQUE: Multiplanar, multisequence MR images of the brain were obtained without intravenous contrast enhancement. FINDINGS: HEMORRHAGE: None DWI: There are few small foci of restricted diffusion in the high right parietal and left frontal cortex. BRAIN PARENCHYMA: There is focal cystic encephalomalacia and gliosis in the right parietal lobe and anterior temporal lobes, basal ganglia, caudate head and anterior limb of internal capsule with volume loss and ex vacuo dilatation of the right lateral ventricle. There is wallerian degeneration of the pyramidal tract. There is also apparent diffuse increased FLAIR signal in the cerebral and cerebellar sulci. VENTRICLES: There is mild age-related global parenchymal volume loss and proportionate enlargement of the ventricles and cortical sulci. CRANIUM: The skull base and calvarium are normal. The midline sagittal structures are normal. ORBITS: Grossly unremarkable. PARANASAL SINUSES/MASTOIDS: There is moderate mucosal thickening in the paranasal sinuses, fluid level in the left maxillary sinus and fluid in the mastoid air cells. VASCULAR SYSTEM: Skull base flow voids intact. OTHER FINDINGS: None. IMPRESSION: 1. Suspect few tiny embolic infarctions in the right anterior parietal and left frontal cortex. 2. Remote right MCA territory infarctions with resultant cystic encephalomalacia and gliosis in the right parietal, anterior temporal lobes, basal ganglia, anterior limb of internal capsule and caudate head with volume loss and ex vacuo dilatation of the right lateral ventricle. 3. Diffuse increased FLAIR signal in the cortical and cerebella sulci is nonspecific and could be artifactual, the other differential consideration includes proteinaceous CSF and nonspecific meningitis, clinical correlation and follow-up is advised. A preliminary report was provided by [facility] services. Assessment and Plan (1) Acute kidney injury Status: Acute (2) Leukocytosis Status: Acute (3) Lupus nephritis Status: Acute (4) Vomiting and diarrhea Status: Acute (5) SIRS (systemic inflammatory response syndrome) Status: Acute - Assessment and Plan (Free Text) Assessment: A/P- 37 year old female with multiple medical conditions icnlduding HTN SLE, SLE nephritis, and h/o splenectomy and past sinus infectiosn admitted with c/o N/V and diarrhea. remains lethargic intubated leukocytosis even higher today but could be secondary to IV steroids that were started yesterday as well. Gram positive cocci in chains bacteremia x 2 blood cx. TTE no mention of any vegetations as per report. 1.leukocytosis 2.AMS 3.Acute renal insufficiency 4.SLE and SLE nephritis 5.dehydration 6.diarrhea 7.nausea/vomiting 8.GPC in chains bacateremia PLan- await final ID and sensitivity of the GPC in chains of blood cx, most likely strep since pt. is asplenic. Hence advise to continue with IV meropenem day #2(renal dose). also advise to d/c Linezokid that was initiated yesterday since plt are decreasing today. advise to place on IV daptomycin 6mg/kg every 48 hours for GPC bacteremia. advise if LP can be done to send CSF for gram stain and culture and HSV PCR and AFB and fungal culture and TRAVIS virus PCR and for lyme as well. await stool studies as well. check 2 more blood cx. may need SURJIT if continues to have pos blood cx despite being on IV abx. would also add IV clindamycin at this time for anerobic and double gram pos coverage in light of the severe sinusitis seen on imaging as well. f/u with neuro rec as well. All labs, imaging reviewed. all above d/w primary team DR.Pierre Whitlock. ICU time spent 60 minutes.
[2017-03-31 12:32] LABS: HEMATOCRIT 24.4 % (34.0-47.0); MEAN CELL VOLUME 84.2 fl (81.0-99.0); MEAN CORPUSCULAR HEMOGLOBIN 25.8 pg (27.0-31.0); MEAN CORPUSCULAR HGB CONC 30.7 g/dL (33.0-37.0); RED CELL DISTRIBUTION WIDTH 16.7 % (11.5-14.5)
--- NOTE | 2017-03-31 13:10 | CP.PCM.PN ---
Subjective - Date & Time of Evaluation Date of Evaluation: 03/31/17 Time of Evaluation: 13:08 - Subjective Subjective: Progress note for nephrology, Dr. Florian Objective - Vital Signs/Intake and Output Vital Signs (last 24 hours): Temp Pulse Resp BP Pulse Ox 97.7 F 113 H 18 88/44 L 100 03/31/17 12:00 03/31/17 12:00 03/31/17 12:00 03/31/17 12:00 03/31/17 12:00 Intake and Output: 03/31/17 03/31/17 06:59 18:59 Intake Total 1373 Output Total 400 Balance 973 - Medications Medications: Current Medications Aspirin (Aspirin) 325 mg NG DAILY [facility] Clopidogrel Bisulfate (Plavix) 75 mg PO DAILY [facility] Dexamethasone (Decadron Inj) 10 mg IV Q12H [facility] Last Admin: 03/31/17 09:44 Dose: 10 mg Heparin Sodium (Porcine) (Heparin) 5,000 units SC Q12 [facility] PRN Reason: Protocol Last Admin: 03/30/17 20:54 Dose: 5,000 units Metronidazole (Flagyl 500mg/100ml Ns) 100 mls @ 100 mls/hr IVPB Q8 [facility] PRN Reason: Protocol Last Admin: 03/31/17 09:45 Dose: 100 mls/hr Meropenem 500 mg/ Sodium (Chloride) 50 mls @ 50 mls/hr IVPB Q8 [facility] PRN Reason: Protocol Last Admin: 03/31/17 09:52 Dose: 50 mls/hr Linezolid (Zyvox 600mg/300ml D5w) 600 mg in 300 mls @ 300 mls/hr IVPB Q12 [facility] PRN Reason: Protocol Last Admin: 03/31/17 09:55 Dose: 300 mls/hr Propofol (Diprivan) 1,000 mg in 100 mls @ 1.905 mls/hr IV .Q24H [facility]; 5 MCG/KG/ MIN PRN Reason: Protocol Stop: 03/31/17 17:21 Last Admin: 03/30/17 14:10 Dose: 5 mcg/kg/min, 1.905 mls/hr Sodium Bicarbonate 50 meq/ (Dextrose) 1,050 mls @ 125 mls/hr IV .Q8H24M [facility] Stop: 04/01/17 09:06 Last Admin: 03/31/17 09:54 Dose: 125 mls/hr Morphine Sulfate (Morphine) 2 mg IVP Q6 PRN PRN Reason: Pain, moderate (4-7) Mycophenolate Mofetil (Cellcept Cap) 500 mg PO BID [facility] Ondansetron HCl (Zofran Inj) 4 mg IVP Q6 PRN PRN Reason: Nausea/Vomiting Oxymetazoline HCl (Nasal Decongestant 15 Ml) 1 spr NS Q12 PRN PRN Reason: Nasal congestion Pantoprazole Sodium (Protonix Inj) 40 mg IVP DAILY [facility] Last Admin: 03/31/17 09:54 Dose: 40 mg - Labs Labs: 03/31/17 12:26 03/31/17 04:30 PT 12.9 Seconds (9.8-13.1) 03/31/17 11:20 INR 1.2 (0.9-1.2) 03/31/17 11:20 APTT 35.2 Seconds (25.6-37.1) 03/31/17 11:20 Assessment and Plan - Assessment and Plan (Free Text) Assessment: 37 year old femae with past medical history of SLE, lupus nephrtis, Immune thrombocytopenia purpura presented to hospital for
[2017-03-31] MEDS ORDERED: DAPTOmycin 500 mg Inj (Cubicin) IVP SCH (14:15)
--- NOTE | 2017-03-31 14:50 | CARD ---
APPROVED REPORT EXAM: Two-dimensional and M-mode echocardiogram with Doppler and color Doppler. Other Information Quality : GoodRhythm : NSR INDICATION CVA/TIA 2D DIMENSIONS IVSd1.08 (0.7-1.1cm)LVDd4.37 (3.9-5.9cm) LVOT Diameter2.18 (1.8-2.4cm)PWd1.19 (0.7-1.1cm) IVSs1.06 (0.8-1.2cm)LVDs3.84 (2.5-4.0cm) FS (%) 12.1 %PWs1.11 (0.8-1.2cm) M-Mode DIMENSIONS Left Atrium (MM)2.87 (2.5-4.0cm)IVSd1.10 (0.7-1.1cm) Aortic Root2.65 (2.2-3.7cm)LVDd5.16 (4.0-5.6cm) Aortic Cusp Exc.2.04 (1.5-2.0cm)PWd0.94 (0.7-1.1cm) IVSs1.46 cmFS (%) 28 % LVDs3.69 (2.0-3.8cm)PWs1.63 cm Mitral Valve E/A ratio0.0 TDI E/Lateral E'0.0E/Medial E'0.0 Pulmonary Valve PV Peak Iwsxablv93.8cm/s Tricuspid Valve TR Peak [id number] [id number] Peak Gr.20mmHg [id number] LEFT VENTRICLE The left ventricle is normal size. There is normal left ventricular wall thickness. The left ventricular function is normal. The left ventricular ejection fraction is - 55-60%. The left ventricular wall appears to vary from one view to another. But, overall the left ventricular systolic function appears to be within normal limits. Transmitral Doppler flow pattern is abnormal. No left ventricle thrombus noted on this study. There is no ventricular septal defect visualized. There is no left ventricular aneurysm. There is no mass noted in the left ventricle. RIGHT VENTRICLE The right ventricle is normal size. There is normal right ventricular wall thickness. The right ventricular systolic function is normal. ATRIA The left atrium size is normal. There is no thrombus suspected in the left atrium. The right atrium size is normal. The interatrial septum is intact with no evidence for an atrial septal defect. AORTIC VALVE The aortic valve is normal in structure. No aortic regurgitation is present. There is no aortic valvular stenosis. MITRAL VALVE The mitral valve is normal in structure. There is no evidence of mitral valve prolapse. There is no mitral valve stenosis. Mitral regurgitation is trace. TRICUSPID VALVE The tricuspid valve is normal in structure. There is trace tricuspid regurgitation. Right ventricular systolic pressure is estimated at 29 mmHg. There is no tricuspid valve prolapse or vegetation. There is no tricuspid valve stenosis. PULMONIC VALVE The pulmonary valve is normal in structure. There is no pulmonic valvular regurgitation. GREAT VESSELS The aortic root is normal in size. The IVC is normal in size and collapses >50% with inspiration. PERICARDIAL EFFUSION The pericardium appears normal. There is no pleural effusion. <Conclusion> The left ventricle is normal in size and wall thickness. The left ventricular function is normal. The left ventricular ejection fraction is - 55-60%. The left atrium, right ventricle and right atrium are normal in size. The mitral, aortic and tricuspid valves are normal. There is trace mitral regurgitation and trace tricuspid regurgitation.
--- NOTE | 2017-03-31 16:07 | CT ---
PROCEDURE: CT HEAD WITHOUT CONTRAST. HISTORY: Follow up CVA COMPARISON: 03/30/2017. TECHNIQUE: Axial computed tomography images were obtained through the head/brain without intravenous contrast. Radiation dose: Total exam DLP = 960.58 mGy-cm. This CT exam was performed using one or more of the following dose reduction techniques: Automated exposure control, adjustment of the mA and/or kV according to patient size, and/or use of iterative reconstruction technique. FINDINGS: HEMORRHAGE: No intracranial hemorrhage. BRAIN: There are old infarctions in the right parietal and temporal lobes, right basal ganglia, caudate head and anterior limb of internal capsule. There is volume loss and ex vacuo dilatation of the right lateral ventricle. No mass, mass effect or abnormal extra-axial fluid collection. There are mild chronic microangiopathic changes. VENTRICLES: There is mild age-related global parenchymal volume loss and proportionate enlargement of the ventricles and cortical sulci. CALVARIUM: The skull base and calvarium are normal. PARANASAL SINUSES: Pansinusitis. MASTOID AIR CELLS: Right mastoid effusion. OTHER FINDINGS: None. IMPRESSION: No acute intracranial abnormality. Old right MCA territory infarction involving the parietal and temporal lobes, basal ganglia, head of caudate nucleus and anterior limb of internal capsule. Mild chronic microangiopathic changes and mild age-related global parenchymal volume loss.
--- NOTE | 2017-03-31 16:14 | CON ---
DATE: HISTORY OF PRESENT ILLNESS: Ms. Bar is a 37-year-old female who is referred for pulmonary followup following endotracheal intubation for maintenance of airways. She was admitted with a history of lupus, lupus nephritis, ITP, and altered mental status, intubated for maintaining airways and referred for pulmonary followup following intubation. She is presently on a ventilator and is unable to give any history. The brother is at bedside and gives very limited history. PAST MEDICAL HISTORY: As per records, indicate history of lupus, lupus nephritis, ITP, status post splenectomy, history of encephalitis in the past, history of ischemic stroke, hypertension. FAMILY HISTORY: Remarkable for mother who is in a wheelchair and had a stroke in the past. REVIEW OF SYSTEMS: No review of system is available. PHYSICAL EXAMINATION: GENERAL: The patient is intubated and sedated with Diprivan. VITAL SIGNS: Remarkable for blood pressure of 95/66 with a pulse of 119; respiratory rate is spontaneous, 18, but presently patient is on a ventilator; O2 sat is 100%; temperature 98.7 degrees Fahrenheit. SKIN: Shows fair turgor. MOUTH: ET tube in place. LUNGS: Fair aeration. HEART: Tachycardic. BREASTS: Normal. ABDOMEN: Soft, nontender. No organomegaly. EXTREMITIES: Trace edema. CENTRAL NERVOUS SYSTEM: Exam could not be adequately evaluated because the patient is on respirator. LABORATORY DATA: WBC 49.4, hemoglobin 8.7, platelet count 121,000. Sodium 138, potassium 4.9, BUN 63, creatinine 4.8. Arterial blood gas on assist control of 14, FiO2 of 60%, tidal volume of 450, and PEEP of 5, pH is 7.26, pCO2 of 21, pO2 of 108, bicarbonate of 12.4. Chest x-ray, official report pending, but reviewed by me shows no acute cardiopulmonary infiltrate. ET tube is in good position. IMPRESSION: Patient with multisystem pathology with altered mental status and history of lupus with lupus nephritis, idiopathic thrombocytopenic purpura, and altered mental status with a leukocytosis noted on blood work, presently intubated to maintain airways. PLAN: To continue therapy as ordered. We will continue to follow with you. We will monitor vent settings and determine indication for extubation once and if clinically stable. Prognosis is extremely guarded. Patient has already been seen by multiple medical specialties for addressing of multiple problems. We will continue to follow. Carmelo Oliva MD
--- NOTE | 2017-03-31 16:15 | CT ---
PROCEDURE: CT SINUSES WITHOUT CONTRAST HISTORY: sinusitis COMPARISON: None TECHNIQUE: Contiguous axial CT images of the paranasal sinuses were obtained. Coronal and sagittal reformats were generated. Radiation dose: Total exam DLP = 649.56 mGy-cm. This CT exam was performed using one or more of the following dose reduction techniques: Automated exposure control, adjustment of the mA and/or kV according to patient size, and/or use of iterative reconstruction technique. FINDINGS: FRONTAL SINUSES: The frontal sinuses are well developed. There is near complete opacification of the left frontal sinus and fluid in the right frontal sinus. ETHMOID SINUSES: Status post partial ethmoidectomy, there is fluid in the visualized ethmoid air cells and mucosal thickening. SPHENOID SINUSES: Chronic sphenoid sinusitis with superimposed fluid in the left sphenoid chamber MAXILLARY SINUSES: Status post endoscopic sinus surgery, abnormal soft-tissue completely opacifies the right maxillary sinus. There is circumferential mucosal thickening in the left maxillary sinus with a superimposed fluid level. SINUS DRAINAGE: Status post endoscopic sinus surgery. Obstruction of bilateral sphenoid ethmoid and frontal ethmoid recesses. NASAL SEPTUM: No significant deviation. No destructive lesion. MASS: None. SKULL BASE: Unremarkable. TEMPORAL BONES: There is complete opacification of the right mastoid air cells. The left mastoid air cells are clear. There is cerumen in the right external auditory canal. There is also fluid in the right middle ear cavity. Left middle ear cavity is clear. OTHER FINDINGS: None. IMPRESSION: 1. Status post endoscopic sinus surgery, findings are compatible with chronic pansinusitis. Superimposed fluid levels in the left maxillary, left sphenoid and right frontal sinus could be related to intubation however acute sinusitis is a consideration in the appropriate clinical setting. 2. Fluid in the right mastoid air cells and right middle ear cavity could be related to intubation or acute and/or chronic mastoiditis and otitis media. Clinical correlation and follow-up is advised.
[2017-03-31] MEDS ORDERED: Clindamycin 600mg/50ml NS 600 MG/50 ML BAG IVPB SCH (17:00)
--- NOTE | 2017-03-31 21:43 | CP.PCM.PN ---
Subjective - Date & Time of Evaluation Date of Evaluation: 03/31/17 Time of Evaluation: 13:00 - Subjective Subjective: 37 yo F w/ SLE nephritis, htn, previous CVA w/ L sided residual weakness, admitted with altered mental status and severe sepsis after presenting with diarrhea; Patient intubated yesterday to protect airway; underwent MRI brain showing acute infarcts; taken off sedation today but not responding to verbal stimuli; Objective - Vital Signs/Intake and Output Vital Signs (last 24 hours): Temp Pulse Resp BP Pulse Ox 97.7 F 113 H 18 88/44 L 100 03/31/17 12:00 03/31/17 12:00 03/31/17 12:00 03/31/17 12:00 03/31/17 12:00 - Medications Medications: Current Medications Aspirin (Aspirin) 325 mg NG DAILY [facility] Clopidogrel Bisulfate (Plavix) 75 mg PO DAILY [facility] Dexamethasone (Decadron Inj) 10 mg IV Q12H [facility] Last Admin: 03/31/17 09:44 Dose: 10 mg Meropenem 500 mg/ Sodium (Chloride) 50 mls @ 50 mls/hr IVPB Q8 [facility] PRN Reason: Protocol Last Admin: 03/31/17 17:34 Dose: 50 mls/hr Sodium Bicarbonate 50 meq/ (Dextrose) 1,050 mls @ 125 mls/hr IV .Q8H24M [facility] Stop: 04/01/17 09:06 Last Admin: 03/31/17 09:54 Dose: 125 mls/hr Daptomycin 380 mg/ Sodium (Chloride) 100 mls @ 100 mls/hr IV Q48H [facility] PRN Reason: Protocol Stop: 04/05/17 14:46 Last Admin: 03/31/17 16:00 Dose: 100 mls/hr Clindamycin Phosphate (Cleocin In Normal Saline) 600 mg in 50 mls @ 50 mls/hr IVPB Q8 [facility] PRN Reason: Protocol Last Admin: 03/31/17 16:00 Dose: 50 mls/hr Morphine Sulfate (Morphine) 2 mg IVP Q6 PRN PRN Reason: Pain, moderate (4-7) Mycophenolate Mofetil (Cellcept Cap) 500 mg PO BID [facility] Ondansetron HCl (Zofran Inj) 4 mg IVP Q6 PRN PRN Reason: Nausea/Vomiting Oxymetazoline HCl (Nasal Decongestant 15 Ml) 2 spr NS Q12 [facility] Stop: 04/03/17 21:01 Pantoprazole Sodium (Protonix Inj) 40 mg IVP DAILY [facility] Last Admin: 03/31/17 09:54 Dose: 40 mg - Labs Labs: 03/31/17 12:26 03/31/17 04:30 PT 12.9 Seconds (9.8-13.1) 03/31/17 11:20 INR 1.2 (0.9-1.2) 03/31/17 11:20 APTT 35.2 Seconds (25.6-37.1) 03/31/17 11:20 - Constitutional Appears: No Acute Distress - Head Exam Head Exam: NORMAL INSPECTION - Eye Exam Eye Exam: absent: Scleral icterus - ENT Exam ENT Exam: Mucous Membranes Moist - Respiratory Exam Respiratory Exam: Clear to Ausculation Bilateral. absent: Respiratory Distress - Cardiovascular Exam Cardiovascular Exam: Tachycardia, +S1, +S2 - GI/Abdominal Exam GI & Abdominal Exam: Soft. absent: Distended - Extremities Exam Additional comments: mildly edematous; - Neurological Exam Neurological Exam: Awake Additional comments: Opens eyes, responds to tactile stimuli; - Psychiatric Exam Psychiatric exam: absent: Agitated - Skin Skin Exam: Warm. absent: Cyanosis Assessment and Plan (1) Acute kidney injury Assessment & Plan: GAYE on CKD; recent baseline renal function unclear although serum creatinine had increased to 2.0 in July 2016; currently non-oliguric renal failure in the setting of hypotension and severe sepsis; urine sediment (directly visualized) showing significant number of coarse granular casts consistent with ATN; also showing marked pyuria with packed field of WBC's; not much hematuria to suggest SLE flare; Severe metabolic acidosis persists despite being on bicarb drip (which is exacerbating hypocalcemia); -Will continue bicarb drip while trying to avoid volume overload in the setting of ATN; -Calcium gluconate 1 g given earlier today, will repeat; Status: Acute (2) Lupus nephritis Assessment & Plan: Conflicting evidence for lupus flare; high anti-DS DNA Ab indicative of lupus activity but not much hematuria to suggest significant renal involvement at this time; however, patient does have ~4g proteinuria by random Ur prot/creat ratio which is a new finding; nevertheless, in the setting of severe sepsis, would hold off on starting aggressive immunosuppressive regimen until sepsis is controlled; may need repeat renal biopsy at some point; Status: Acute (3) Sepsis Assessment & Plan: Severe sepsis; has gotten enough IVF at this point but still borderline hypotension; gram pos cocci in blood with high procalcitonin level; TTE not mentioning any vegetations; urine micro suggestive of UTI; -should continue aggressive broad spectrum abx for CrCl < 10 ml/min; Status: Acute (4) Chronic kidney disease-mineral and bone disorder Assessment & Plan: Very high PTH level suggestive of worsening renal function even prior to current presentation; will need to start calcitriol once able to take PO meds; Status: Acute (5) Anemia Assessment & Plan: Hgb continues to drop; check iron studies; transfuse as needed; Status: Acute (6) Acute encephalopathy Assessment & Plan: With MRI suggestive of new CVA; with history of previous CVA, need to ascertain anti-phospholipid Ab status (although MRA not mentioning any thrombus), will send relevant workup; question about SLE induced vasculitis causing current presentation; however, any immunosuppressive therapy should likely wait until sepsis is controlled; Status: Acute - Assessment and Plan (Free Text) Assessment: Critical care time spent assessing patient, discussing with family, primary team and CCM team > 35 minutes;
--- NOTE | 2017-03-31 23:09 | CP.PCM.PN ---
Subjective - Date & Time of Evaluation Date of Evaluation: 03/31/17 Time of Evaluation: 10:00 - Subjective Subjective: see below Objective - Vital Signs/Intake and Output Vital Signs (last 24 hours): Temp Pulse Resp BP Pulse Ox 97.7 F 113 H 18 88/44 L 100 03/31/17 12:00 03/31/17 12:00 03/31/17 12:00 03/31/17 12:00 03/31/17 12:00 - Medications Medications: Current Medications Aspirin (Aspirin) 325 mg NG DAILY [facility] Clopidogrel Bisulfate (Plavix) 75 mg PO DAILY [facility] Dexamethasone (Decadron Inj) 10 mg IV Q12H [facility] Last Admin: 03/31/17 09:44 Dose: 10 mg Meropenem 500 mg/ Sodium (Chloride) 50 mls @ 50 mls/hr IVPB Q8 HECTOR PRN Reason: Protocol Last Admin: 03/31/17 17:34 Dose: 50 mls/hr Sodium Bicarbonate 50 meq/ (Dextrose) 1,050 mls @ 125 mls/hr IV .Q8H24M HECTOR Stop: 04/01/17 09:06 Last Admin: 03/31/17 09:54 Dose: 125 mls/hr Daptomycin 380 mg/ Sodium (Chloride) 100 mls @ 100 mls/hr IV Q48H HECTOR PRN Reason: Protocol Stop: 04/05/17 14:46 Last Admin: 03/31/17 16:00 Dose: 100 mls/hr Clindamycin Phosphate (Cleocin In Normal Saline) 600 mg in 50 mls @ 50 mls/hr IVPB Q8 HECTOR PRN Reason: Protocol Last Admin: 03/31/17 16:00 Dose: 50 mls/hr Morphine Sulfate (Morphine) 2 mg IVP Q6 PRN PRN Reason: Pain, moderate (4-7) Mycophenolate Mofetil (Cellcept Cap) 500 mg PO BID [facility] Ondansetron HCl (Zofran Inj) 4 mg IVP Q6 PRN PRN Reason: Nausea/Vomiting Oxymetazoline HCl (Nasal Decongestant 15 Ml) 2 spr NS Q12 [facility]ECTOR Stop: 04/03/17 21:01 Pantoprazole Sodium (Protonix Inj) 40 mg IVP DAILY [facility] Last Admin: 03/31/17 09:54 Dose: 40 mg - Labs Labs: 03/31/17 12:26 03/31/17 04:30 PT 12.9 Seconds (9.8-13.1) 03/31/17 11:20 INR 1.2 (0.9-1.2) 03/31/17 11:20 APTT 35.2 Seconds (25.6-37.1) 03/31/17 11:20 Assessment and Plan - Assessment and Plan (Free Text) Assessment: ENT Consult 37 y/o female admitted over weekend with headache, nausea and vomiting, which progressed to altered mental status requiring intubation. She was treated with z-pack last week for sinusitis. Imaging this weekend revealed significant sinus disease as well as area of stroke in the brain. I was called this morning at 9am for consultation on this patient. I came in immediately and arrived at the bedside at 10am. History was obtained from the patient's brother , who was at bedside, and her mother, whom i spoke with on the telephone. She has a complicated history of complications related to sinus surgery in 2001 when she developed an MCA stroke from a sinus infection while she was traveling in [facility]. She had sinus surgery at that time, and then again around 2005. She has h/o SLE and is on CellCept. Past Medical History see above Exam intubated, sedated right EAC with impacted cerumen; left EAC clear, TM clear no facial swelling nasal endoscopy: b/l nasal cavities decongested with topical Afrin and anesthetized with topical Lidocaine 4%. Using combination of 4mm rigid and flexible endoscopes, both nasal cavities were inspected. there are scar bands from the septum to the IT on both sides. there are post-surgical changes of the middle meatus and posterior nasal cavities bilaterally. no mucopus. there is mild mucosal edema on the right side near the middle turbinate. the left maxillary antrostomy is open and there is some yellow mucus in the floor of the sinus. WBC 49k Imaging reviewed: head CT from 03-30 shows R>L sinus disease, including complete opacification of the right frontal, maxillary and sphenoid; on the left there is partial opacification of all of the sinuses. there is also thickened/ osteitic bone surrounding all of the sinuses. Impression chronic sinusitis with possible acute flare up while it is not entirely clear what the etiology of her [employer] disease is from, the sinuses are a definite and concerning possibility. this patient may require sinus surgery to open up the affected sinuses as seen on imaging both for diagnostic and possible therapeutic purposes. given her multiple prior sinus surgeries with altered sino-nasal anatomy, this patient needs to be transferred to a tertiary medical facility with a dedicated rhinology surgeon. i have contacted my colleague at [facility] (Dr. Saldivar), and he is happy to help in the ENT capacity with this patient. he will speak with the ICU there about arranging a transfer to their ICU [facility]. This was all explained to the patient' s mother (who is also a physician), brother, Dr. De La Cruz (PMD) and the ICU attending. All parties are in agreement. for now, continue broad spectrum IV abx and medical.neurologic work-up and care
[2017-04-01 00:13] LABS: CALCIUM 6.4 mg/dL (8.6-10.2)
--- NOTE | 2017-04-01 08:31 | PN ---
CRITICAL CARE PROGRESS NOTE DATE: 03/31/2017 LOCATION: Patient in ICU, bed 427. TIME SPENT: 40 minutes. SUBJECTIVE: Patient is seen and evaluated at the bedside. Events since admission reviewed. Events overnight reviewed. Intubated on mechanical ventilation, sedated on Diprivan drip. This morning seen by ENT consult. Recommended to hold Plavix and possible transfer to [place] for further evaluation. Patient remains on AC/PRVC rate of 14, tidal volume of 450, FiO2 of 60%, saturating 100%, minute ventilation 8.4 L, observed tidal volume 430, observed rate 19, end-tidal CO2 of 19, sedated on Diprivan drip. PHYSICAL EXAMINATION: VITAL SIGNS: Blood pressure 95/66 to 88/44, mean arterial pressure 58, intake not properly documented, status post 3 L bolus and then 150 mL per hour, weight 140 pounds. HEAD, EYES, EAR, NOSE AND THROAT: Pupils are reactive. Conjunctivae pink. Sclerae anicteric. NECK: Supple. CHEST: Bilateral breath sounds. Clear to auscultation. HEART: Rhythm regular, S1, S2 normal intensity. No S3, S4 gallop. ABDOMEN: Bowel sounds are present, soft. Right femoral triple-lumen in place. EXTREMITIES: Contracted, left hemiparesis. CURRENT MEDICATIONS: Aspirin 325 mg daily, on hold until LP is done; Plavix 75 mg p.o. daily, on hold until LP completed; daptomycin 380 mg q. 48 hours, clindamycin 600 mg IV q. 8 hours, Decadron 10 mg IV q. 12 hours, heparin 5000 units subcutaneous q. 12, meropenem 500 mg q. 8 hours, morphine 2 mg IV q. 6 p.r.n., CellCept on hold, Zofran 4 mg IV q. 6 p.r.n. for nausea, oxymetazoline nasal decongestant 2 sprays both nostrils q. 12 hours, sodium bicarbonate with D5W at 125 mL per hour. LABORATORY DATA: WBC 46,000, hemoglobin 7.5, hematocrit 24.4, platelet count 79. PT 12.9, INR 1.2, PTT 35.2. SMA-7: Sodium 138, potassium 4.9, chloride 111, CO2 of 11, blood urea nitrogen 63, creatinine 4.8, random glucose 204, calcium 5.3, magnesium 1.7, total bilirubin 0.4, AST 78, ALT 58, ammonia level 33, total protein 4.9, albumin 2.1, vitamin D 125-hydroxy level 14.7, procalcitonin . Echocardiogram: Left ventricle is normal in size and wall thickness. Left ventricular function is normal. Left ventricular ejection fraction 55% to 60%. Left atrium, right ventricle and right atrium are normal in size. Mitral, aortic and tricuspid valves are normal. Trace mitral regurgitation and trace tricuspid regurgitation. Chest x-ray: Endotracheal tube in place, nasogastric tube in place, no active disease noted. Repeat sinus CT and head CT pending. 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 No acute or subacute hemorrhage consistent with inflammatory sinus disease, inflammatory mastoid disease. Microbiology: Blood culture positive for gram-positive cocci in chains. IMPRESSION: 1. 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 Blood culture positive for gram-positive cocci in chains consistent with septic metabolic toxic encephalopathy. 2. Pulmonary: Endotracheal tube in satisfactory position. No acute issues. 3. Cardiac: Tachycardia related to systemic inflammatory response syndrome. Continue IV hydration. Sedation with Diprivan. 4. Gastrointestinal: Abnormal liver function test, unclear. We will follow with an ultrasound of the liver, follow up hepatis B and C serology. 5. Renal: Acute renal failure, likely prerenal given the early presentation; however, evaluate for possible acute tubular necrosis secondary to infarction and/or due to lupus nephritis involving the glomerulonephritis; however, urine does not show any evidence of hematuria. 6. Endocrine: No acute issues noted. Continue deep venous thrombosis and gastrointestinal prophylaxis, follow up repeat CT of the head, sinus. Continue recommendations of Neurology, Hematology, Infectious Diseases as well as the ENT. ENT recommendation noted for transfer to [facility] for further evaluation. We will discuss with regarding the same. Cornell Durand MD [facility] # [id number]
--- NOTE | 2017-04-01 14:18 | PCM.EEG ---
Electroencephalogram Report - Electroencephalogram Report Procedure Date: 03/31/17 Interpretation: Indication: Encephalopathy. Medications were reviewed. Technical: This is a digitally recorded electroencephalogram. The international 10-20 electrode placement system is used for scalp electrode placement. Eighteen channels of scalp EEG are recorded Another channel was used for for ECG. The data are stored digitally and reviewed in reformatted montages for optimal display. Diffuse Abnormality: No well formed alpha activity was seen. Frontal intermittent rhythm delta slowing was seen. Focal abnormality: Periodic lateralized discharge was seen. Mainly over the Right temporal area. Seizure activity was noted continuously throughout the recording. Impression: This EEG is abnormal. Epileptiform discharge was seen. This can represent a potential seizure focus. 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 The patient was transferred, but I communicated with the patient's physician and informed them at [facility] in the Medical ICU to start treatment immediately.
== END 2017-03-31 18:30 | disposition short-term general hospital (02) | DRG 584 ==
LOC: H.ER 22:03 → H.ERHOLD 03-30 01:18 → H.ICU/CCU 03-30 05:36
PROVIDERS: ADMIT Family Medicine Geriatric Medicine; ATTEND Family Medicine Geriatric Medicine
PROC: 5A1945Z Respiratory Ventilation, 24-96 Consecutive Hours (ICD-10-PCS; 2017-03-30)
PROC: 06HM33Z Insertion of Infusion Device into Right Femoral Vein, Percutaneous Approach (ICD-10-PCS; 2017-03-30)
PROC: 0BH17EZ Insertion of Endotracheal Airway into Trachea, Via Natural or Artificial Opening (ICD-10-PCS; 2017-03-30)
PROC: 09JY8ZZ Inspection of Sinus, Via Natural or Artificial Opening Endoscopic (ICD-10-PCS; principal; 2017-03-31)
DX: A41.9 Sepsis, unspecified organism (principal); I63.511 Cerebral infarction due to unspecified occlusion or stenosis of right middle cerebral artery; G93.41 Metabolic encephalopathy; D69.3 Immune thrombocytopenic purpura; N17.9 Acute kidney failure, unspecified; E87.2 Acidosis; M32.14 Glomerular disease in systemic lupus erythematosus; E83.42 Hypomagnesemia; E83.51 Hypocalcemia; N18.9 Chronic kidney disease, unspecified; R65.20 Severe sepsis without septic shock; E86.0 Dehydration; I69.354 Hemiplegia and hemiparesis following cerebral infarction affecting left non-dominant side; D72.823 Leukemoid reaction; Z99.3 Dependence on wheelchair; Z88.0 Allergy status to penicillin; Z91.040 Latex allergy status; Z87.891 Personal history of nicotine dependence; E78.5 Hyperlipidemia, unspecified; K52.9 Noninfective gastroenteritis and colitis, unspecified; D63.8 Anemia in other chronic diseases classified elsewhere; J32.9 Chronic sinusitis, unspecified; B35.9 Dermatophytosis, unspecified; I12.9 Hypertensive chronic kidney disease with stage 1 through stage 4 chronic kidney disease, or unspecified chronic kidney disease